=== PATIENT | female | born 2000 | race Caucasian/White ===

== ENCOUNTER 2020-10-01 13:57 | Outpatient (REF) | payer OTHER, SELFPAY | END 2020-10-01 13:58 | disposition home or self-care (01) | LOC: HO.LAB 13:57 | PROVIDERS: PCP Internal Medicine; Visit Provider Internal Medicine | DX: Z20.828 Contact with and (suspected) exposure to other viral communicable diseases (principal) | CPT/HCPCS: C9803; U0003 ==

== ENCOUNTER 2021-02-09 07:48 | Outpatient (REF) | payer OTHER, SELFPAY ==
[2021-02-09 10:28] LABS: SARS COV2 PCR INHOUSE NEGATIVE (Negative)
== END 2021-02-09 07:49 | disposition home or self-care (01) ==
LOC: HO.LAB 07:48
PROVIDERS: Visit Provider Internal Medicine
DX: Z20.822 Contact with and (suspected) exposure to COVID-19 (principal)
CPT/HCPCS: C9803; U0003

== ENCOUNTER 2021-11-09 09:21 | Outpatient (REF) | payer MEDICAID, SELFPAY ==
[2021-11-09 10:19] LABS: COVID-19 Test Negative (Negative); IDNOW Serial# 55D5AD1C
== END 2021-11-09 09:22 | disposition home or self-care (01) ==
LOC: HO.LAB 09:21
PROVIDERS: Visit Provider Internal Medicine
DX: Z20.822 Contact with and (suspected) exposure to COVID-19 (principal)
CPT/HCPCS: 36415; 87635; C9803

== ENCOUNTER 2021-11-09 12:53 | Emergency (ER) | payer MEDICAID, SELFPAY ==
--- NOTE | ~2021-11-09 | XR_ITS ---
EXAMINATION: XR ABDOMEN KUB CLINICAL INDICATION: Abdominal pain and constipation. COMPARISON: None TECHNIQUE: AP view of the abdomen. FINDINGS: There is scattered stool and gas seen throughout the colon without distention. The small bowel loops are normal. No radiopaque calculi or organomegaly. No gross bony abnormality. XR/XR KUB IMPRESSION: Mild constipation.
[2021-11-09 14:10] VITALS: BP 151/92; PULSE 120; RESP 18; TEMP 36.4; O2SAT 96; BMI 44.6
--- NOTE | 2021-11-09 15:05 | ED.GENADULT ---
HPI - General Adult General Chief complaint: General Medical Stated complaint: anal pain Time Seen by Provider: 11/09/21 14:05 Source: patient Mode of arrival: ambulatory Limitations: no limitations History of Present Illness HPI narrative: This is a 21-year-old female no known medical history presenting to the emergency department with complaints of diffuse abdominal pain, rectal pain, constipation alternating with diarrhea x1 week. Patient tells me her last bowel movement was 2 days ago, she tells me that this is not normal for her. She tells me she has been passing hard stool, and she reports rectal pain. She reports the rectal pain as a stinging/burning sensation worse with defecation. She tells me she cannot pinpoint exactly where on her abdomen it hurts she tells me it is diffuse and she describes as a discomfort. Patient has been able to eat and drink. She denies chest pain, shortness of breath, fevers, chills, nausea, vomiting, weakness. She denies blood in stool. Onset (ago): week(s) (1) Location: buttocks (rectal pain ) Radiation: non-radiation Severity: severe Quality: constant and other (stinging ) Pain Consistency: constant Relieving factors: none Exacerbating factors: none Associated symptoms: denies other symptoms Treatments prior to arrival: none Related Data Previous Rx's Medication Instructions Recorded docusate sodium 100 mg capsule 100 mg PO BID #20 cap 11/09/21 (Colace) polyethylene glycol 3350 17 17 g PO BID PRN #238 g 11/09/21 gram/dose oral powder (Miralax) pramoxine 1 % topical foam 1 appl ID BID #15 g 11/09/21 (Proctofoam) sennosides 8.6 mg tablet (senna) 8.6 mg PO BEDTIME #14 tab 11/09/21 Allergies Allergy/AdvReac Type Severity Reaction Status Date / Time bee pollen [BEE STINGS] Allergy Unknown LEGS SWELL Unverified 07/24/20 16:40 UP poppyseed oil [POPPYSEED OIL] Allergy Unknown ITCHY Unverified 07/24/20 16:40 THROAT Review of Systems Review of Systems: Constitutional : No Weight loss, No Fever, No Chills ENT/Mouth :? No sore throat, No Rhinorrhea Eyes: No Swelling, No Redness Cardiovascular : No Chest Pain, No SOB, NoEdema Respiratory : No Cough, No Sputum, No Wheezing Gastrointestinal : No Nausea, No Vomiting, positive Diarrhea, positive abdominal Pain, No Hematochezia, No Melena, positive constipation Genitourinary : No Dysuria, No Urinary Frequency, No Hematuria, No Urgency Musculoskeletal : No joint pain, No Myalgias, No Joint Swelling Skin : No Skin Lesions, No rash Neuro : No Weakness, No Numbness, No Dizziness, No Headache Psych : No Anxiety/Panic, No Depression Heme/Lymph: No Bruising, No Lymphadenopathy Endocrine : No Polyuria, No Polydipsia All other systems reviewed and are negative. Yes all other systems are reviewed and are negative [facility] Past Medical History Attestation statement: The following information was validated with the patient. Source: old records reviewed and nursing notes reviewed Medical History PCOS (polycystic ovarian syndrome) Social History Social History Advance Directives: No Advance Directives Information Provided: No Patient : No Physical Exam Vital Signs: Vital Signs: Last Vital Signs Temp 97.5 F 11/09/21 14:10 Pulse 104 H 11/09/21 16:22 Resp 18 11/09/21 16:22 BP 124/79 11/09/21 16:22 Pulse Ox 96 11/09/21 16:22 BMI result Body Mass Index 44.6 Vital signs stable. Patient noted to be slightly tachycardic however, likely secondary to anxiety. Appearance: Alert.? Oriented X3.? No acute distress.? Head: Normocephalic, atraumatic, no step-offs or deformities Eyes: Pupils equal, round and reactive to light.? ENT: Pharynx normal.? Neck: Normal inspection.? Neck supple.? CVS: Normal heart rate and rhythm.? Pulses normal.? Respiratory: No respiratory distress.? Breath sounds normal.? Rectal exam: +pain with external palpation, small linear skin tear noted. No hemorrhoid lumps or masses upon palpation. Abdomen: Soft and nontender.? Skin: Skin warm and dry.? Normal skin color.? Normal skin turgor.? Extremities: No lower extremity edema.? No calf ttp. 5/5 strength to bilateral upper and lower extremities Back: No midline tenderness, no C-spine tenderness, full range of motion, no CVA tenderness bilaterally Neuro: Oriented X 3.? No motor deficit.? No sensory deficit. Course Reevaluation(s) Reevaluation #1: KUB shows mild constipation. UA no acute infection. Patient still anxious. Patient will be given Colace and senna. She will be discharged home on Colace, senna and MiraLax. I have also given patient a Fleet enema. I have advised her to return to the emergency department with new or worsening symptoms. Feel comfortable with discharge home. Time: 16:19 Medical Decision Making [facility] Narrative Medical decision making narrative: [age] yo f pmhx PCOS presents with diarrhea alternating with constipation, diffuse abdominal discomfort and rectal pain x1 week. Upon physical examination there is pain with external palpation of rectum and there is a small linear skin tear noted. No hemorrhoid lumps or masses upon palpation. Rest of the physical examination is benign. Vital signs stable, slightly likely secondary to anxiety. Plan at this time is to obtain a KUB. I will give her senna and Colace. I will also give her Fleet enema for home. Medical Records Medical records reviewed: Yes I reviewed the patient's medical records. Lab Data Lab results reviewed: Yes I reviewed the patient's lab results. Imaging Data KUB: Attestation: I personally reviewed and interpreted this imaging study as follows: Radiologist's impression: FINDINGS: There is scattered stool and gas seen throughout the colon without distention. The small bowel loops are normal. No radiopaque calculi or organomegaly. No gross bony abnormality. XR/XR KUB IMPRESSION: Mild constipation. ? Critical Care Time Critical Care Time Critical Care Time: No Discharge Plan Discharge Clinical Impression: Rectal tear, Constipation, Irritable bowel syndrome Patient Disposition: Home, Self-Care Instructions: Constipation (ED), Laceration (ED), Fleet Enema (ED) Additional Instructions: Take your medications as prescribed. If you were prescribed antibiotics today, it is important that you take your medication to their entirety, do not skip any doses, do not finish them early. Follow-up with your primary care provider this week. Return to the emergency department with new or worsening symptoms. In case of emergency call 911 Prescriptions: New sennosides [senna] 8.6 mg tablet 8.6 mg PO BEDTIME Qty: 14 RF: 0 docusate sodium [Colace] 100 mg capsule 100 mg PO BID Qty: 20 RF: 0 polyethylene glycol 3350 [Miralax] 17 gram/dose powder 17 g PO BID PRN (Reason: constipation) Qty: 238 RF: 0 pramoxine [Proctofoam] 1 % foam 1 appl ID BID Qty: 15 RF: 0 Referrals: Mary Lim NP [Primary Care Provider] - 2 days Stand Alone Forms: Work/School Release
[2021-11-09] MEDS: Docusate Sodium 100 MG CAPSULE PO (15:37)
[2021-11-09] MEDS: Sodium Phosphate,Mono-Dibasic 133 ML ENEMA PR (15:37)
[2021-11-09 16:22] VITALS: BP 124/79; PULSE 104; RESP 18; O2SAT 96
== END 2021-11-09 16:29 | disposition home or self-care (01) ==
PROVIDERS: Emergency Provider Emergency Medicine; PCP Registered Nurse
DX: K62.81 Anal sphincter tear (healed) (nontraumatic) (old) (principal); K58.0 Irritable bowel syndrome with diarrhea; R00.0 Tachycardia, unspecified; F41.9 Anxiety disorder, unspecified
CPT/HCPCS: 74018; 99283

== ENCOUNTER 2021-12-17 13:54 | Emergency (ER) | payer MEDICAID, SELFPAY ==
[2021-12-17 14:02] VITALS: BP 138/84; PULSE 98; RESP 18; TEMP 36.4; O2SAT 100; BMI 40.3
--- NOTE | 2021-12-17 14:19 | ED.BACK ---
HPI - Back Pain/Injury General Chief Complaint: Back Pain/Injury Stated Complaint: back pain fall Time Seen by Provider: 12/17/21 14:18 Source: patient Mode of arrival: ambulatory Limitations: no limitations History of Present Illness HPI Narrative: 21 y/o female presents to the ER with left upper back pain after she slipped and fell into amount of ice yesterday morning. She states she slipped and fell back onto her left hip and in her left back. She reports soreness and tightness in the left back below her left shoulder blade. She has been taking Motrin and using Lidoderm patches with some minimal improvement. She also been using a heating pad some improvement. She went to work today where she has to do a lot of lifting and using of her arms and reports she was unable to perform her duties so she came to the ER for evaluation. She denies any chest pain or shortness of breath. She denies any shoulder pain. No current hip pain. She is ambulatory. MD elicited complaint: back injury and fall Onset (ago): day(s) (1) Timing: intermittent Severity: moderate Similar Symptoms Previously: No Quality: aching and spasming Location: left upper back Radiation: none Exacerbating factors: movement and lifting Relieving factors: medication and supine Context: fall Associated symptoms: denies other symptoms Treatments prior to arrival: NSAIDS Work related injury: No Related Data Previous Rx's Medication Instructions Recorded docusate sodium 100 mg capsule 100 mg PO BID #20 cap 11/09/21 (Colace) polyethylene glycol 3350 17 17 g PO BID PRN #238 g 11/09/21 gram/dose oral powder (Miralax) pramoxine 1 % topical foam 1 appl MS BID #15 g 11/09/21 (Proctofoam) sennosides 8.6 mg tablet (senna) 8.6 mg PO BEDTIME #14 tab 11/09/21 cyclobenzaprine 10 mg tablet 10 mg PO TID PRN #10 tab 12/17/21 ibuprofen 600 mg tablet 600 mg PO Q8H PRN #20 tab 12/17/21 Allergies Allergy/AdvReac Type Severity Reaction Status Date / Time bee pollen [BEE STINGS] Allergy Unknown LEGS SWELL Unverified 07/24/20 16:40 UP poppyseed oil [POPPYSEED OIL] Allergy Unknown ITCHY Unverified 07/24/20 16:40 THROAT Review of Systems Review of Systems: Constitutional: No Fever, No Chills Cardiovascular: No Chest Pain, No SOB Gastrointestinal: No Nausea, No Vomiting,No abdominal Pain Musculoskeletal: No joint pain,+ Myalgias Skin: No Skin Lesions, No rash Neuro: No Weakness, No Numbness, No Dizziness, No Headache Heme/Lymph: No Bruising PMFSH Past Medical History Medical History PCOS (polycystic ovarian syndrome) Social History Social History Advance Directives: No Advance Directives Information Provided: Yes Physical Exam Vital Signs: Vital Signs: Last Vital Signs Temp 97.5 F 12/17/21 14:02 Pulse 98 12/17/21 14:02 Resp 18 12/17/21 14:02 BP 138/84 12/17/21 14:02 Pulse Ox 100 12/17/21 14:02 BMI result Body Mass Index 40.3 Appearance: Alert. Oriented X3. No acute distress. HEENT: normal inspection CVS: Normal heart rate and rhythm. Pulses normal. Respiratory: No respiratory distress. Lungs CTAB Skin: Skin warm and dry. Normal skin color. Normal skin turgor. No rashes. Back: normal inspection, no abrasions or ecchymosis. Inferior to left scapula there is soft tissue tenderness and palpable muscle spasm. nontender scapula Extremities: normal inspection, normal ROM x4. nontender throughout Neuro: Oriented X 3. No motor deficit. No sensory deficit. Course Course Course Narrative: 21-year-old female presents with upper back pain after she slipped and fell into ice and snow yesterday. On examination she has muscle tenderness and spasm inferiorly to her left scapula with a palpable band of muscle knot. Normal ROM of the shoulder. her pain is most likely due to muscle strain and spasm. doubt acute scapular fracture given force required to break that bone. She has no SOB or chest pain. Will plan to continue NSAID and lidoderm and add muscle relaxer. Patient agrees with plan. Stable for d/c. Critical Care Time Critical Care Time Critical Care Time: No Discharge Plan Discharge Clinical Impression: Acute upper back pain Patient Disposition: Home, Self-Care Instructions: Muscle Spasm (ED) Additional Instructions: Your pain is most likely due to muscle strain and spasm. No bending, lifting or twisting. Use ice several times per day for 20 minutes at a time for the next 48 hours and then change to heat. Take medications as prescribed to help with pain and discomfort. Follow up with your Primary Care Doctor this week. If your pain worsens, if you develop new numbness, tingling, weakness, loss of function or incontinence call 911 or come back to the ER right away for evaluation. Prescriptions: New cyclobenzaprine 10 mg tablet 10 mg PO TID PRN (Reason: muscle spasm) Qty: 10 0RF ibuprofen 600 mg tablet 600 mg PO Q8H PRN (Reason: fever or pain) Qty: 20 0RF No Action sennosides [senna] 8.6 mg tablet 8.6 mg PO BEDTIME Qty: 14 0RF docusate sodium [Colace] 100 mg capsule 100 mg PO BID Qty: 20 0RF polyethylene glycol 3350 [Miralax] 17 gram/dose powder 17 g PO BID PRN (Reason: constipation) Qty: 238 0RF pramoxine [Proctofoam] 1 % foam 1 appl MS BID Qty: 15 0RF Stand Alone Forms: Work/School Release
== END 2021-12-17 14:54 | disposition home or self-care (01) ==
PROVIDERS: Emergency Provider Emergency Medicine Emergency Medical Services
DX: S29.9XXA Unspecified injury of thorax, initial encounter (principal); S40.212A Abrasion of left shoulder, initial encounter; M25.552 Pain in left hip; M25.512 Pain in left shoulder; W00.0XXA Fall on same level due to ice and snow, initial encounter; Y93.9 Activity, unspecified; Y92.9 Unspecified place or not applicable; Y99.9 Unspecified external cause status; Z79.899 Other long term (current) drug therapy
CPT/HCPCS: 99283

== ENCOUNTER 2023-03-02 14:00 | Emergency (ER) | payer OTHER, SELFPAY ==
--- NOTE | ~2023-03-02 | CT_ITS ---
EXAMINATION: CT ABDOMEN AND PELVIS WITH CONTRAST CLINICAL INFORMATION: Left flank pain, UTI symptoms COMPARISON: CT abdomen pelvis 04/12/2020 TECHNIQUE: Multidetector volumetric images were obtained from the superior aspect of the liver through the pubic symphysis following administration 85 mL of Omnipaque 350 intravenous contrast. Sagittal and coronal reformatted images were obtained on the technologist's workstation. Oral contrast: No This CT examination was performed using dose optimization techniques as appropriate, variously including the following: *Automated exposure control *Adjustment of mA and/or kV according to patient size (this includes techniques or standardized protocols for targeted exams where dose is matched to indication/reason for exam; i.e. extremities or head) *Use of iterative reconstruction technique DLP: 799 mGy-cm FINDINGS: LUNG BASES: Unremarkable. ABDOMINAL AND PELVIC WALL: Unremarkable. LIVER AND BILIARY TREE: Hypoattenuating hepatic parenchyma compatible with hepatic steatosis. GALLBLADDER: Unremarkable. PANCREAS: Unremarkable. SPLEEN: Unremarkable. ADRENAL GLANDS: Unremarkable. KIDNEYS AND URETERS: Subcentimeter left renal hypodensity too small to characterize. GASTROINTESTINAL TRACT: Large and small bowel are nondilated without evidence of bowel obstruction. Normal appendix. VASCULAR: Unremarkable. LYMPH NODES/PERITONEUM: No lymphadenopathy. FREE FLUID: None. BLADDER: Unremarkable. PELVIC VISCERA: Unremarkable. OSSEOUS STRUCTURES: Unremarkable. CT/CT abdomen pelvis w IV con IMPRESSION: No acute findings to explain symptoms of abdominal pain. Hepatic steatosis.
[2023-03-02 14:33] VITALS: BP 132/94; PULSE 98; RESP 18; TEMP 36.6; O2SAT 99; BMI 39.4
--- NOTE | 2023-03-02 14:33 | ED.GENADULT ---
HPI - General Adult General Chief complaint: Abdominal Pain <KAYLEE Marie - Last Filed: 03/02/23 14:36> Stated complaint: Low back pain <KAYLEE Marie - Last Filed: 03/02/23 14:36> Time Seen by Provider: 03/02/23 16:06 <KAYLEE Marie - Last Filed: 03/02/23 14:36> Source: patient, family and RN notes reviewed <Zenon Posada - Last Filed: 03/02/23 19:43> Mode of arrival: ambulatory <Zenon Posada - Last Filed: 03/02/23 19:43> Limitations: no limitations <Zenon Posada - Last Filed: 03/02/23 19:43> History of Present Illness HPI narrative: 22-year-old female past medical history significant for obesity, diabetes presents for evaluation of left flank pain. She reports her symptoms started 2 or 3 days ago. She reports occasional dysuria Her pain radiates around to her lower abdomen. Reports some general malaise denies any fevers or chills Reports some nausea without vomiting. No diarrhea Patient denies any history of abdominal surgeries Denies sick contacts No abnormal vaginal bleeding or discharge <Zenon Posada - Last Filed: 03/02/23 19:43> Related Data Home medications: Previous Rx's Medication Instructions Recorded docusate sodium 100 mg capsule 100 mg PO BID #20 caps 11/09/21 (Colace) polyethylene glycol 3350 17 17 g PO BID PRN constipation #238 11/09/21 gram/dose oral powder (Miralax) grams pramoxine 1 % topical foam 1 appl [place] BID #15 grams 11/09/21 (Proctofoam) sennosides 8.6 mg tablet (senna) 8.6 mg PO BEDTIME #14 tabs 11/09/21 cyclobenzaprine 10 mg tablet 10 mg PO TID PRN muscle spasm #10 12/17/21 tabs ibuprofen 600 mg tablet 600 mg PO Q8H PRN fever or pain 12/17/21 #20 tabs nitrofurantoin 100 mg PO Q12H 7 days #14 caps 03/02/23 monohydrate/macrocrystals 100 mg capsule (Macrobid) <KAYLEE Marie - Last Filed: 03/02/23 14:36> Allergies/adverse reactions: Allergies Allergy/AdvReac Type Severity Reaction Status Date / Time bee pollen [BEE STINGS] Allergy Unknown LEGS SWELL Verified 03/02/23 14:35 UP poppyseed oil [POPPYSEED OIL] Allergy Unknown ITCHY Verified 03/02/23 14:35 THROAT <KAYLEE Marie - Last Filed: 03/02/23 14:36> Review of Systems Constitutional: Constitutional: Reports as per HPI, Denies chills, Denies fever(s), Denies headache(s) and Reports malaise <Zenon Posada - Last Filed: 03/02/23 19:43> ENT: Denies headache(s) <Zenon Posada - Last Filed: 03/02/23 19:43> Cardiovascular: Cardiovascular: Denies chest pain and Denies dyspnea <Zenon Posada - Last Filed: 03/02/23 19:43> Respiratory: Respiratory: Denies cough and Denies dyspnea <Zenon Posada - Last Filed: 03/02/23 19:43> Gastrointestinal: Gastrointestinal: Reports abdominal pain, Denies constipation, Reports nausea and Denies vomiting <Zenon Posada - Last Filed: 03/02/23 19:43> Genitourinary: Genitourinary: Reports dysuria <Zenon Posada - Last Filed: 03/02/23 19:43> Musculoskeletal: Musculoskeletal: Reports back pain and Reports myalgias <Zenon Posada - Last Filed: 03/02/23 19:43> Neurologic: Denies headache(s) and Denies focal weakness <Zenon Posada - Last Filed: 03/02/23 19:43> PMFSH Past Medical History Medical History: Medical History PCOS (polycystic ovarian syndrome) <KAYLEE Marie - Last Filed: 03/02/23 14:36> Social History Social History: Social History Smoked in Last 30 Days: No Use of substances other than those prescribed or required for medical reasons: Yes Substance Use Type: Marijuana Substance Use Frequency: Occasionally Advance Directives: No Advance Directives Information Provided: No <KAYLEE Marie - Last Filed: 03/02/23 14:36> Physical Exam ED Vital Signs: Vital Signs - 24 hr 03/02/23 14:33 03/02/23 17:20 Temperature 97.8 F Pulse Rate 98 69 Respiratory Rate 18 14 Blood Pressure 132/94 H 125/76 Pulse Oximetry 99 98 Oxygen Delivery Method Room Air Room Air BMI result Body Mass Index 39.4 <KAYLEE Marie - Last Filed: 03/02/23 14:36> Vital Signs - 24 hr 03/02/23 14:33 03/02/23 17:20 Temperature 97.8 F Pulse Rate 98 69 Respiratory Rate 18 14 Blood Pressure 132/94 H 125/76 Pulse Oximetry 99 98 Oxygen Delivery Method Room Air Room Air BMI result Body Mass Index 39.4 <Zenon Posada - Last Filed: 03/02/23 19:43> Const General: healthy appearing, comfortable, no acute distress, alert and awake <Zenon Posada - Last Filed: 03/02/23 19:43> Nutritional Appearance: well nourished <Zenon Posada - Last Filed: 03/02/23 19:43> Orientation/consciousness: patient oriented x3 <Zenon Posada - Last Filed: 03/02/23 19:43> HENMT Head: Yes normocephalic and Yes atraumatic <Zenon Posada - Last Filed: 03/02/23 19:43> Throat: Yes posterior oropharynx normal <Zenon Posada - Last Filed: 03/02/23 19:43> Eyes Eyelids: Yes eyelids normal <Zenon Posada - Last Filed: 03/02/23 19:43> Conjunctivae: conjunctivae normal <Zenon Whitty - Last Filed: 03/02/23 19:43> Sclerae: sclerae normal <Zenon Whitty - Last Filed: 03/02/23 19:43> Corneas: corneas normal <Zenon Whitty - Last Filed: 03/02/23 19:43> Pupils: Equal, round and reactive pupils present < Last Filed: 03/02/23 19:43> EOM: EOMs intact bilaterally < Last Filed: 03/02/23 19:43> Neck Neck: Yes full ROM < Last Filed: 03/02/23 19:43> Resp Effort & Inspection: normal respiratory effort, able to speak in complete sentences, no audible wheezes and not labored < Last Filed: 03/02/23 19:43> Auscultation: clear to auscultation bilaterally < Last Filed: 03/02/23 19:43> Cardio Rate: regular rate < Last Filed: 03/02/23 19:43> Rhythm: regular rhythm < Last Filed: 03/02/23 19:43> GI Inspection: No distended and Yes obesity < Last Filed: 03/02/23 19:43> Palpation (GI): Soft to palpation, not firm, nontender, no guarding and not rigid < Last Filed: 03/02/23 19:43> Auscultation: normoactive bowel sounds < Last Filed: 03/02/23 19:43> Skin General skin exam: no rashes or lesions noted and elasticity normal < Last Filed: 03/02/23 19:43> Neuro General: patient oriented x3 < Last Filed: 03/02/23 19:43> Cranial nerves: Yes Equal, round and reactive pupils present and Yes Bilaterally intact EOM present < Last Filed: 03/02/23 19:43> Cognition (Neuro): normal cognition < Last Filed: 03/02/23 19:43> Extrem Other: Moving all extremities well without any obvious deformities < Last Filed: 03/02/23 19:43> Course Course Course Narrative: This is an RME: Additional HPI, ROS, PE not included below will be deferred to primary provider. 22 year old female with PMH of pyelonephritis presents to the ED with a few days of left flank pain and urinary symptoms. Patient reports her urine and slightly cloudy and foul smelling. UTI-like symptoms. PE: L sided CVA tenderness Plan: Labs, urine, imaging <KAYLEE Marie - Last Filed: 03/02/23 14:36> Reevaluation(s) Reevaluation #1: Patient's workup significant for hyperglycemia, no evidence of DKA. She does have a mild UTI. CT without acute findings. This was all discussed with the patient and her mother who is bedside. <Zenon Posada - Last Filed: 03/02/23 19:43> Time: 19:41 <Zenon Posada - Last Filed: 03/02/23 19:43> Medications Administered Discontinued Medications Generic Name Dose Route Start Last Admin Trade Name Freq PRN Reason Stop Dose Admin Sodium Chloride 1,000 mls @ 999 mls/hr 03/02/23 14:45 03/02/23 18:45 Ns IV 03/02/23 15:45 Infused .Q1H1M EDWARD Infusion Iohexol 100 ml 03/02/23 17:33 03/02/23 17:34 Iohexol 350 Mg/Ml 100 Ml Infus..Btl IV 03/02/23 17:34 85 ml ONCE ONE Administration Ketorolac Tromethamine 30 mg 03/02/23 17:31 03/02/23 17:36 Ketorolac Tromethamine 30 Mg/Ml Vial IVPUSH 03/02/23 17:32 30 mg ONCE ONE Administration <KAYLEE Marie - Last Filed: 03/02/23 14:36> Medications Administered Discontinued Medications Generic Name Dose Route Start Last Admin Trade Name Freq PRN Reason Stop Dose Admin Sodium Chloride 1,000 mls @ 999 mls/hr 03/02/23 14:45 03/02/23 18:45 Ns IV 03/02/23 15:45 Infused .Q1H1M EDWARD Infusion Iohexol 100 ml 03/02/23 17:33 03/02/23 17:34 Iohexol 350 Mg/Ml 100 Ml Infus..Btl IV 03/02/23 17:34 85 ml ONCE ONE Administration Ketorolac Tromethamine 30 mg 03/02/23 17:31 03/02/23 17:36 Ketorolac Tromethamine 30 Mg/Ml Vial IVPUSH 03/02/23 17:32 30 mg ONCE ONE Administration <Zenon Posada - Last Filed: 03/02/23 19:43> Medical Decision Making Medical Decision Making MDM Narrative: This is a healthy 22-year-old female presents for evaluation of left flank pain. She reports some urinary complaints. Denies any blood in the urine. Most likely UTI/pyelonephritis. Will check labs, CT scan the abdomen pelvis. UA pending. Patient medicated with Toradol IM <Zenon Posada - Last Filed: 03/02/23 19:43> Differential Diagnosis UTI Pyelonephritis Obstructive uropathy Flank pain Gastroenteritis <Zenon Posada - Last Filed: 03/02/23 19:43> Lab Data Result Diagrams: 03/02/23 15:37 03/02/23 15:37 <KAYLEE Marie - Last Filed: 03/02/23 14:36> Labs: Lab Results 03/02/23 03/02/23 03/02/23 Range/Units 15:37 15:37 15:37 WBC 8.1 (4.8-10.8) X10*3/uL RBC 5.39 (4.20-5.50) X10*6/uL Hgb 15.9 (12.0-16.0) g/dl Hct 46.0 (37.0-47.0) % MCV 85.3 (80.0-98.0) fL MCH 29.5 (27.0-33.0) pg MCHC 34.6 (31.0-35.0) g/dl RDW 12.3 (11.0-16.0) % Plt Count 173 (160-400) X10*3/uL MPV 10.4 (9.4-12.3) fL Immature Gran % (Auto) 0.4 (0.0-0.4) % Neut % (Auto) 53.6 (45-73) % Lymph % (Auto) 34.6 (20-40) % [place] % (Auto) 7.5 (2-11) % Eos % (Auto) 3.3 (0-4) % Baso % (Auto) 0.6 (0-2) % Lymph # (Auto) 2.8 (1.2-4.9) X10*3/uL [place] # (Auto) 0.6 (0.1-1.2) X10*3/uL Eos # (Auto) 0.3 (0.0-0.4) X10*3/uL Baso # (Auto) 0.1 (0.0-0.2) X10*3/uL Abs Immat Gran (auto) 0.03 (0.00-0.03) X10*3/uL Absolute Neuts (auto) 4.4 (2.0-8.3) x10*3/uL Absolute Nucleated RBC 0.000 (0.0-0.012) X10*3/uL Nucleated RBC % (auto) 0.0 (0.0-0.2) /100WBC Smear Tech's Comments VERIFIED Sodium 137 (135-145) mmol/L Potassium 4.4 (3.3-5.1) mmol/L Chloride 109 H (96-108) mmol/L Carbon Dioxide 20 L (22-29) mmol/L Anion Gap 12 (12-20) BUN 11 (9-16) mg/dL Creatinine 0.82 (0.5-1.4) mg/dL Estim Creat Clear Calc 124.4 Estimated GFR > 60 Random Glucose 323 H (60-115) mg/dL Calcium 8.7 (8.4-10.2) mg/dL Magnesium 1.9 (1.6-2.6) mg/dL Total Bilirubin 0.5 (0.0-1.0) mg/dL AST 59 H (5-31) U/L ALT 125 H (0-31) U/L Alkaline Phosphatase 56 (39-117) U/L Total Protein 6.5 (6.5-8.0) g/dL Albumin 3.9 (3.5-5.0) g/dL Beta HCG, Quant < 2 mIU/mL Urine Color Urine Appearance Urine pH (5.0-9.0) Ur Specific [place] (1.005-1.025) Urine Protein (Neg-Trace) mg/dL Urine Glucose (UA) (Negative) mg/dL Urine Ketones (Negative) mg/dL Urine Blood (Negative) Urine Nitrite (Negative) Ur Leukocyte Esterase (Negative) Urine RBC (0-2) /HPF Urine WBC (0-5) /HPF Ur Squamous Epith Cells (0-2) /HPF Urine Bacteria (None Seen) Hyaline Casts (0-2) /LPF Urine Yeast 03/02/23 Range/Units 17:01 WBC (4.8-10.8) X10*3/uL RBC (4.20-5.50) X10*6/uL Hgb (12.0-16.0) g/dl Hct (37.0-47.0) % MCV (80.0-98.0) fL MCH (27.0-33.0) pg MCHC (31.0-35.0) g/dl RDW (11.0-16.0) % Plt Count (160-400) X10*3/uL MPV (9.4-12.3) fL Immature Gran % (Auto) (0.0-0.4) % Neut % (Auto) (45-73) % Lymph % (Auto) (20-40) % [place] % (Auto) (2-11) % Eos % (Auto) (0-4) % Baso % (Auto) (0-2) % Lymph # (Auto) (1.2-4.9) X10*3/uL [place] # (Auto) (0.1-1.2) X10*3/uL Eos # (Auto) (0.0-0.4) X10*3/uL Baso # (Auto) (0.0-0.2) X10*3/uL Abs Immat Gran (auto) (0.00-0.03) X10*3/uL Absolute Neuts (auto) (2.0-8.3) x10*3/uL Absolute Nucleated RBC (0.0-0.012) X10*3/uL Nucleated RBC % (auto) (0.0-0.2) /100WBC Smear Tech's Comments Sodium (135-145) mmol/L Potassium (3.3-5.1) mmol/L Chloride (96-108) mmol/L Carbon Dioxide (22-29) mmol/L Anion Gap (12-20) BUN (9-16) mg/dL Creatinine (0.5-1.4) mg/dL Estim Creat Clear Calc Estimated GFR Random Glucose (60-115) mg/dL Calcium (8.4-10.2) mg/dL Magnesium (1.6-2.6) mg/dL Total Bilirubin (0.0-1.0) mg/dL AST (5-31) U/L ALT (0-31) U/L Alkaline Phosphatase (39-117) U/L Total Protein (6.5-8.0) g/dL Albumin (3.5-5.0) g/dL Beta HCG, Quant mIU/mL Urine Color Yellow Urine Appearance Clear Urine pH 5.5 (5.0-9.0) Ur Specific [place] >= 1.030 H (1.005-1.025) Urine Protein Negative (Neg-Trace) mg/dL Urine Glucose (UA) >=1000 H (Negative) mg/dL Urine Ketones Trace (Negative) mg/dL Urine Blood Negative (Negative) Urine Nitrite Negative (Negative) Ur Leukocyte Esterase Trace H (Negative) Urine RBC 3-5 H (0-2) /HPF Urine WBC 11-20 (0-5) /HPF Ur Squamous Epith Cells 11-20 (0-2) /HPF Urine Bacteria 1+ (None Seen) Hyaline Casts 0-2 (0-2) /LPF Urine Yeast Present <KAYLEE Marie - Last Filed: 03/02/23 14:36> Lab Results 03/02/23 03/02/23 03/02/23 Range/Units 15:37 15:37 15:37 WBC 8.1 (4.8-10.8) X10*3/uL RBC 5.39 (4.20-5.50) X10*6/uL Hgb 15.9 (12.0-16.0) g/dl Hct 46.0 (37.0-47.0) % MCV 85.3 (80.0-98.0) fL MCH 29.5 (27.0-33.0) pg MCHC 34.6 (31.0-35.0) g/dl RDW 12.3 (11.0-16.0) % Plt Count 173 (160-400) X10*3/uL MPV 10.4 (9.4-12.3) fL Immature Gran % (Auto) 0.4 (0.0-0.4) % Neut % (Auto) 53.6 (45-73) % Lymph % (Auto) 34.6 (20-40) % [place] % (Auto) 7.5 (2-11) % Eos % (Auto) 3.3 (0-4) % Baso % (Auto) 0.6 (0-2) % Lymph # (Auto) 2.8 (1.2-4.9) X10*3/uL [place] # (Auto) 0.6 (0.1-1.2) X10*3/uL Eos # (Auto) 0.3 (0.0-0.4) X10*3/uL Baso # (Auto) 0.1 (0.0-0.2) X10*3/uL Abs Immat Gran (auto) 0.03 (0.00-0.03) X10*3/uL Absolute Neuts (auto) 4.4 (2.0-8.3) x10*3/uL Absolute Nucleated RBC 0.000 (0.0-0.012) X10*3/uL Nucleated RBC % (auto) 0.0 (0.0-0.2) /100WBC Smear Tech's Comments VERIFIED Sodium 137 (135-145) mmol/L Potassium 4.4 (3.3-5.1) mmol/L Chloride 109 H (96-108) mmol/L Carbon Dioxide 20 L (22-29) mmol/L Anion Gap 12 (12-20) BUN 11 (9-16) mg/dL Creatinine 0.82 (0.5-1.4) mg/dL Estim Creat Clear Calc 124.4 Estimated GFR > 60 Random Glucose 323 H (60-115) mg/dL Calcium 8.7 (8.4-10.2) mg/dL Magnesium 1.9 (1.6-2.6) mg/dL Total Bilirubin 0.5 (0.0-1.0) mg/dL AST 59 H (5-31) U/L ALT 125 H (0-31) U/L Alkaline Phosphatase 56 (39-117) U/L Total Protein 6.5 (6.5-8.0) g/dL Albumin 3.9 (3.5-5.0) g/dL Beta HCG, Quant < 2 mIU/mL Urine Color Urine Appearance Urine pH (5.0-9.0) Ur Specific [place] (1.005-1.025) Urine Protein (Neg-Trace) mg/dL Urine Glucose (UA) (Negative) mg/dL Urine Ketones (Negative) mg/dL Urine Blood (Negative) Urine Nitrite (Negative) Ur Leukocyte Esterase (Negative) Urine RBC (0-2) /HPF Urine WBC (0-5) /HPF Ur Squamous Epith Cells (0-2) /HPF Urine Bacteria (None Seen) Hyaline Casts (0-2) /LPF Urine Yeast 03/02/23 Range/Units 17:01 WBC (4.8-10.8) X10*3/uL RBC (4.20-5.50) X10*6/uL Hgb (12.0-16.0) g/dl Hct (37.0-47.0) % MCV (80.0-98.0) fL MCH (27.0-33.0) pg MCHC (31.0-35.0) g/dl RDW (11.0-16.0) % Plt Count (160-400) X10*3/uL MPV (9.4-12.3) fL Immature Gran % (Auto) (0.0-0.4) % Neut % (Auto) (45-73) % Lymph % (Auto) (20-40) % [place] % (Auto) (2-11) % Eos % (Auto) (0-4) % Baso % (Auto) (0-2) % Lymph # (Auto) (1.2-4.9) X10*3/uL [place] # (Auto) (0.1-1.2) X10*3/uL Eos # (Auto) (0.0-0.4) X10*3/uL Baso # (Auto) (0.0-0.2) X10*3/uL Abs Immat Gran (auto) (0.00-0.03) X10*3/uL Absolute Neuts (auto) (2.0-8.3) x10*3/uL Absolute Nucleated RBC (0.0-0.012) X10*3/uL Nucleated RBC % (auto) (0.0-0.2) /100WBC Smear Tech's Comments Sodium (135-145) mmol/L Potassium (3.3-5.1) mmol/L Chloride (96-108) mmol/L Carbon Dioxide (22-29) mmol/L Anion Gap (12-20) BUN (9-16) mg/dL Creatinine (0.5-1.4) mg/dL Estim Creat Clear Calc Estimated GFR Random Glucose (60-115) mg/dL Calcium (8.4-10.2) mg/dL Magnesium (1.6-2.6) mg/dL Total Bilirubin (0.0-1.0) mg/dL AST (5-31) U/L ALT (0-31) U/L Alkaline Phosphatase (39-117) U/L Total Protein (6.5-8.0) g/dL Albumin (3.5-5.0) g/dL Beta HCG, Quant mIU/mL Urine Color Yellow Urine Appearance Clear Urine pH 5.5 (5.0-9.0) Ur Specific [place] >= 1.030 H (1.005-1.025) Urine Protein Negative (Neg-Trace) mg/dL Urine Glucose (UA) >=1000 H (Negative) mg/dL Urine Ketones Trace (Negative) mg/dL Urine Blood Negative (Negative) Urine Nitrite Negative (Negative) Ur Leukocyte Esterase Trace H (Negative) Urine RBC 3-5 H (0-2) /HPF Urine WBC 11-20 (0-5) /HPF Ur Squamous Epith Cells 11-20 (0-2) /HPF Urine Bacteria 1+ (None Seen) Hyaline Casts 0-2 (0-2) /LPF Urine Yeast Present <Zenon Posada - Last Filed: 03/02/23 19:43> Discharge Plan Discharge Clinical Impression: Urinary tract infection <KAYLEE Marie - Last Filed: 03/02/23 14:36> Patient Disposition: Home, Self-Care <KAYLEE Marie - Last Filed: 03/02/23 14:36> Instructions: Urinary Tract Infection in Women (ED) <KAYLEE Marie - Last Filed: 03/02/23 14:36> Additional Instructions: Your CT scan did not show any abnormal findings. Your blood work was only significant for high blood sugar which was treated with IV fluids. Follow-up with your primary doctor regarding this Your urine sample did show a UTI Take Macrobid twice daily for the next 7 days <KAYLEE Marie - Last Filed: 03/02/23 14:36> Prescriptions: New nitrofurantoin monohyd/m-cryst [Macrobid] 100 mg capsule 100 mg PO Q12H 7 Days Qty: 14 0RF Rx Instructions: must administer with a meal/food No Action sennosides [senna] 8.6 mg tablet 8.6 mg PO BEDTIME Qty: 14 0RF docusate sodium [Colace] 100 mg capsule 100 mg PO BID Qty: 20 0RF polyethylene glycol 3350 [Miralax] 17 gram/dose powder 17 g PO BID PRN (Reason: constipation) Qty: 238 0RF pramoxine [Proctofoam] 1 % foam 1 appl [place] BID Qty: 15 0RF cyclobenzaprine 10 mg tablet 10 mg PO TID PRN (Reason: muscle spasm) Qty: 10 0RF ibuprofen 600 mg tablet 600 mg PO Q8H PRN (Reason: fever or pain) Qty: 20 0RF <KAYLEE Marie - Last Filed: 03/02/23 14:36>
[2023-03-02 15:55] LABS: Eosinophils Absolute Auto 0.3 X10*3/uL (0.0-0.4); PLT CLUMP 1; SCAN SMEAR FLAG 1
[2023-03-02 15:57] LABS: Basophils Absolute Auto 0.1 X10*3/uL (0.0-0.2); Basophils Percent Auto 0.6 % (0-2); Eosinophils Percent Auto 3.3 % (0-4); Hemoglobin 15.9 g/dl (12.0-16.0); Imm Gran Abs Auto 0.03 X10*3/uL (0.00-0.03); Imm Gran Pct Auto 0.4 % (0.0-0.4); Lymphocytes Absolute Auto 2.8 X10*3/uL (1.2-4.9); Lymphocytes Percent Auto 34.6 % (20-40); MANUAL DIFF FLAG SCAN; Mean Corpuscular HGB Conc 34.6 g/dl (31.0-35.0); Mean Corpuscular Hemoglobin 29.5 pg (27.0-33.0); Mean Corpuscular Volume 85.3 fL (80.0-98.0); Mean Platelet Volume 10.4 fL (9.4-12.3); Monocytes Absolute Auto 0.6 X10*3/uL (0.1-1.2); Monocytes Percent Auto 7.5 % (2-11); Neutrophils Absolute Auto 4.4 x10*3/uL (2.0-8.3); Neutrophils Percent Auto 53.6 % (45-73); Red Blood Count 5.39 X10*6/uL (4.20-5.50); Red Cell Distribution Width 12.3 % (11.0-16.0)
[2023-03-02 16:15] LABS: White Blood Count 8.1 X10*3/uL (4.8-10.8)
[2023-03-02 16:18] LABS: Platelet Count 173 X10*3/uL (160-400); SLIDE REVIEW VERIFIED
[2023-03-02 16:32] LABS: Alanine Aminotransferase 125 U/L (0-31); Albumin Level 3.9 g/dL (3.5-5.0); Alkaline Phosphatase 56 U/L (39-117); Anion Gap 12 (12-20); Aspartate Amino Transferase 59 U/L (5-31); Bilirubin Total 0.5 mg/dL (0.0-1.0); Blood Urea Nitrogen 11 mg/dL (9-16); Calcium 8.7 mg/dL (8.4-10.2); Carbon Dioxide 20 mmol/L (22-29); Chloride 109 mmol/L (96-108); Creatinine Clr Calc Pharmacy 124.4; Estimated Glomerular Filt Rate > 60; Glucose Random 323 mg/dL (60-115); Magnesium 1.9 mg/dL (1.6-2.6); Potassium 4.4 mmol/L (3.3-5.1); Sodium 137 mmol/L (135-145); Total Protein 6.5 g/dL (6.5-8.0)
[2023-03-02 17:00] LABS: HCG Quantitative < 2 mIU/mL
[2023-03-02 17:11] LABS: Appearance Urine Clear; Color Urine Yellow; Glucose Urine UA >=1000 mg/dL (Negative); Leukocyte Esterase Urine Trace (Negative); Nitrite Urine Negative (Negative); PH 5.5 (5.0-9.0); Specific Gravity - Urine >= 1.030 (1.005-1.025); UMIC TRIGGER UACC YES; Urine Blood Negative (Negative); Urine Ketones Trace mg/dL (Negative); Urine Protein Negative (Neg-Trace)
[2023-03-02] MEDS: 0.9 % Sodium Chloride 1,000 ML 999 ML IV (17:14)
[2023-03-02 17:20] VITALS: BP 125/76; PULSE 69; RESP 14; O2SAT 98
[2023-03-02] MEDS: iohexoL 350 MG/ML 100 ML INFUS..BTL IV (17:34)
[2023-03-02] MEDS: Ketorolac Tromethamine 30 MG/ML VIAL IVPUSH (17:36)
[2023-03-02 17:57] LABS: Bacteria Urine 1+ (None Seen); Hyaline Casts Urine 0-2 /LPF (0-2); UACC Culture Trigger YES
[2023-03-02 19:51] VITALS: BP 121/82; PULSE 84; RESP 16; TEMP 37.5; O2SAT 98
== END 2023-03-02 20:11 | disposition home or self-care (01) ==
PROVIDERS: Physician Assistant; Emergency Provider Emergency Medicine; PCP Family Medicine
DX: N39.0 Urinary tract infection, site not specified (principal); M54.50 Low back pain, unspecified; Z79.899 Other long term (current) drug therapy
CPT/HCPCS: 36415; 74177; 80053; 81001; 83735; 84702; 85025; 87086; 87147; 96361; 96374; 99284; J1885; Q9967

== ENCOUNTER 2024-01-13 15:00 | Emergency (ER) | payer OTHER, SELFPAY ==
[2024-01-13 15:05] VITALS: BP 127/84; PULSE 97; RESP 18; TEMP 36.8; O2SAT 95; BMI 40.0
--- NOTE | 2024-01-13 15:05 | ED_ITS ---
HPI - General Adult General Chief complaint: Abdominal Pain Stated complaint: kidney infection? Time Seen by Provider: 01/13/24 16:29 Source: patient and RN notes reviewed Mode of arrival: ambulatory Limitations: no limitations History of Present Illness HPI narrative: This is a 23-year-old female, with a history of asthma, type 2 diabetes, who presents emergency department with complaints of ongoing dysuria, foul-smelling urine, and bilateral flank pain. She states that 1 week ago she developed dysuria and foul smelling urine 1 wek ago. Patient states that 2 days ago she went to her primary care physician was diagnosed with a urinary tract infection. She states that initially the urine dipstick was negative however urine cultures were sent and she was told that she had a urinary tract infection. She was prescribed Bactrim DS, which she took 2 doses of. Upon looking at the pill bottle, this was was to be taken twice a day for the next 14 days. She was only taking this once a day. She endorses subjective fevers and chills. Also endorsing some nausea and suprapubic pain. Denies any vaginal discharge or bleeding. Her last menstrual cycle was 1 month ago. She is not sexually active, no concerns for any sexually transmitted infections. Denies any other complaints or concerns at this time. MD complaint: UTI Onset (ago): day(s) Radiation: back Relieving factors: none Exacerbating factors: none Associated symptoms: denies other symptoms Treatments prior to arrival: none Related Data Previous Rx's Medication Instructions Recorded docusate sodium 100 mg capsule 100 mg PO BID #20 caps 11/09/21 (Colace) polyethylene glycol 3350 17 17 g PO BID PRN constipation #238 11/09/21 gram/dose oral powder (Miralax) grams pramoxine 1 % topical foam 1 appl DC BID #15 grams 11/09/21 (Proctofoam) sennosides 8.6 mg tablet (senna) 8.6 mg PO BEDTIME #14 tabs 11/09/21 cyclobenzaprine 10 mg tablet 10 mg PO TID PRN muscle spasm #10 12/17/21 tabs ibuprofen 600 mg tablet 600 mg PO Q8H PRN fever or pain 12/17/21 #20 tabs nitrofurantoin 100 mg PO Q12H 7 days #14 caps 03/02/23 monohydrate/macrocrystals 100 mg capsule (Macrobid) doxycycline hyclate 100 mg capsule 100 mg PO BID 14 days #28 caps 01/13/24 metronidazole 500 mg tablet 500 mg PO BID 14 days #28 tabs 01/13/24 Allergies Allergy/AdvReac Type Severity Reaction Status Date / Time bee pollen [BEE STINGS] Allergy Unknown LEGS SWELL Verified 03/02/23 14:35 UP poppyseed oil [POPPYSEED OIL] Allergy Unknown ITCHY Verified 03/02/23 14:35 THROAT Review of Systems 2 Review of Systems: Yes all other systems are reviewed and are negative Constitutional: Constitutional: Reports as per [facility] Past Medical History Attestation statement: The following information was validated with the patient. Medical History PCOS (polycystic ovarian syndrome) Social History Social History Alcohol intake: current Alcohol intake frequency: holidays/special occasions only Smoked in Last 30 Days: No Use of substances other than those prescribed or required for medical reasons: No Substance Use Type: Marijuana Advance Directives: No Advance Directives Information Provided: No Physical Exam ED Vital Signs: Vital Signs - 24 hr 01/13/24 15:05 01/13/24 19:28 Temperature 98.2 F 97.6 F Pulse Rate 97 90 Respiratory Rate 18 18 Blood Pressure 127/84 117/80 Pulse Oximetry 95 98 Oxygen Delivery Method Room Air Room Air BMI result Body Mass Index 40.0 Const General: cooperative, comfortable and no acute distress Orientation/consciousness: patient oriented x3 Limitations: no limitations [facility] Head: Yes normal to inspection, Yes normocephalic and Yes atraumatic Ears: hearing grossly normal bilaterally General nose exam: Normal external nose present Face and sinus: Yes normal facial exam Mouth: Normal oral and palatal mucosa present, oropharynx normal and moist mucous membranes Throat: Yes posterior oropharynx normal Eyes General: appearance normal, both eyes and all related structures Eyelids: Yes eyelids normal Conjunctivae: conjunctivae normal Sclerae: sclerae normal Pupils: Equal, round and reactive pupils present EOM: EOMs intact bilaterally Neck Neck: Yes normal visual inspection, Yes full ROM and Yes no lymphadenopathy Lymphatic: no lymphadenopathy noted Chest Chest palpation & inspection: normal inspection of the chest Resp Effort & Inspection: normal respiratory effort and able to speak in complete sentences Auscultation: clear to auscultation bilaterally, no crackles, no rales, no rhonchi and no wheezes Cardio Rate: regular rate Rhythm: regular rhythm Heart sounds: S1 normal heart sound present and S2 normal heart sound present GI Other: suprapubic tenderness. No rebound or guarding. Normal active bowel sounds present. Inspection: Yes normal to inspection Other: Pelvic examination performed with solid waste landfill technician present. Normal external genitalia noted, no erythema or edema noted. Cervical OS closed with yellow/green discharge noted in the vaginal vault. Bimanual examination revealing cervical motion tenderness. Speculum Exam - Vagina: normal appearance of the vagina Speculum Exam - Cervix: normal appearance of the cervix Bimanual exam- vagina & uterus: uterine size normal Bimanual Exam- Adnexa, other: normal adnexae Skin General skin exam: no rashes or lesions noted Trauma: no lacerations or abrasions Wounds: no wounds Neuro General: patient oriented x3 and moves all extremities Cranial nerves: Yes Equal, round and reactive pupils present Extrem General: Yes normal to inspection Right upper extremity: normal to inspection Left upper extremity: normal to inspection Right lower extremity: normal to inspection Left lower extremity: normal to inspection Course Course Course Narrative: RME performed by Lula Penaloza PA-C. Patient is a 23 year old assigned female at presenting to the emergency department with abdominal pain after finishing antibiotics for a UTI. Detailed physical exam and review of systems are deferred to the investigative shopper. Labs ordered. Patient placed back in the waiting room pending room availability and results. Medications Administered Discontinued Medications Generic Name Dose Route Start Last Admin Trade Name Kristopherq PRN Reason Stop Dose Admin Ceftriaxone Sodium 500 mg/ 0 mg 01/13/24 19:28 01/13/24 19:56 Lidocaine HCl 1 ml IM 01/13/24 19:29 500 kit ONCE ONE Administration Doxycycline Monohydrate 100 mg 01/13/24 19:28 01/13/24 19:55 Doxycycline Monohydrate 100 Mg Capsule PO 01/13/24 19:29 100 mg ONCE ONE Administration Metronidazole 500 mg 01/13/24 19:28 01/13/24 19:55 Metronidazole 500 Mg Tablet PO 01/13/24 19:29 500 mg ONCE ONE Administration Medical Decision Making Medical Decision Making [facility] Narrative: This is a 23-year-old female presenting to the emergency department for evaluation of suprapubic pain, bilateral flank pain, dysuria, urinary frequency and urgency x 1 week. Patient was seen by her primary care physician 2 days ago and was told that she had a urinary tract infection. On arrival, patient nontoxic appearing, vital signs within normal limits. Patient has positive CVA tenderness bilaterally. She also has suprapubic tenderness. Patient was discharged on Bactrim DS 2 days ago which he has not been compliant with as she misread the instructions and has only been taking it once a day. She states that she has had 2 doses so far. She reports that her symptoms are not improving. Discussed case with my attending physician, Dr. Milner. Given suprapubic tenderness on examination with urine revealing no profound UTI, despite two doses of ABX, concern for PID. Pelvic examination revealing +cervical motion tenderness, findings consistent with PID. Pt treated with ceftriaxone and d/c with doxycycline and flagyl. She will f/u with OBGYN and PCP. Given return precautions. She is stable for d/c. Differential Diagnosis Differential Diagnoses: The differential diagnosis associated with the presentation includes Urinary tract infection, pyelonephritis, acute cystitis, nephrolithiasis Admission/Observation Consideration of admission/observation: Escalation of care including admission/observation considered Lab Data MDM Lab Attestation statement: I reviewed the patient's lab results. Patient has no leukocytosis, H&H within normal limits, no evidence of anemia. Hyperglycemic at 223. Slight elevation liver transaminases ALT, which she has a history of, improved since baseline, she is not . UA with >1000 glucose, 1+ bacteria, with many squamous cells. Does not appear to be infected, rather contaminated. 01/13/24 15:20 01/13/24 15:20 Labs: Lab Results 01/13/24 01/13/24 Range/Units 15:20 17:26 WBC 8.8 (4.8-10.8) X10*3/uL RBC 5.20 (4.20-5.50) X10*6/uL Hgb 15.6 (12.0-16.0) g/dl Hct 44.1 (37.0-47.0) % MCV 84.8 (80.0-98.0) fL MCH 30.0 (27.0-33.0) pg MCHC 35.4 H (31.0-35.0) g/dl RDW 12.4 (11.0-16.0) % Plt Count 196 (160-400) X10*3/uL MPV 9.6 (9.4-12.3) fL Immature Gran % (Auto) 0.3 (0.0-0.4) % Neut % (Auto) 53.2 (45-73) % Lymph % (Auto) 34.7 (20-40) % [place] % (Auto) 7.9 (2-11) % Eos % (Auto) 3.3 (0-4) % Baso % (Auto) 0.6 (0-2) % Lymph # (Auto) 3.1 (1.2-4.9) X10*3/uL [place] # (Auto) 0.7 (0.1-1.2) X10*3/uL Eos # (Auto) 0.3 (0.0-0.4) X10*3/uL Baso # (Auto) 0.1 (0.0-0.2) X10*3/uL Abs Immat Gran (auto) 0.03 (0.00-0.03) X10*3/uL Absolute Neuts (auto) 4.7 (2.0-8.3) x10*3/uL Absolute Nucleated RBC 0.000 (0.0-0.012) X10*3/uL Nucleated RBC % (auto) 0.0 (0.0-0.2) /100WBC Sodium 137 (135-145) mmol/L Potassium 3.9 (3.3-5.1) mmol/L Chloride 107 (96-108) mmol/L Carbon Dioxide 25 (22-29) mmol/L Anion Gap 9 L (12-20) BUN 9 (9-16) mg/dL Creatinine 0.80 (0.5-1.4) mg/dL Estim Creat Clear Calc 127.4 Estimated GFR > 60 Random Glucose 223 H (60-115) mg/dL Calcium 9.3 D (8.4-10.2) mg/dL Magnesium 1.8 (1.6-2.6) mg/dL Total Bilirubin 0.5 (0.0-1.0) mg/dL AST 29 (5-31) U/L ALT 79 H (0-31) U/L Alkaline Phosphatase 62 (39-117) U/L Total Protein 7.2 (6.5-8.0) g/dL Albumin 4.1 (3.5-5.0) g/dL Beta HCG, Quant < 2 mIU/mL Urine Color Yellow Urine Appearance Clear Urine pH 5.5 (5.0-9.0) Ur Specific [place] >= 1.030 H (1.005-1.025) Urine Protein Negative (Neg-Trace) mg/dL Urine Glucose (UA) >=1000 H (Negative) mg/dL Urine Ketones Negative (Negative) mg/dL Urine Blood Negative (Negative) Urine Nitrite Negative (Negative) Ur Leukocyte Esterase Negative (Negative) Urine RBC 0-2 (0-2) /HPF Urine WBC 0-5 (0-5) /HPF Ur Squamous Epith Cells 6-10 (0-2) /HPF Urine Bacteria 1+ (None Seen) Hyaline Casts 0-2 (0-2) /LPF Chronic Conditions Patient?s care impacted by: Diabetes Discharge Plan Discharge Clinical Impression: Acute pelvic inflammatory disease (PID) Patient Disposition: Home, Self-Care Instructions: Pelvic Inflammatory Disease (ED) Additional Instructions: Your seen in the emergency department due to ongoing abdominal pain. Your exam is consistent with something called pelvic inflammatory disease. You received a dose of ceftriaxone, which is a type of antibiotic. I am also prescribing you doxycycline, this is an antibiotic. Please take this twice a day for the next 14 days. I am also prescribing metronidazole, which is to be taken twice a day for the next 14 days as well. You received your 1st dose in the emergency department of these medications. Please follow-up with your OBGYN, call on Tuesday to make an appointment. Please also follow-up with your primary care physician regarding this visit. Your urine does not appear to be infected today, we will call you with any abnormal results. If any new or worsening symptoms occur including but not limited to worsening pain fevers, chills, please return for re-evaluation. Prescriptions: New doxycycline hyclate 100 mg capsule 100 mg PO BID 14 Days Qty: 28 0RF metronidazole 500 mg tablet 500 mg PO BID 14 Days Qty: 28 0RF No Action sennosides [senna] 8.6 mg tablet 8.6 mg PO BEDTIME Qty: 14 0RF docusate sodium [Colace] 100 mg capsule 100 mg PO BID Qty: 20 0RF polyethylene glycol 3350 [Miralax] 17 gram/dose powder 17 g PO BID PRN (Reason: constipation) Qty: 238 0RF pramoxine [Proctofoam] 1 % foam 1 appl DC BID Qty: 15 0RF cyclobenzaprine 10 mg tablet 10 mg PO TID PRN (Reason: muscle spasm) Qty: 10 0RF ibuprofen 600 mg tablet 600 mg PO Q8H PRN (Reason: fever or pain) Qty: 20 0RF nitrofurantoin monohyd/m-cryst [Macrobid] 100 mg capsule 100 mg PO Q12H 7 Days Qty: 14 0RF Rx Instructions: must administer with a meal/food Interventions: ED Discharge Assessment Last Done: 01/13/24 20:05 Discharge Date/Time: 01/13/24 19:55
[2024-01-13 15:24] LABS: MANUAL DIFF FLAG NO
[2024-01-13 15:26] LABS: Basophils Absolute Auto 0.1 X10*3/uL (0.0-0.2); Basophils Percent Auto 0.6 % (0-2); Eosinophils Absolute Auto 0.3 X10*3/uL (0.0-0.4); Eosinophils Percent Auto 3.3 % (0-4); Hematocrit 44.1 % (37.0-47.0); Hemoglobin 15.6 g/dl (12.0-16.0); Imm Gran Abs Auto 0.03 X10*3/uL (0.00-0.03); Imm Gran Pct Auto 0.3 % (0.0-0.4); Lymphocytes Absolute Auto 3.1 X10*3/uL (1.2-4.9); Lymphocytes Percent Auto 34.7 % (20-40); Mean Corpuscular HGB Conc 35.4 g/dl (31.0-35.0); Mean Corpuscular Volume 84.8 fL (80.0-98.0); Mean Platelet Volume 9.6 fL (9.4-12.3); Monocytes Absolute Auto 0.7 X10*3/uL (0.1-1.2); Monocytes Percent Auto 7.9 % (2-11); Neutrophils Absolute Auto 4.7 x10*3/uL (2.0-8.3); Neutrophils Percent Auto 53.2 % (45-73); Platelet Count 196 X10*3/uL (160-400); Red Cell Distribution Width 12.4 % (11.0-16.0); White Blood Count 8.8 X10*3/uL (4.8-10.8)
[2024-01-13 15:39] LABS: Alanine Aminotransferase 79 U/L (0-31); Albumin Level 4.1 g/dL (3.5-5.0); Alkaline Phosphatase 62 U/L (39-117); Anion Gap 9 (12-20); Aspartate Amino Transferase 29 U/L (5-31); Bilirubin Total 0.5 mg/dL (0.0-1.0); Blood Urea Nitrogen 9 mg/dL (9-16); Calcium 9.3 mg/dL (8.4-10.2); Carbon Dioxide 25 mmol/L (22-29); Chloride 107 mmol/L (96-108); Creatinine Clr Calc Pharmacy 127.4; Estimated Glomerular Filt Rate > 60; Glucose Random 223 mg/dL (60-115); Magnesium 1.8 mg/dL (1.6-2.6); Potassium 3.9 mmol/L (3.3-5.1); Sodium 137 mmol/L (135-145); Total Protein 7.2 g/dL (6.5-8.0)
[2024-01-13 15:50] LABS: HCG Quantitative < 2 mIU/mL
[2024-01-13 17:46] LABS: Appearance Urine Clear; Color Urine Yellow; Glucose Urine UA >=1000 mg/dL (Negative); Leukocyte Esterase Urine Negative (Negative); Nitrite Urine Negative (Negative); PH 5.5 (5.0-9.0); Specific Gravity - Urine >= 1.030 (1.005-1.025); UMIC TRIGGER UACC YES; Urine Blood Negative (Negative); Urine Protein Negative (Neg-Trace)
[2024-01-13 18:00] LABS: Bacteria Urine 1+ (None Seen); Hyaline Casts Urine 0-2 /LPF (0-2); RBC Urine 0-2 /HPF (0-2); Urine Ketones Negative (Negative); WBC Urine 0-5 /HPF (0-5)
[2024-01-13 19:28] VITALS: BP 117/80; PULSE 90; RESP 18; TEMP 36.4; O2SAT 98
[2024-01-13] MEDS: Doxycycline Monohydrate 100 MG CAPSULE PO (19:55)
[2024-01-13] MEDS: metroNIDAZOLE 500 MG TABLET PO (19:55)
[2024-01-13] MEDS: cefTRIAXone sodium 500 MG, Lidocaine HCl 1 % MPF 1 ML IM (19:56)
[2024-01-14 09:45] LABS: CT PCR NOT DETECTED (Not Detect.); NG PCR NOT DETECTED (Not Detect.)
[2024-01-14 12:06] LABS: BV Int Neg Control Negative (Negative); BV Int Pos Control Positive (Positive)
== END 2024-01-13 19:55 | disposition home or self-care (01) ==
PROVIDERS: Physician Assistant Medical; Emergency Provider Emergency Medicine Emergency Medical Services; PCP Family Medicine
DX: N73.9 Female pelvic inflammatory disease, unspecified (principal); E11.9 Type 2 diabetes mellitus without complications
CPT/HCPCS: 0353U; 36415; 80053; 81001; 83735; 84702; 85025; 87480; 87510; 87660; 96372; 99284; J0696

== ENCOUNTER 2024-09-02 23:24 | Emergency (ER) | payer MEDICAID, SELFPAY ==
[2024-09-02 23:29] VITALS: BP 133/85; PULSE 117; RESP 20; TEMP 37.4; O2SAT 96
[2024-09-02 23:32] VITALS: BMI 45.0
[2024-09-02 23:56] LABS: MANUAL DIFF FLAG NO
--- NOTE | 2024-09-02 23:56 | ED_ITS ---
HPI - Nausea/Vomiting/Diarrhea General Chief complaint: Nausea/Vomiting/Diarrhea Stated complaint: Vomiting Time Seen by Provider: 09/02/24 23:37 Source: patient Mode of arrival: ambulatory Limitations: no limitations History of Present Illness ED Provider: RASHEEDA SETH Narrative: 24 yo female with PMH of DM on trulicity and metformin here with c/o eating ham that was undercooked at restaurant a very short time later patient developed abdominal cramps, diarrhea, nausea and vomiting. She vomited so much at one point she noted dark blood in it - she is not on thinners. She denies travel or antibiotic use. She notes she has had low grade subjective fevers as well. No sick contacts. MD elicited complaint: nausea, vomiting, diarrhea and abdominal pain Onset (ago): day(s) (last night) Description of vomiting: watery, bilious and coffee grounds Description of diarrhea: watery Associated nausea: Yes Associated abdominal pain: Yes Location of pain: diffuse Radiation: diffuse Pain consistency: intermittent Severity: moderate Quality: cramping Exacerbating factors: eating Context: possible food poisoning Associated symptoms: fever/chills, loss of appetite, malaise, nausea/vomiting and weakness Related Data Previous Rx's ?Medication ?Instructions ?Recorded docusate sodium 100 mg capsule 100 mg PO BID #20 caps 11/09/21 (Colace) polyethylene glycol 3350 17 17 g PO BID PRN constipation #238 11/09/21 gram/dose oral powder (Miralax) grams pramoxine 1 % topical foam 1 appl ND BID #15 grams 11/09/21 (Proctofoam) sennosides 8.6 mg tablet (senna) 8.6 mg PO BEDTIME #14 tabs 11/09/21 cyclobenzaprine 10 mg tablet 10 mg PO TID PRN muscle spasm #10 12/17/21 tabs ibuprofen 600 mg tablet 600 mg PO Q8H PRN fever or pain 12/17/21 #20 tabs nitrofurantoin 100 mg PO Q12H 7 days #14 caps 03/02/23 monohydrate/macrocrystals 100 mg capsule (Macrobid) doxycycline hyclate 100 mg capsule 100 mg PO BID 14 days #28 caps 01/13/24 metronidazole 500 mg tablet 500 mg PO BID 14 days #28 tabs 01/13/24 nitrofurantoin 100 mg PO BID 5 days #10 caps 09/03/24 monohydrate/macrocrystals 100 mg capsule (Macrobid) ondansetron 4 mg disintegrating 4 mg PO Q8H PRN nausea and 09/03/24 tablet vomiting #20 tabs Allergies Allergy/AdvReac Type Severity Reaction Status Date / Time bee pollen [BEE STINGS] Allergy Unknown LEGS SWELL Verified 09/02/24 23:36 UP poppyseed oil [POPPYSEED OIL] Allergy Unknown ITCHY Verified 09/02/24 23:36 THROAT Review of Systems 2 Review of Systems: Constitutional : pos Fever, pos Chills ENT/Mouth : No sore throat, No Rhinorrhea Eyes: No Swelling, No Redness Cardiovascular : No Chest Pain, No SOB, NoEdema Respiratory : No Cough, No Sputum, No Wheezing Gastrointestinal : Positive Nausea, Positive Vomiting, positive Diarrhea, positive abdominal Pain, No Hematochezia, No Melena Genitourinary : No Dysuria, No Urinary Frequency, No Hematuria, No Urgency Musculoskeletal : No joint pain, No Myalgias, No Joint Swelling Skin : No Skin Lesions, No rash Neuro : No Weakness, No Numbness, No Dizziness, No Headache Psych : No Anxiety/Panic, No Depression All other systems reviewed and are negative. Gastrointestinal: Gastrointestinal: Reports nausea PMFSH Past Medical History Attestation statement: The following information was validated with the patient. Source: old records reviewed Medical History Diabetes PCOS (polycystic ovarian syndrome) Social History Social History Alcohol intake: current Alcohol intake frequency: holidays/special occasions only Smoked in Last 30 Days: No Use of substances other than those prescribed or required for medical reasons: Yes Substance Use Type: Marijuana Substance Use Frequency: Occasionally Last Used Substance: Weeks (ago) Advance Directives: No Advance Directives Information Provided: Yes Patient : No Physical Exam 2 Vital Signs: Vital Signs: Last Vital Signs Temp 98.8 F 09/03/24 01:44 Pulse 96 09/03/24 01:44 Resp 16 09/03/24 01:44 BP 105/66 09/03/24 01:44 Pulse Ox 95 09/03/24 01:44 O2 Del Method Room Air 09/03/24 01:44 BMI result Body Mass Index 45.0 Appearance: Alert. Oriented X3. No acute distress. Eyes: Pupils equal, round and reactive to light. ENT: Pharynx mildly dry MM Neck: Normal inspection. Neck supple. CVS: tachycardic heart rate and rhythm. Pulses normal. Respiratory: No respiratory distress. Breath sounds normal. Abdomen: Soft and very minimal mild lower abdominal ttp no rebound or guarding Skin: Skin warm and dry. Normal skin color. Extremities: No lower extremity edema. Neuro: Oriented X 3. No motor deficit. No sensory deficit. Course Course Course Narrative: improved stable for DC Reevaluation(s) Reevaluation #1: given trace bacteria / WBC will start on macrobid Medications Administered Discontinued Medications Generic Name Dose Route Start Last Admin Trade Name Freq PRN Reason Stop Dose Admin Famotidine 20 mg 09/02/24 23:37 09/03/24 00:19 Famotidine/Pf 20 Mg/2 Ml Vial IVPUSH 09/02/24 23:38 20 mg ONCE ONE Administration Acetaminophen 1,000 mg in 100 mls @ 400 mls/hr 09/02/24 23:46 09/03/24 00:20 Ofirmev IV 09/03/24 00:00 Infused ONCE ONE Infusion Lactated Ringer's 1,000 mls @ 999 mls/hr 09/02/24 23:47 09/03/24 01:50 Lr IV 09/03/24 00:47 Infused .Q1H1M ONE Infusion Ondansetron HCl 4 mg 09/02/24 23:37 09/02/24 23:58 Ondansetron Hcl 4 Mg/2 Ml Vial IVPUSH 09/02/24 23:38 4 mg ONCE ONE Administration Medical Decision Making Medical Decision Making [facility] Narrative: 24 yo female with PMH of DM on trulicity and metformin here with c/o n/v/d and abdominal cramps did have episode of blood in emesis suspect yoni alonzo tear - she is not toxic, has no localized ttp suspect food toxicity no lower GIB symptoms - at this time will obtain basic labs, hydrate, IV tylenol and zofran/pepcid for pain. Differential Diagnosis Differential Diagnoses: The differential diagnosis associated with the presentation includes dehydration, food toxicity, colitis Admission/Observation Consideration of admission/observation: Escalation of care including admission/observation considered feeling much better tolerating PO stable for DC Lab Data MDM Lab Attestation statement: I reviewed the patient's lab results. 09/02/24 23:52 09/02/24 23:52 Labs: Lab Results 09/02/24 09/03/24 Range/Units 23:52 01:44 WBC 10.2 (4.8-10.8) X10*3/uL RBC 5.14 (4.20-5.50) X10*6/uL Hgb 15.4 (12.0-16.0) g/dl Hct 43.4 (37.0-47.0) % MCV 84.4 (80.0-98.0) fL MCH 30.0 (27.0-33.0) pg MCHC 35.5 H (31.0-35.0) g/dl RDW 12.1 (11.0-16.0) % Plt Count 239 (160-400) X10*3/uL MPV 9.3 L (9.4-12.3) fL Immature Gran % (Auto) 0.2 (0.0-0.4) % Neut % (Auto) 63.6 (45-73) % Lymph % (Auto) 27.1 (20-40) % [place] % (Auto) 6.3 (2-11) % Eos % (Auto) 2.3 (0-4) % Baso % (Auto) 0.5 (0-2) % Lymph # (Auto) 2.8 (1.2-4.9) X10*3/uL [place] # (Auto) 0.6 (0.1-1.2) X10*3/uL Eos # (Auto) 0.2 (0.0-0.4) X10*3/uL Baso # (Auto) 0.1 (0.0-0.2) X10*3/uL Abs Immat Gran (auto) 0.02 (0.00-0.03) X10*3/uL Absolute Neuts (auto) 6.5 (2.0-8.3) x10*3/uL Absolute Nucleated RBC 0.000 (0.0-0.012) X10*3/uL Nucleated RBC % (auto) 0.0 (0.0-0.2) /100WBC Sodium 137 (135-145) mmol/L Potassium 3.5 (3.3-5.1) mmol/L Chloride 107 (96-108) mmol/L Carbon Dioxide 21 L (22-29) mmol/L Anion Gap 13 (12-20) BUN 8 L (9-16) mg/dL Creatinine 0.74 (0.5-1.4) mg/dL Estim Creat Clear Calc 146.2 Estimated GFR > 60 Random Glucose 198 H (60-115) mg/dL Calcium 8.7 D (8.4-10.2) mg/dL Magnesium 1.8 (1.6-2.6) mg/dL Total Bilirubin 0.6 (0.0-1.0) mg/dL Direct Bilirubin 0.2 (0.0-0.5) mg/dL AST 21 (5-31) U/L ALT 46 H (0-31) U/L Alkaline Phosphatase 51 (39-117) U/L Total Protein 7.0 (6.5-8.0) g/dL Albumin 4.1 (3.5-5.0) g/dL Lipase 22 (8-78) U/L Beta HCG, Quant < 2 mIU/mL Urine Color Yellow Urine Appearance Clear Urine pH 6.0 (5.0-9.0) Ur Specific [place] 1.010 (1.005-1.025) Urine Protein Negative (Neg-Trace) mg/dL Urine Glucose (UA) 500 H (Negative) mg/dL Urine Ketones Trace (Negative) mg/dL Urine Blood Small (1+) H (Negative) Urine Nitrite Negative (Negative) Ur Leukocyte Esterase Trace H (Negative) Urine RBC 3-5 H (0-2) /HPF Urine WBC 6-10 H (0-5) /HPF Ur Squamous Epith Cells 6-10 (0-2) /HPF Urine Bacteria Trace (None Seen) Hyaline Casts 0-2 (0-2) /LPF Independent Historian Clinical information obtained from an independent historian. History obtained from or confirmed by: Parent External Record Review External record reviewed: Outpatient record Prescription Management I considered prescription management with: Other Discharge Plan Discharge Clinical Impression: Food poisoning Patient Disposition: Home, Self-Care Instructions: Acute Diarrhea (ED), Food Poisoning (ED) Additional Instructions: bland diet for 48 hours then advance slowly add dairy on later. return for any worsening symptoms or concerns such as fevers, severe pain, bloody stools or any other concerns stay hydrated given your diabetes history - you have trace bacteria and some white blood cells a urine culture was sent off will start on macrobid for possible infection Prescriptions: New ondansetron 4 mg tablet,disintegrating 4 mg PO Q8H PRN (Reason: nausea and vomiting) Qty: 20 0RF nitrofurantoin monohyd/m-cryst [Macrobid] 100 mg capsule 100 mg PO BID 5 Days Qty: 10 0RF Rx Instructions: must administer with a meal/food No Action sennosides [senna] 8.6 mg tablet 8.6 mg PO BEDTIME Qty: 14 0RF docusate sodium [Colace] 100 mg capsule 100 mg PO BID Qty: 20 0RF polyethylene glycol 3350 [Miralax] 17 gram/dose powder 17 g PO BID PRN (Reason: constipation) Qty: 238 0RF pramoxine [Proctofoam] 1 % foam 1 appl ND BID Qty: 15 0RF cyclobenzaprine 10 mg tablet 10 mg PO TID PRN (Reason: muscle spasm) Qty: 10 0RF ibuprofen 600 mg tablet 600 mg PO Q8H PRN (Reason: fever or pain) Qty: 20 0RF nitrofurantoin monohyd/m-cryst [Macrobid] 100 mg capsule 100 mg PO Q12H 7 Days Qty: 14 0RF Rx Instructions: must administer with a meal/food doxycycline hyclate 100 mg capsule 100 mg PO BID 14 Days Qty: 28 0RF metronidazole 500 mg tablet 500 mg PO BID 14 Days Qty: 28 0RF Stand Alone Forms: Work/School Release Print Language: Georgian
[2024-09-02] MEDS: Lactated Ringers 1,000 ML 999 ML IV (23:57)
[2024-09-02 23:58] LABS: Basophils Absolute Auto 0.1 X10*3/uL (0.0-0.2); Basophils Percent Auto 0.5 % (0-2); Eosinophils Absolute Auto 0.2 X10*3/uL (0.0-0.4); Eosinophils Percent Auto 2.3 % (0-4); Hematocrit 43.4 % (37.0-47.0); Hemoglobin 15.4 g/dl (12.0-16.0); Imm Gran Abs Auto 0.02 X10*3/uL (0.00-0.03); Imm Gran Pct Auto 0.2 % (0.0-0.4); Lymphocytes Absolute Auto 2.8 X10*3/uL (1.2-4.9); Lymphocytes Percent Auto 27.1 % (20-40); Mean Corpuscular HGB Conc 35.5 g/dl (31.0-35.0); Mean Corpuscular Volume 84.4 fL (80.0-98.0); Mean Platelet Volume 9.3 fL (9.4-12.3); Monocytes Absolute Auto 0.6 X10*3/uL (0.1-1.2); Monocytes Percent Auto 6.3 % (2-11); Neutrophils Absolute Auto 6.5 x10*3/uL (2.0-8.3); Neutrophils Percent Auto 63.6 % (45-73); Platelet Count 239 X10*3/uL (160-400); Red Blood Count 5.14 X10*6/uL (4.20-5.50); Red Cell Distribution Width 12.1 % (11.0-16.0); White Blood Count 10.2 X10*3/uL (4.8-10.8)
[2024-09-02] MEDS: ondansetron HCL 4 MG/2 ML VIAL IVPUSH (23:58)
[2024-09-02] MEDS: Acetaminophen 1,000 MG/100 ML PIGGYBACK 400 MG IV (23:58)
[2024-09-03] MEDS: Famotidine/PF 20 MG/2 ML VIAL IVPUSH (00:19)
[2024-09-03 00:21] LABS: HCG Quantitative < 2 mIU/mL
[2024-09-03 00:24] LABS: Alanine Aminotransferase 46 U/L (0-31); Albumin Level 4.1 g/dL (3.5-5.0); Alkaline Phosphatase 51 U/L (39-117); Anion Gap 13 (12-20); Aspartate Amino Transferase 21 U/L (5-31); Bilirubin Direct 0.2 mg/dL (0.0-0.5); Bilirubin Total 0.6 mg/dL (0.0-1.0); Blood Urea Nitrogen 8 mg/dL (9-16); Calcium 8.7 mg/dL (8.4-10.2); Carbon Dioxide 21 mmol/L (22-29); Chloride 107 mmol/L (96-108); Creatinine Clr Calc Pharmacy 146.2; Estimated Glomerular Filt Rate > 60; Glucose Random 198 mg/dL (60-115); Lipase 22 U/L (8-78); Magnesium 1.8 mg/dL (1.6-2.6); Potassium 3.5 mmol/L (3.3-5.1); Sodium 137 mmol/L (135-145)
[2024-09-03 01:44] VITALS: BP 105/66; PULSE 96; RESP 16; TEMP 37.1; O2SAT 95
[2024-09-03 01:53] LABS: Appearance Urine Clear; Color Urine Yellow; Glucose Urine UA 500 mg/dL (Negative); Leukocyte Esterase Urine Trace (Negative); Nitrite Urine Negative (Negative); UMIC TRIGGER UACC YES; Urine Blood Small (1+) (Negative); Urine Ketones Trace mg/dL (Negative); Urine Protein Negative (Neg-Trace)
[2024-09-03 02:02] LABS: Bacteria Urine Trace (None Seen); Hyaline Casts Urine 0-2 /LPF (0-2); UACC Culture Trigger YES
[2024-09-03 02:26] VITALS: BP 105/66; PULSE 96; RESP 16; TEMP 37.1; O2SAT 95
== END 2024-09-03 02:27 | disposition home or self-care (01) ==
PROVIDERS: Emergency Provider Emergency Medicine; PCP Family Medicine
DX: R11.2 Nausea with vomiting, unspecified (principal); A05.9 Bacterial foodborne intoxication, unspecified; R50.9 Fever, unspecified; R25.2 Cramp and spasm; R53.81 Other malaise; R10.2 Pelvic and perineal pain; Z79.899 Other long term (current) drug therapy
CPT/HCPCS: 36415; 80048; 80076; 81001; 83690; 83735; 84702; 85025; 87086; 96365; 96366; 96375; 99284; J0131; J2405; J7120

== ENCOUNTER 2025-04-10 12:16 | Outpatient (AMB) | payer OTHER, SELFPAY ==
--- NOTE | 2025-04-10 12:19 | MHC.PC.OV ---
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 Note: New patient to establish care Multi Line Claims Adjuster Required: No Allergies bee pollen [BEE STINGS] Allergy (Unknown, Verified 04/10/25 13:01) LEGS SWELL UP poppyseed oil [POPPYSEED OIL] Allergy (Unknown, Verified 04/10/25 13:01) ITCHY THROAT Medication List - Last Reconciled 04/10/25 by Suyapa Rene, [employer]STRUCTION [employer] MANAGER- albuterol sulfate 90 mcg/actuation 2 puffs inhalation Q6H PRN dulaglutide (Trulicity) 4.5 mg subcut QWEEK epinephrine (EpiPen 2-Nhan) 0.3 mg (0.3 mL) IM Q10M PRN famotidine 40 mg PO BID lisdexamfetamine (Vyvanse) 10 mg PO DAILY polyethylene glycol 3350 (Miralax) 17 grams PO BID PRN sertraline 100 mg PO DAILY Tobacco use date assessed: 04/10/25 Dental Screening Dental Screen Date: 04/10/25 Did you have a dental visit in the last 12 months?: Yes Did you have a dental problem in the last 6 months where you did not have access to dental care?: No Was dental information given to patient?: Patient has dentist HPI HPI Comments History of Present Illness Details 25-year-old female with PCOS, diabetes 2, obesity, elevated LFTs, Asthma , chronic GERD, Mixed IBS,Bee sting allergy Health Maintenance: PAP reports normal in the past, would like [facility] PROVIDER RELATIONS SPECIALIST referral Tdap 2018 Diabetic Eye Exam:[facility], 2023, needs new referral Specialists: Counselor, Prescriber WHIT [place] PROVIDER RELATIONS SPECIALIST at [facility] - The patient is a 25-year-old female presenting to [facility] care for a CPE - Type 2 Diabetes Mellitus: A1c 9.3%. on Trulicity only. Was on metformin before but stopped as had GI upset wihth 2000mg dose - Obesity: BMI 39.7. Interseted in bariatrics referral - Chronic GERD: On famotidine 40 mg twice daily. ACtive w/ GI at [place]; has Mixed IBS and fatty liver - PCOS not on meds or treatment, saw endo in the past; would like to see endo again for this and DM - Asthma exercise and illness induced, needs refill on albuterol ADHD/JOEY/MDD on meds, active w/ outside prescriber; has a counselor. Denies si.hi Is a kraft, has laryngitis often, voice changes, hx of recurrent strep, wants to see ENT Physical Exam General: Well developed, well nourished, in no acute distress. Appears stated age. Head: Normocephalic, atraumatic. Eyes: Pupils are equal, round and reactive to light and accommodation. Conjunctivae are clear. Vision grossly normal. Ears: TMs clear AU, EACS WNL Nose: Patent, without discharge. Neck: Supple, no adenopathy or thyromegaly. Breast: Edu on SBE Lungs: Clear to auscultation bilaterally. No rales, rhonchi or wheeze noted. Good air flow in all jones. Heart: Regular rate and rhythm. No murmurs, click, rubs or gallops are noted. Abdomen: Bowel sounds present in all quadrants. The abdomen is soft, nontender, with no masses or organomegaly noted. No hernias are noted. : Deferred. Reviewed MACKENZIE & recommendations for routine PROVIDER RELATIONS SPECIALIST Pulses: Peripheral pulses are equal and palpable bilaterally. Extremities: No clubbing, cyanosis nor edema is noted. Neurologic: Gait and station normal. Cranial Nerves 2-12 intact. Motor strength grossly symmetrical and intact. No sensory loss. Balance normal. Skin: No rashes, ulcers, or lesions noted. Turgor is good. Skin color is good. Hair and nails are without abnormalities. Psych: Normal eye contact, affect and mood appropriate, and normal interactions. Patient is alert and appropriate to context. Results - Labs: A1c 9.3%. Discussion Notes During the visit, we discussed the management of the patient's Type 2 Diabetes Mellitus, taking into account her current A1c level of 9.3%, which indicates suboptimal glycemic control. Options for optimizing diabetes management were explored, with emphasis on lifestyle modifications and potential medication adjustments if needed. The importance of achieving a healthier BMI was highlighted, with recommendations to integrate dietary modifications and increased physical activity as part of the management strategy for obesity. We talked about the ongoing management of GERD, with continued use of famotidine and consideration of dietary factors that may exacerbate symptoms. Follow-up care strategies were discussed, with patients encouraged to adhere to lifestyle changes and to revisit for re-evaluation in the subsequent weeks. Assessment and Plan 1. Type 2 Diabetes Mellitus - A1c elevated at 9.3%. Reinforce diet and activity adjustments. - Endo referral, cont trulicity, start metformin 750mg Qd Dm eye referral to [facility] start lachydrin to [facility] L foot 2. Obesity - BMI 39.7. Advise weight reduction strategies including diet and exercise. Trulicity, [place] [facility] 3. Chronic GERD - Continue famotidine. Dietary modifications recommended. cont care w/ GI Asthma prn barbara cont Adhd - cont meds and care w/ prescriber and counselor Laryngitis refer to ENT Refer to [facility] Screening labs RTO 1 year CPE sooner PRN Consent Patient was informed and verbally consented to the use of an ambient scribe for clinic note documentation during this visit. An additional 30 minutes was spent addressing the problem(s) noted at todays visit. This includes time spent before the visit reviewing the chart, time spent during the visit, and time spent after the visit on documentation reviewing laboratory results, diagnostic imaging, medications, performing a medically necessary evaluation, counseling on diagnoses, care coordination, ordering appropriate tests, ordering appropriate medications, review of tests performed by other providers, reporting test results with the patient, communication with other healthcare providers. [facility] Medical History (Updated 04/10/25 @ 17:44 by Suyapa Rene, [facility]) Anxiety and depression Asthma Diabetes Fatty liver PCOS (polycystic ovarian syndrome) Surgical History (Updated 04/10/25 @ 12:50 by Denis Roche MA) H/O endoscopy (~01/2025) Hx of colonoscopy (~01/2025) Family History (Updated 04/10/25 @ 12:48 by Denis Roche MA) Father Substance abuse Mother Asthma Diabetes Maternal Grandmother Asthma Breast cancer Social History (Updated 04/10/25 @ 12:47 by Denis Roche MA) Household Members: Family Both parents involved: No Caregiver staying overnight: No Housing: House Are you a primary personal care aid to a significant other at home: No Do you presently have visiting nurse or other home services: No 75 years or older and lives alone: No Alcohol intake: current Alcohol intake frequency: holidays/special occasions only Patient Tobacco Use Status: Never used Tobacco e-Cigarette/Vaping Use: Never Used Second Hand Smoke Exposure: No Substance Use Type: Marijuana Current occupational status: employed 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 1. Little interest or pleasure in doing things: several days 2. Feeling down, depressed, or hopeless: several days 3. Trouble falling or staying asleep, or sleeping too much: more than half the days 4. Feeling tired or having little energy: more than half the days 5. Poor appetite or overeating: nearly every day 6. Feeling bad about yourself - or that you are a failure or have let yourself or your family down: several days 7. Trouble concentrating on things, such as reading the newspaper or watching television: several days 8. Moving or speaking so slowly that other people could have noticed. Or the opposite - being so fidgety or restless that you have been moving around a lot more than usual: not at all 9. Thoughts that you would be better off or of hurting yourself in some way: not at all Total score: 11 Depression Screening Interpretation: Positive Depression Screening Follow-up: Existing condition and In treatment Depression Screening Done: Yes 35604 - PHQ-9 Billing: Yes Source: Developed by Drs. Venancio Galan, Sharona Mack, Franklyn Beauchamp and colleagues, with an educational tom from [employer]. Thrive Questionnaire Date Thrive assessed: 04/10/25 I am a: Patient What is your living situation today?: I have a steady place to live Within the past 12 months, did the food you bought not last and you didn't have the money to get more?: Never true Within the past 12 months, did you worry whether your food would run out before you got money to buy more?: Never true Do you have trouble paying for medicines?: I choose not to answer this question Do you have trouble getting transportation to medical appointments?: No Do you have trouble paying your heating and electricity bill?: No Do you have trouble taking care of your child, family member or friend?: No Do you have trouble with day-to-day activities such as bathing, preparing meals, shopping, managing finances, etc.?: No Are you currently unemployed and looking for a job?: No Are you interested in more education?: No Please select the resources that you would like help with: None Currently or been in a relationship where the following occur: No concerns reported THRIVE Score: 0 AUDIT C Alcohol Use Questionnaire (AUDIT-C) 1. How often do you have a drink containing alcohol?: Monthly or less 2. How many drinks containing alcohol do you have on a typical day when you are drinking?: 3 or 4 3. How often do you have six or more drinks on one occasion?: Never Total Score: 2 Score Reviewed/Action Taken: Yes JOEY-7 AMB Questionnaire JOEY-7 Date JOEY - 7 assessed: 04/10/25 Feeling nervous, anxious, or on edge: 1 = Several days Not being able to stop or control worryin = More than half the days Worrying too much about different things: 2 = More than half the days Trouble relaxin = More than half the days Being so restless that it is hard to sit still: 1 = Several days Becoming easily annoyed or irritable: 2 = More than half the days Feeling afraid as if something awful might happen: 0 = Not at all Total JOEY-7 score (0-4 normal; 5-9 mild; 10-14 moderate; 15-21 severe): 10 Source: Developed by Drs. Venancio Galan, Sharona Mack, Franklyn Beauchamp and colleagues, with an educational tom from [employer]. JOEY-7 Assessment Billing JOEY-7 Assessment Tool: JOEY-7 Assessment 68646 ACT Questionnaire In the past 4 weeks, how much of the time did your asthma keep you from getting as much done at work, school or at home?: None of the time During the past 4 weeks, how often have you had shortness of breath?: Not at all During the past 4 weeks, how often did your asthma symptoms wake you up at night or earlier than usual in the morning?: Not at all During the past 4 weeks, how often have you had to use your rescue inhaler or nebulizer medication?: Not at all ACT Interpretation: Negative Score: 20 Physical exam (Primary Care) Vital Signs: Last Vital Signs Temp 97.6 F 04/10/25 12:27 Pulse 74 04/10/25 12:27 Resp 13 04/10/25 12:27 BP 132/74 04/10/25 12:27 Pulse Ox 97 04/10/25 12:27 Oxygen Delivery Method Room Air 04/10/25 12:27 BMI result Body Mass Index 39.6 BMI Assessment/Plan discussion: High BMI High, discussed plan: lifestyle Tobacco/Smoking Status: Tobacco use Status Tobacco use date assessed 04/10/25 04/10/25 12:22 Patient Tobacco Use Status Never used Tobacco 04/10/25 12:47 e-Cigarette/Vaping Use Never Used 04/10/25 12:47 PHQ-9: PHQ-9 Score PHQ-9: Total score 11 04/10/25 13:01 Depression Screening Interpretation: Positive Depression Screening Follow-up: Existing condition and In treatment Thrive Assessment: Date of Thrive Assessment Date Thrive assessed 04/10/25 04/10/25 12:22 Currently or been in a relationship where the following occur: No concerns reported Office Procedures Diabetic Foot Exam Details: NORMAL MONOFILAMENT AND VIBRATORY SENSATION BILAT G9226 - Diabetic Foot Exam Results AMB Hemoglobin A1c AMB Hemoglobin A1c 9.3 % Last Edit by Denis Roche MA on 04/10/25 12:38 Results Reviewed Results Reviewed: Laboratory Last Values Hgb A1c (Clinic) 9.3 % (4.0-6.0) H 04/10/25 12:32 Coding Level of Care Code New Pt Level 3 (79704) New Pt Prev Care 18-39yr(50340 Diagnoses Encounter to establish care Z76.89 DM type 2 causing complication E11.8 Chronic GERD K21.9 Attention deficit hyperactivity disorder (ADHD), predominantly inattentive type F90.0 Attention deficit-hyperactivity disorder type: predominantly inattentive JOEY (generalized anxiety disorder) F41.1 Mild episode of recurrent major depressive disorder F33.0 Major depression episode severity: mild Mild intermittent asthma without complication J45.20 Asthma complication type: uncomplicated Mixed irritable bowel syndrome K58.2 PCOS (polycystic ovarian syndrome) E28.2 Hirsutism L68.0 Bee sting allergy Z91.030 Laryngitis J04.0 Obesity (BMI 30-39.9) E66.9 Fatty liver K76.0 Encounter for general adult medical examination with abnormal findings Z00.01 CPT Codes Diabetic Foot Exam - CPT: G9226 - Diabetic Foot Exam ([id number]) Additional Codes Asthma Control Questionnaire - ACT Interpretation: Negative ([id number]) JOEY-7 Assessment Billing - JOEY-7 Assessment Tool: JOEY-7 Assessment 21315 ([id number]) PHQ-9 - 86549 - PHQ-9 Billing: Yes ([id number]) Assessment & Plan Assessment & Plan (1) Encounter to establish care: Code(s): Z76.89 - Persons encountering health services in other specified circumstances (2) DM type 2 causing complication: Comment: HYPERGLYCEMIA Code(s): E11.8 - Type 2 diabetes mellitus with unspecified complications Category: Medical (3) Chronic GERD: Code(s): K21.9 - Gastro-esophageal reflux disease without esophagitis Category: Medical (4) ADHD: Code(s): F90.9 - Attention-deficit hyperactivity disorder, unspecified type Category: Medical Qualifiers: Attention deficit-hyperactivity disorder type: predominantly inattentive Qualified Code(s): F90.0 - Attention-deficit hyperactivity disorder, predominantly inattentive type (5) JOEY (generalized anxiety disorder): Code(s): F41.1 - Generalized anxiety disorder Category: Medical (6) MDD (major depressive disorder), recurrent episode: Code(s): F33.9 - Major depressive disorder, recurrent, unspecified Category: Medical Qualifiers: Major depression episode severity: mild Qualified Code(s): F33.0 - Major depressive disorder, recurrent, mild (7) Mild intermittent asthma: Code(s): J45.20 - Mild intermittent asthma, uncomplicated Category: Medical Qualifiers: Asthma complication type: uncomplicated Qualified Code(s): J45.20 - Mild intermittent asthma, uncomplicated (8) Mixed irritable bowel syndrome: Code(s): K58.2 - Mixed irritable bowel syndrome Category: Medical (9) PCOS (polycystic ovarian syndrome): Code(s): E28.2 - Polycystic ovarian syndrome Category: Medical (10) Hirsutism: Code(s): L68.0 - Hirsutism Category: Medical (11) Bee sting allergy: Code(s): Z91.030 - Bee allergy status Category: Medical (12) Laryngitis: Code(s): J04.0 - Acute laryngitis Category: Medical (13) Obesity (BMI 30-39.9): Code(s): E66.9 - Obesity, unspecified Category: Medical (14) Fatty liver: Code(s): K76.0 - Fatty (change of) liver, not elsewhere classified Category: Medical (15) Encounter for general adult medical examination with abnormal findings: Onset Date: ~04/10/25 Code(s): Z00.01 - Encounter for general adult medical examination with abnormal findings Category: Medical Plan . Orders: Orders Complete Blood Count no Diff Today E11.8 - Type 2 diabetes mellitus with unspecified complications Ferritin Today E11.8 - Type 2 diabetes mellitus with unspecified complications IRON PROFILE Today E11.8 - Type 2 diabetes mellitus with unspecified complications Microalbumin, Random (w Creat) Today E11.8 - Type 2 diabetes mellitus with unspecified complications TSH reflex Free T4 Today E11.8 - Type 2 diabetes mellitus with unspecified complications Vitamin B12 and Folate Today E11.8 - Type 2 diabetes mellitus with unspecified complications Vitamin D 25-OH Total Today E11.8 - Type 2 diabetes mellitus with unspecified complications AMB Hemoglobin A1c Today Z13.9 - Encounter for screening, unspecified Comprehensive Met. Panel Today E11.8 - Type 2 diabetes mellitus with unspecified complications Lipid Panel Today E11.8 - Type 2 diabetes mellitus with unspecified complications Referrals Medical Weight Management Referral E66.9 - Obesity, unspecified Endocrinology Referral E11.8 - Type 2 diabetes mellitus with unspecified complications, E28.2 - Polycystic ovarian syndrome, L68.0 - Hirsutism Ophthalmology Referral E11.8 - Type 2 diabetes mellitus with unspecified complications GARMENT SORTER Referral Z12.4 - Encounter for screening for malignant neoplasm of cervix Ear/Nose/Throat Referral J04.0 - Acute laryngitis Medications: New epinephrine (EpiPen 2-Nhan) for 2 doses 0.3 mg (0.3 mL) IM Q10M PRN 2 ea 2RF anaphylaxis dulaglutide (Trulicity) 4.5 mg subcut QWEEK metformin ER 750 mg PO DAILY 90 tabs 1RF albuterol sulfate 90 mcg/actuation 2 inhalations inhalation Q6H PRN 1 ea 0RF shortness of breath or wheezing ammonium lactate 12% 1 appl topical DAILY 385 grams 11RF Patient Instructions: Walk-In Care (Urgent Care): We Make it Easy Walk-in for urgent medical issues such as: ? Seasonal Allergies ? Insect Bites ? Cough ? Diarrhea ? Acute Asthma Attacks ? Back, Knee or Joint Pain ? Ear Infection ? Fever without a Rash ? Headaches ? Nausea ? [place] [facility], Rash or Skin Irritation ? Sore Throat ? Sports Physicals ? Vomiting Most insurances are accepted. Patients do not need to be part of the [facility] to seek care at the walk-in clinic. Locations [address] [facility] , [place] [address] ? [phone] [facility] Walk-In Care in [place] provides services to ages 18 and over. Open Tuesday-Tuesday: 8 a.m. to 5 p.m. and Tuesday: 9 a.m. to 3 p.m.* *Hours may vary due to staffing availability. To confirm Walk-In Care hours in [place], please call [phone]. [address] [place] [address] ? [phone] [facility] Walk-In Care in [place] provides services to ages 12 and over. Open Tuesday-Tuesday: 8 a.m. to 5 p.m. Hours may vary due to staffing availability. To confirm Walk-In Care hours in [place], please call [phone]. LABORATORY SERVICES: [facility] ? Primary Location [address] [place] [address] Tuesday through Tuesday 6:00 AM ? 5:00 PM Tuesday 7:00 AM ? 11:00 AM* [phone] The [facility] is centrally located near the front entrance of the [facility] for easy outpatient access. Convenient parking is provided for outpatients. *Hours may vary due to staffing availability. To confirm Laboratory hours for any location, please call [phone]. Offsite Location For your convenience, we offer offsite laboratory draw stations at the following locations: [address] [place] [address] ? [facility] [address], [address] Tuesday through Tuesday 7:30 AM ? 1:00 PM* [phone] *Hours may vary due to staffing availability. To confirm Laboratory hours for any location, please call [phone]. [place] ? [address], [place] Tuesday through Tuesday 6:00 AM ? 3:30 PM* Tuesday 6:30 AM ? 3 PM* [phone] *Hours may vary due to staffing availability. To confirm Laboratory hours for any location, please call [phone]. [address] [facility] Tuesday through Tuesday 7:30 AM ? 4:00 PM* [phone] *Hours may vary due to staffing availability. To confirm Laboratory hours for any location, please call [phone]. [address] [facility] Tuesday through 9:00 AM ? 4:00 PM* *Hours may vary due to staffing availability. To confirm Laboratory hours for any location, please call [phone]. Appointments are not necessary. Walk-ins are welcome. Like all the departments throughout the [facility], our Lab undergoes frequent reviews to ensure the quality and accuracy of test results, and our staff takes special pride in its status as a nationally accredited facility. Patient Portal: ONE PATIENT. ONE RECORD. BETTER CARE. [facility] has a fully integrated, cutting-edge mobile electronic health information system that has revolutionized the way we care for our patients and manage our organization. This system improves communication and coordination enabling us to provide safe, higher-quality care, and an overall positive experience for staff and patients. Our first priority, as always, is to deliver the highest quality care possible. The system is running in the background supporting that priority. This portal is for all [facility] services and practices. If you are experiencing any technical difficulties with enrolling or logging into the Patient Portal please complete the [facility] Patient Portal Technical Support Form. [facility] now offers a new secure on-line interactive tool for patients to review their health information ? ?Patient Portal. This interactive web portal will enable patients and their families to take an active role in their care by providing easy, secure access to their health information via the internet. The Patient Portal provides patients with instant access to their health information, including laboratory results, medications, allergies, demographic information, visit history, and more. In addition to managing their own care, parents and health care proxies with authorized consent will appreciate the ability to access the records of those individuals for whom they provide care. Please note: if you wish to gain access (Proxy) to another patient?s portal, you will be required to come to the Medical Records Department in person at [facility]. Both the patient giving proxy access and the proxy will need to provide photo identification and complete the appropriate authorization. The Patient Portal also allows track their appointments online. The [facility] Patient Portal also saves patients time by allowing them to submit updates to their demographic and contact information prior to their visits. Portal email notifications will also alert patients to any new activity on their portal, such as test results and new appointments. In order to initially enroll in the [facility] Patient Portal, you will need to enter some required information including the following: your [facility] Medical Record number your personal home email address name date of Please note: In order to enroll in the [facility] Patient Portal, we need to have your email address on file in your electronic medical record. ?The email address needs to be specific for one person (yourself) in order for your Portal enrollment to be successful. ?You can update your email address in person with our Registration staff when you are registering for a hospital visit. ?Otherwise, you will need to come to the Health Information Management (Medical Records) Department at [facility]. ?We are open from Tuesday ? Tuesday from 7:30 a.m. ? 4:30 p.m. ?You will be required to present a photo id. Once you have successfully enrolled in the Patient Portal, you will receive a one-time user id and password for the Portal, sent to your email address. ?This will allow you to log into the Patient Portal within 99 hrs and reset your own logon id and password, and define personal security questions. ?Once your permanent login and password have been set, you can log into the [facility] Patient Portal at any time via the blue button above or from the Portal Logon button on any page of the [facility] website. [facility] and [facility] encourage all of our patients to enroll in Patient Portal as it presents a valuable opportunity for patients and their families to actively participate in their care and stay healthy Welcome to [facility]. ?We look forward to working with you. Health screenings for women You should visit your health care provider from time to time, even if you are healthy. The purpose of these visits is to: Screen for medical issues Assess your risk for future medical problems Encourage a healthy lifestyle Update vaccinations and other preventive care services Help you get to know your provider in case of an illness Information Even if you feel fine, you should still see your provider for regular checkups. These visits can help you avoid problems in the future. For example, the only way to find out if you have high blood pressure is to have it checked regularly. High blood sugar and high cholesterol levels also may not have any symptoms in the early stages. A simple blood test can check for these conditions. There are specific times when you should see your provider or receive specific health screenings. The [place] Preventive Services Task Force publishes a list of recommended screenings. Below are screening guidelines for women ages 18 to 39. BLOOD PRESSURE SCREENING Your blood pressure should be checked at least once every 3 to 5 years if: Your blood pressure is in the normal range (top number less than 120 mm Hg and bottom number less than 80 mm Hg) You don't have risk factors for high blood pressure Ask your provider if you need your blood pressure checked more often if: The top number is 120 to 129 mm Hg or the bottom number is 70 to 79 mm Hg You have diabetes, heart disease, kidney problems, are overweight, or have certain other health conditions You have a first-degree relative with high blood pressure You are Black You had high blood pressure during a If the top number is 130 mm Hg or greater or the bottom number is 80 mm Hg or greater, this is considered stage 1 hypertension. Schedule an appointment with your provider to learn how you can reduce your blood pressure. Watch for blood pressure screenings in your area. Ask your provider if you can stop in to have your blood pressure checked. BREAST CANCER SCREENING Experts do not agree about the benefits of breast self-exams in finding breast cancer or saving lives. Talk to your provider about what is best for you. A screening mammogram is not recommended for most women under age 40. Your provider may discuss and recommend mammograms, MRI scans, or ultrasounds if you have an increased risk for breast cancer, such as: A mother or sister who had breast cancer at a young age (most often starting screening earlier than the age the close relative was diagnosed) You carry a high-risk genetic marker CERVICAL CANCER SCREENING Cervical cancer screening should start at age 21 years unless your provider advises otherwise. After the first test: Women ages 21 through 29 should have a Pap test every 3 years. Exoprts do not agree on whether HPV testing is recommended for this age group. Women ages 30 through 65 should be screened with either a Pap test every 3 years or the HPV test every 5 years or both tests every 5 years (called cotesting ). Women who have been treated for precancer (cervical dysplasia) should continue to have Pap tests for 20 years after treatment or until age 65, whichever is longer. If you have had your uterus and cervix removed (total hysterectomy), and you have not been diagnosed with cervical cancer or precancer (high grade cervical neoplasia), you do not need cervical cancer screening. CHOLESTEROL SCREENING Cholesterol screening should begin at: Age 45 for women with no known risk factors for coronary heart disease Age 20 for women with known risk factors for coronary heart disease Repeat cholesterol screening should take place: Every 5 years for women with normal cholesterol levels More often if changes occur in lifestyle (including weight gain and diet) More often if you have diabetes, heart disease, kidney problems, or certain other conditions DIABETES SCREENING You should be screened for diabetes starting at age 35 and then repeated every 3 years if you have no risk factors for diabetes. Screening may need to start earlier and be repeated more often if you have other risk factors for diabetes, such as: You have a first degree relative with diabetes. You are overweight or have obesity. You have high blood pressure, prediabetes, or a history of heart disease. Screening for diabetes should be done if you are planning to become and you are overweight and have other risk factors such as high blood pressure. DENTAL EXAM Go to the dentist once or twice every year for an exam and cleaning. Your dentist will evaluate if you need more frequent visits. EYE EXAM Have an eye exam every 5 to 10 years before age 40. If you have vision problems, have an eye exam every 2 years or more often if recommended by your provider. You should have an eye exam that includes an examination of your retina (back of your eye) at least every year if you have diabetes. IMMUNIZATIONS Commonly needed vaccines include: Flu shot: get one every year. COVID-19 vaccine: ask your provider what is best for you. Tetanus-diphtheria and acellular pertussis (Tdap) vaccine: have one at or after age 19 as one of your tetanus-diphtheria vaccines if you did not receive it as an adolescent. Tetanus-diphtheria: have a booster (or Tdap) every 10 years. Varicella vaccine: receive 2 doses if you never had chickenpox or the varicella vaccine. Hepatitis B vaccine: receive 2, 3, or 4 doses, depending on your exact circumstances. Measles, mumps, and rubella (MMR) vaccine: receive 1 to 2 doses if you are not already immune to MMR. Your provider can tell you if you are immune. Ask your provider about the human papillomavirus (HPV) vaccine if: You have not received the HPV vaccine in the past You have not completed the full vaccine series (you should catch up on this shot) Ask your provider if you should receive other immunizations if you have certain health problems that increase your risk for some diseases such as pneumonia. INFECTIOUS DISEASE SCREENING Women who are sexually active should be screened for chlamydia and gonorrhea up until age 25. Women 25 years and older should be screened for chlamydia and gonorrhea if at high risk. Screening for hepatitis C: All adults ages 18 to 79 should get a one-time test for hepatitis C. people should be screened at every . Screening for human immunodeficiency virus (HIV): All people ages 15 to 65 should get a one-time test for HIV. Depending on your lifestyle and medical history, you may also need to be screened for infections such as syphilis and HIV, as well as other infections. PHYSICAL EXAM All adults should visit their provider from time to time, even if they are healthy. The purpose of these visits is to: Screen for disease Assess your risk of future medical problems Encourage a healthy lifestyle Update your vaccinations and other preventive care services Maintain a relationship with a provider in case of an illness Your height, weight, and BMI should be checked at every exam. During your exam, your provider may ask you about: Depression and anxiety Diet and exercise Alcohol and tobacco use Safety issues, such as using seat belts, smoke detectors, and intimate partner violence Your medicines and risk for interactions SKIN SELF-EXAM Your provider may check your skin for signs of skin cancer, especially if you're at high risk, such as if you: Have had skin cancer before Have close relatives with skin cancer Have a weakened immune system OTHER SCREENING Talk with your provider about colon cancer screening if you have a strong family history of colon cancer or polyps, or if you have had inflammatory bowel disease or polyps yourself. Routine bone density screening of women under 40 is not recommended.
[2025-04-10 12:27] VITALS: BP 132/74; PULSE 74; RESP 13; TEMP 36.4; O2SAT 97; BMI 39.6
--- OUTSIDE RECORDS SUMMARY | 2025-04-10 12:54 | XMS_ITS | Encounter Summary ---
Author Organization [facility] Address [address] [place] [address] Phone Care Team Providers Care Bartender Helper Name Role Phone Unavailable Primary Care Provider Unavailabl e Encounter Details Date Type Department Care Team (Late st Contact Info) Description 09/07/2013 Documentation [facility] Family Medicine [address] [place] [address] Family Medicine, Physician [address] [place] [address] Social History Tobacco Use Types Packs/Day Years Used Date Smoking Tobacco: Never Assessed Comments Unknown Sex and Gender Information Value Date Recorded Sex Assigned at Not on file Legal Sex Female 5:06 PM EDT Gender Identity Not on file Sexual Orientation Not on file documented as of this encounter Plan of Treatment Not on file documented as of this encounter Visit Diagnoses Not on filedocumented in this encounter
== END 2025-04-10 13:29 | disposition home or self-care (01) ==
LOC: HO.HMCFM 12:17
PROVIDERS: PCP Nurse Practitioner Family; Visit Provider Nurse Practitioner Family
DX: Z00.01 Encounter for general adult medical examination with abnormal findings (principal); E11.8 Type 2 diabetes mellitus with unspecified complications; Z76.89 Persons encountering health services in other specified circumstances; K21.9 Gastro-esophageal reflux disease without esophagitis; F90.0 Attention-deficit hyperactivity disorder, predominantly inattentive type; F41.1 Generalized anxiety disorder; F33.0 Major depressive disorder, recurrent, mild; J45.20 Mild intermittent asthma, uncomplicated; K58.2 Mixed irritable bowel syndrome; E28.2 Polycystic ovarian syndrome; L68.0 Hirsutism; Z91.030 Bee allergy status

== ENCOUNTER → 2025-04-10 12:16 | Outpatient (BNVA) | payer OTHER, SELFPAY | PROVIDERS: PCP Nurse Practitioner Family; Visit Provider Nurse Practitioner Family | DX: Z00.01 Encounter for general adult medical examination with abnormal findings (principal); E78.00 Pure hypercholesterolemia, unspecified; E28.2 Polycystic ovarian syndrome; E11.9 Type 2 diabetes mellitus without complications; E66.9 Obesity, unspecified; R79.89 Other specified abnormal findings of blood chemistry; J45.909 Unspecified asthma, uncomplicated; K21.9 Gastro-esophageal reflux disease without esophagitis; K58.2 Mixed irritable bowel syndrome; E11.8 Type 2 diabetes mellitus with unspecified complications; F90.0 Attention-deficit hyperactivity disorder, predominantly inattentive type; F41.1 Generalized anxiety disorder; F33.0 Major depressive disorder, recurrent, mild; J45.20 Mild intermittent asthma, uncomplicated; L68.0 Hirsutism; J04.0 Acute laryngitis; K76.0 Fatty (change of) liver, not elsewhere classified; Z91.030 Bee allergy status; Z68.39 Body mass index [BMI] 39.0-39.9, adult | CPT/HCPCS: 36415; 80053; 80061; 82043; 82306; 82570; 82607; 82728; 82746; 83036; 83540; 84443; 85027; 96127; 96160; 99202; 99385 ==

== ENCOUNTER 2025-04-10 13:41 | Outpatient (REF) | payer OTHER, SELFPAY ==
[2025-04-10 18:11] LABS: Hematocrit 45.3 % (37.0-47.0); Hemoglobin 15.7 g/dl (12.0-16.0); Mean Corpuscular HGB Conc 34.7 g/dl (31.0-35.0); Mean Corpuscular Hemoglobin 29.2 pg (27.0-33.0); Mean Corpuscular Volume 84.4 fL (80.0-98.0); Mean Platelet Volume 9.9 fL (9.4-12.3); Platelet Count 223 X10*3/uL (160-400); Red Blood Count 5.37 X10*6/uL (4.20-5.50); Red Cell Distribution Width 12.5 % (11.0-16.0); White Blood Count 7.1 X10*3/uL (4.8-10.8)
[2025-04-10 18:39] LABS: Microalbum/Creatinine Ratio Ur 12.2 ug/mg cr (<30)
[2025-04-10 18:39] LABS: Alanine Aminotransferase 70 U/L (0-31); Alkaline Phosphatase 65 U/L (39-117); Anion Gap 10 (12-20); Aspartate Amino Transferase 35 U/L (5-31); Bilirubin Total 0.7 mg/dL (0.0-1.0); Blood Urea Nitrogen 9 mg/dL (9-16); Calcium 8.8 mg/dL (8.4-10.2); Carbon Dioxide 26 mmol/L (22-29); Chloride 109 mmol/L (96-108); Cholesterol 218 mg/dL (<200); Estimated Glomerular Filt Rate > 60; Glucose Random 129 mg/dL (60-115); HDL Cholesterol 41 mg/dL (>40); Iron 118 mcg/dL (30-160); LDL Cholesterol Calculated 147 mg/dL (<100); Percent Iron Saturation 47 % (15-50); Potassium 3.8 mmol/L (3.3-5.1); Sodium 141 mmol/L (135-145); Total Iron Binding Capacity 253 mcg/dL (228-428); Total Protein 6.7 g/dL (6.5-8.0); Triglycerides 151 mg/dL (<150); Unsaturated Iron Binding 135 ug/dL
[2025-04-10 18:56] LABS: Ferritin 290 ng/mL (10-122); TSH reflex Free T4 0.49 uIU/mL (0.32-4.0); Vitamin D 25-OH Total 50.1 ng/mL (>30)
[2025-04-10 18:57] LABS: Vitamin B12 517 pg/mL (200-900)
== END 2025-04-10 13:42 | disposition home or self-care (01) ==
LOC: HO.WFDLDS 13:41
PROVIDERS: Visit Provider Nurse Practitioner Family
DX: Z13.89 Encounter for screening for other disorder (principal)
CPT/HCPCS: 36415; 80053; 80061; 82043; 82306; 82570; 82607; 82728; 82746; 83540; 84443; 85027

== ENCOUNTER 2025-04-23 20:28 | Emergency (ER) | payer OTHER, SELFPAY ==
[2025-04-23 21:11] VITALS: BP 117/78; PULSE 103; RESP 17; TEMP 37.2; O2SAT 98; BMI 40.0
[2025-04-23 22:46] LABS: MANUAL DIFF FLAG NO
[2025-04-23 22:53] LABS: Basophils Absolute Auto 0.1 X10*3/uL (0.0-0.2); Basophils Percent Auto 0.5 % (0-2); Eosinophils Absolute Auto 0.3 X10*3/uL (0.0-0.4); Eosinophils Percent Auto 3.7 % (0-4); Hematocrit 42.4 % (37.0-47.0); Hemoglobin 15.3 g/dl (12.0-16.0); Imm Gran Abs Auto 0.03 X10*3/uL (0.00-0.03); Imm Gran Pct Auto 0.3 % (0.0-0.4); Lymphocytes Absolute Auto 3.9 X10*3/uL (1.2-4.9); Lymphocytes Percent Auto 41.8 % (20-40); Mean Corpuscular HGB Conc 36.1 g/dl (31.0-35.0); Mean Corpuscular Hemoglobin 29.9 pg (27.0-33.0); Mean Platelet Volume 9.8 fL (9.4-12.3); Monocytes Absolute Auto 0.7 X10*3/uL (0.1-1.2); Monocytes Percent Auto 7.8 % (2-11); Neutrophils Absolute Auto 4.2 x10*3/uL (2.0-8.3); Neutrophils Percent Auto 45.9 % (45-73); Platelet Count 218 X10*3/uL (160-400); Red Blood Count 5.11 X10*6/uL (4.20-5.50); Red Cell Distribution Width 12.4 % (11.0-16.0); White Blood Count 9.2 X10*3/uL (4.8-10.8)
[2025-04-23 23:06] LABS: Alanine Aminotransferase 77 U/L (0-31); Alkaline Phosphatase 67 U/L (39-117); Anion Gap 10 (12-20); Aspartate Amino Transferase 32 U/L (5-31); Bilirubin Direct 0.2 mg/dL (0.0-0.5); Bilirubin Total 0.5 mg/dL (0.0-1.0); Blood Urea Nitrogen 11 mg/dL (9-16); Carbon Dioxide 25 mmol/L (22-29); Chloride 107 mmol/L (96-108); Creatinine Clr Calc Pharmacy 145.3; Estimated Glomerular Filt Rate > 60; Glucose Random 256 mg/dL (60-115); Lipase 32 U/L (8-78); Magnesium 1.9 mg/dL (1.6-2.6); Potassium 3.9 mmol/L (3.3-5.1); Sodium 138 mmol/L (135-145); Total Protein 6.7 g/dL (6.5-8.0)
[2025-04-23 23:07] LABS: HCG Quantitative < 2 mIU/mL
[2025-04-24 01:47] VITALS: BP 112/69; PULSE 88; RESP 16; TEMP 36.6; O2SAT 97
--- NOTE | 2025-04-24 01:53 | PC.NURSE ---
Assumed care of pt. Pt states pain in upper abdomen on R side now going down to the lower area x2 days. Pt reports pain at a 9/10, took Advil at noon and it seemed to help a little. Pt unable to eat lunch but was bale to tolerate dinner. No vomit or diarrhea associated. Mild nausea. Respirations even and unlabored.
[2025-04-24 02:29] LABS: Appearance Urine Cloudy; Color Urine Yellow; Glucose Urine UA >=1000 mg/dL (Negative); Leukocyte Esterase Urine Small (1+) (Negative); Nitrite Urine Negative (Negative); PH 5.5 (5.0-9.0); Specific Gravity - Urine >= 1.030 (1.005-1.025); UMIC TRIGGER UACC YES; Urine Blood Negative (Negative); Urine Ketones Negative (Negative); Urine Protein Negative (Neg-Trace)
[2025-04-24 02:47] LABS: Bacteria Urine 4+ (None Seen); Hyaline Casts Urine 0-2 /LPF (0-2); UACC Culture Trigger YES; WBC Urine >50 /HPF (0-5)
--- NOTE | 2025-04-24 06:07 | ED.ABDPAIN ---
HPI - Abdominal Pain General Chief Complaint: Abdominal Pain Stated Complaint: Sharp R upper abdominal pain Time Seen by Provider: 04/24/25 02:57 History of Present Illness ED Provider: Dr. Grace Ballard HPI narrative: Please see paper chart for down time Patient came in complaining of right-sided flank pain. Related Data Home Medications ?Medication ?Instructions ?Recorded ?Confirmed dulaglutide 4.5 mg/0.5 mL 4.5 mg subcut QWEEK 04/10/25 04/10/25 subcutaneous pen injector (Trulicity) famotidine 40 mg tablet 40 mg PO BID 04/10/25 04/10/25 lisdexamfetamine 10 mg capsule 10 mg PO DAILY 04/10/25 04/10/25 (Vyvanse) sertraline 100 mg tablet 100 mg PO DAILY 04/10/25 04/10/25 Previous Rx's ?Medication ?Instructions ?Recorded polyethylene glycol 3350 17 17 g PO BID PRN constipation #238 11/09/21 gram/dose oral powder (Miralax) grams albuterol sulfate 90 mcg/actuation 2 inh inhalation Q6H PRN shortness 04/10/25 breath activated powder inhaler of breath or wheezing #1 ea ammonium lactate 12 % topical cream 1 appl topical DAILY #385 grams 04/10/25 epinephrine 0.3 mg/0.3 mL 0.3 mg (0.3 mL) IM Q10M PRN 04/10/25 injection, auto-injector (EpiPen anaphylaxis #2 ea 2-Nhan) metformin 500 mg tablet,extended 1,000 mg (2 x 500 mg) PO DAILY 04/12/25 release 24 hr #180 tabs Allergies Allergy/AdvReac Type Severity Reaction Status Date / Time bee pollen (BEE STINGS) Allergy Unknown LEGS SWELL Verified 04/23/25 21:17 UP poppyseed oil (POPPYSEED OIL) Allergy Unknown ITCHY Verified 04/23/25 21:17 THROAT PMFSH Past Medical History Medical History (Updated 04/24/25 @ 06:08 by Grace Ballard MD) Anxiety and depression Fatty liver Asthma Diabetes PCOS (polycystic ovarian syndrome) Surgical History (Updated 04/10/25 @ 12:50 by Denis Roche MA) Hx of colonoscopy (~01/2025) H/O endoscopy (~01/2025) Family History Family History (Updated 04/10/25 @ 12:48 by Denis Roche MA) Father Substance abuse Mother Asthma Diabetes Maternal Grandmother Asthma Breast cancer Social History Social History (Updated 04/10/25 @ 12:47 by Denis Roche MA) Household Members: Family Housing: House Are you a primary manager respiratory care to a significant other at home: No Do you presently have visiting nurse or other home services: No Alcohol intake: current Alcohol intake frequency: holidays/special occasions only Patient Tobacco Use Status: Never used Tobacco Smoked in Last 30 Days: No e-Cigarette/Vaping Use: Never Used Second Hand Smoke Exposure: No Use of substances other than those prescribed or required for medical reasons: No Substance Use Type: Marijuana Advance Directives: No Do you have a plan to hurt others: No Plan Current occupational status: employed 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0-98.0) fL MCH 29.9 (27.0-33.0) pg MCHC 36.1 H (31.0-35.0) g/dl RDW 12.4 (11.0-16.0) % Plt Count 218 (160-400) X10*3/uL MPV 9.8 (9.4-12.3) fL Immature Gran % (Auto) 0.3 (0.0-0.4) % Neut % (Auto) 45.9 (45-73) % Lymph % (Auto) 41.8 H (20-40) % [place] % (Auto) 7.8 (2-11) % Eos % (Auto) 3.7 (0-4) % Baso % (Auto) 0.5 (0-2) % Lymph # (Auto) 3.9 (1.2-4.9) X10*3/uL [place] # (Auto) 0.7 (0.1-1.2) X10*3/uL Eos # (Auto) 0.3 (0.0-0.4) X10*3/uL Baso # (Auto) 0.1 (0.0-0.2) X10*3/uL Abs Immat Gran (auto) 0.03 (0.00-0.03) X10*3/uL Absolute Neuts (auto) 4.2 (2.0-8.3) x10*3/uL Absolute Nucleated RBC 0.000 (0.0-0.012) X10*3/uL Nucleated RBC % (auto) 0.0 (0.0-0.2) /100WBC Sodium 138 (135-145) mmol/L Potassium 3.9 (3.3-5.1) mmol/L Chloride 107 (96-108) mmol/L Carbon Dioxide 25 (22-29) mmol/L Anion Gap 10 L (12-20) BUN 11 (9-16) mg/dL Creatinine 0.69 (0.5-1.4) mg/dL Estim Creat Clear Calc 145.3 Estimated GFR > 60 Random Glucose 256 H (60-115) mg/dL Calcium 9.0 (8.4-10.2) mg/dL Magnesium 1.9 (1.6-2.6) mg/dL Total Bilirubin 0.5 (0.0-1.0) mg/dL Direct Bilirubin 0.2 (0.0-0.5) mg/dL AST 32 H (5-31) U/L ALT 77 H (0-31) U/L Alkaline Phosphatase 67 (39-117) U/L Total Protein 6.7 (6.5-8.0) g/dL Albumin 4.0 (3.5-5.0) g/dL Lipase 32 (8-78) U/L Beta HCG, Quant < 2 mIU/mL Urine Color Yellow Urine Appearance Cloudy Urine pH 5.5 (5.0-9.0) Ur Specific [place] >= 1.030 H (1.005-1.025) Urine Protein Negative (Neg-Trace) mg/dL Urine Glucose (UA) >=1000 H (Negative) mg/dL Urine Ketones Negative (Negative) mg/dL Urine Blood Negative (Negative) Urine Nitrite Negative (Negative) Ur Leukocyte Esterase Small (1+) H (Negative) Urine RBC 6-10 H (0-2) /HPF Urine WBC >50 H (0-5) /HPF Ur Squamous Epith Cells 11-20 (0-2) /HPF Urine Bacteria 4+ (None Seen) Hyaline Casts 0-2 (0-2) /LPF Please see paper chart. Normal vitals Sepsis not suspected P.o. antibiotics given in the emergency room Paper script given to the patient Discharge Plan Discharge Clinical Impression: Pyelonephritis Patient Disposition: Home, Self-Care Prescriptions: No Action metformin 500 mg tablet extended release 24 hr 1,000 mg PO DAILY Qty: 180 0RF polyethylene glycol 3350 [Miralax] 17 gram/dose powder 17 g PO BID PRN (Reason: constipation) Qty: 238 0RF lisdexamfetamine [Vyvanse] 10 mg capsule 10 mg PO DAILY sertraline 100 mg tablet 100 mg PO DAILY famotidine 40 mg tablet 40 mg PO BID epinephrine [EpiPen 2-Nhan] 0.3 mg/0.3 mL auto-injector 0.3 mg IM Q10M PRN (Reason: anaphylaxis) Qty: 2 2RF Rx Instructions: for 2 doses Trulicity 4.5 mg/0.5 mL pen injector 4.5 mg subcut QWEEK albuterol sulfate 90 mcg/actuation aerosol powdr breath activated 2 inh inhalation Q6H PRN (Reason: shortness of breath or wheezing) Qty: 1 0RF ammonium lactate 12 % cream 1 appl topical DAILY Qty: 385 11RF Print Language: Hungarian
== END 2025-04-24 07:05 | disposition home or self-care (01) ==
PROVIDERS: Emergency Medicine; Emergency Provider Emergency Medicine; PCP Nurse Practitioner Family
DX: N12 Tubulo-interstitial nephritis, not specified as acute or chronic (principal); E11.8 Type 2 diabetes mellitus with unspecified complications; E78.5 Hyperlipidemia, unspecified; E28.2 Polycystic ovarian syndrome; J45.20 Mild intermittent asthma, uncomplicated
CPT/HCPCS: 36415; 80048; 80076; 81001; 83690; 83735; 84702; 85025; 87086; 99283; 99284

== ENCOUNTER 2025-04-26 10:41 | Outpatient (AMB) | payer OTHER, SELFPAY ==
--- NOTE | 2025-04-26 10:47 | MHC.PC.OV ---
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 Required: No Allergies bee pollen (BEE STINGS) Allergy (Unknown, Verified 04/26/25 11:02) LEGS SWELL UP poppyseed oil (POPPYSEED OIL) Allergy (Unknown, Verified 04/26/25 11:02) ITCHY THROAT Medication List - Last Reconciled 04/26/25 by Suyapa Rene, [facility] albuterol sulfate 90 mcg/actuation 2 inhalations inhalation Q6H PRN ammonium lactate 12% 1 appl topical DAILY dulaglutide (Trulicity) 4.5 mg subcut QWEEK epinephrine (EpiPen 2-Nhan) 0.3 mg (0.3 mL) IM Q10M PRN famotidine 40 mg PO BID lisdexamfetamine (Vyvanse) 10 mg PO DAILY metformin ER 1,000 mg (2 x 500 mg) PO DAILY polyethylene glycol 3350 (Miralax) 17 grams PO BID PRN sertraline 100 mg PO DAILY Tobacco use date assessed: 05/08/25 Dental Screening Dental Screen Date: 04/10/25 HPI HPI Comments History of Present Illness Details 25-year-old female with PCOS, diabetes 2, obesity, elevated LFTs, Asthma , chronic GERD, Mixed IBS,Bee sting allergy Health Maintenance: PAP reports normal in the past, would like [facility] [employer] referral Tdap 2018 Diabetic Eye Exam:[facility], 2023, needs new referral Specialists: Counselor, Prescriber [facility] [employer] at [facility] History of Present Illness - The patient is a 25-year-old female presenting with pyelonephritis and recurrent urinary tract infections. - Diagnosed with pyelonephritis on April 24. [facility] ED visit. Record reviewed. - Reports severe abdominal pain, sharp and radiating. - No back pain reported. - Fever noted at 99.5?F, fluctuating during hospital stay. - Nausea present, no vomiting. - Levofloxacin prescribed for 9 days, completion around May 03. - Previous imaging in [address] abd/pelv. - Recurrent urinary tract infections since childhood. - Cont to have low grade fevers 99 as of yesterday, 98 today. - Mild nausea, no vomiting, tolerating po intake Review of Systems - Constitutional: Reports fever, denies chills. - Gastrointestinal: Reports nausea, denies vomiting. - Genitourinary: Reports recurrent urinary tract infections. Results See below Assessment and Plan 1. Pyelonephritis - Continue Levofloxacin, complete by May 03. - Monitor symptoms. - Ultrasound bladder/renal ordered. - Follow-up UA CC post-antibiotic. 2. Recurrent urinary tract infections - Urology referral for further management. - Await imaging and appointment scheduling. Edu on reasons to seek additional care. Telehealth Attestation The patient has been explained that this is an interactive (audio/video) telehealth encounter and what that consists of. The patient understands and wishes to proceed. [employer] platform was used. Total time spent caring for the patient today was 21 minutes. This includes time spent before the visit reviewing the chart, time spent during the visit, and time spent after the visit on documentation, reviewing laboratory results, diagnostic imaging, medications, performing a medically necessary evaluation, counseling on diagnoses, care coordination, ordering appropriate tests, ordering appropriate medications, review of tests performed by other providers, reporting test results with the patient, communication with other healthcare providers. [facility] Medical History (Updated 04/26/25 @ 11:06 by Suyapa Rene [facility]) Anxiety and depression Fatty liver Asthma Diabetes PCOS (polycystic ovarian syndrome) Surgical History (Updated 04/10/25 @ 12:50 by Denis Roche MA) Hx of colonoscopy (~01/2025) H/O endoscopy (~01/2025) Family History (Updated 04/10/25 @ 12:48 by Denis Roche MA) Father Substance abuse Mother Asthma Diabetes Maternal Grandmother Asthma Breast cancer Social History (Updated 04/10/25 @ 12:47 by Denis Roche MA) Household Members: Family Both parents involved: No Caregiver staying overnight: No Housing: House Are you a primary primary care nurse practitioner to a significant other at home: No Do you presently have visiting nurse or other home services: No 75 years or older and lives alone: No Alcohol intake: current Alcohol intake frequency: holidays/special occasions only Patient Tobacco Use Status: Never used Tobacco e-Cigarette/Vaping Use: Never Used Second Hand Smoke Exposure: No Substance Use Type: Marijuana Current occupational status: employed 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 Venancio Galan, Sharona Mack, Franklyn Beauchamp and colleagues, with an educational tom from [employer]. Physical exam (Primary Care) Tobacco/Smoking Status: Tobacco use Status Tobacco use date assessed 05/08/25 04/26/25 10:49 Patient Tobacco Use Status Never used Tobacco 04/26/25 10:49 e-Cigarette/Vaping Use Never Used 04/26/25 10:49 Thrive Assessment: Date of Thrive Assessment Date Thrive assessed 04/10/25 04/26/25 10:49 Telehealth Telehealth Telehealth Platform: [employer] Location of provider rendering services: practice address Location of patient: address on file Patient Identification confirmed using: Name, : Yes Telehealth method: voice only Patient verbally consented to treatment: Yes Patient verbally consented to billing insurance company: Yes Patient informed of any privacy concerns related to visit: Yes Minutes spent on Phone/Video with Pt.: 9 Coding Level of Care Code Tele Est Pt Level 3 (71467) Complex EM visit Add On G2211 Diagnoses Hospital discharge follow-up Z09 Pyelonephritis N12 Recurrent UTI N39.0 Assessment & Plan Assessment & Plan (1) Hospital discharge follow-up: Code(s): Z09 - Encounter for follow-up examination after completed treatment for conditions other than malignant neoplasm (2) Pyelonephritis: Code(s): N12 - Tubulo-interstitial nephritis, not specified as acute or chronic Category: Medical (3) Recurrent UTI: Code(s): N39.0 - Urinary tract infection, site not specified Category: Medical Plan . Orders: Orders US bladder Today N12 - Tubulo-interstitial nephritis, not specified as acute or chronic, N39.0 - Urinary tract infection, site not specified, Z09 - Encounter for follow-up examination after completed treatment for conditions other than malignant neoplasm US renal BI Today N12 - Tubulo-interstitial nephritis, not specified as acute or chronic, N39.0 - Urinary tract infection, site not specified, Z09 - Encounter for follow-up examination after completed treatment for conditions other than malignant neoplasm UA CC w/rflx Micro + Cult Today N12 - Tubulo-interstitial nephritis, not specified as acute or chronic, Z09 - Encounter for follow-up examination after completed treatment for conditions other than malignant neoplasm Referrals Urology Referral N12 - Tubulo-interstitial nephritis, not specified as acute or chronic, N39.0 - Urinary tract infection, site not specified
--- OUTSIDE RECORDS SUMMARY | 2025-04-26 11:08 | XMS_ITS | Encounter Summary ---
Author Organization [facility] Address [address] [place] [address] Phone Care Team Providers Care Net Developer With Wcf Name Role Phone Unavailable Primary Care Provider Unavailabl e Encounter Details Date Type Department Care Team (Late st Contact Info) Description 09/07/2013 Documentation [facility] Family Medicine [address] [place] [address] Family Medicine, Physician [address] [place] [address] Social History Tobacco Use Types Packs/Day Years [...]
== END 2025-04-26 11:13 | disposition home or self-care (01) ==
LOC: HO.HMCFM 10:41
PROVIDERS: PCP Nurse Practitioner Family; Visit Provider Nurse Practitioner Family
DX: Z09 Encounter for follow-up examination after completed treatment for conditions other than malignant neoplasm (principal); N12 Tubulo-interstitial nephritis, not specified as acute or chronic; N39.0 Urinary tract infection, site not specified

== ENCOUNTER → 2025-04-26 10:41 | Outpatient (BNVA) | payer OTHER, SELFPAY | PROVIDERS: PCP Nurse Practitioner Family; Visit Provider Nurse Practitioner Family ==

== ENCOUNTER 2025-05-03 11:23 | Outpatient (REF) | payer OTHER, SELFPAY ==
[2025-05-03 11:48] LABS: Appearance Urine Clear; Color Urine Yellow; Glucose Urine UA 100 mg/dL (Negative); Leukocyte Esterase Urine Moderate (2+) (Negative); Nitrite Urine Negative (Negative); PH 5.5 (5.0-9.0); UMIC TRIGGER UACC YES; Urine Blood Negative (Negative); Urine Ketones Trace mg/dL (Negative); Urine Protein Negative (Neg-Trace)
[2025-05-03 11:57] LABS: Bacteria Urine Trace (None Seen); Hyaline Casts Urine 0-2 /LPF (0-2); RBC Urine 0-2 /HPF (0-2); UACC Culture Trigger YES
--- OUTSIDE RECORDS SUMMARY | 2025-05-03 12:38 | XMS_ITS | Encounter Summary ---
Author Organization [facility] Address [address] [place] [address] Phone Care Team Providers Care Furniture Fabricator Name Role Phone Unavailable Primary Care Provider Unavailabl e Encounter Details Date Type Department Care Team (Late st Contact Info) Description 09/07/2013 Documentation [facility] [place] Family Medicine [address] [place] [address] Family Medicine, Physician [address] [place] [address] Social History Tobacco Use Types Packs/Day Years [...]
== END 2025-05-03 11:24 | disposition home or self-care (01) ==
LOC: HO.LAB 11:23
PROVIDERS: PCP Nurse Practitioner Family; Visit Provider Nurse Practitioner Family
DX: N12 Tubulo-interstitial nephritis, not specified as acute or chronic (principal)
CPT/HCPCS: 81001; 87086

== ENCOUNTER 2025-06-13 12:04 | Outpatient (REF) | payer OTHER, SELFPAY ==
--- NOTE | ~2025-06-13 | US_ITS ---
EXAMINATION: US RETROPERITONEUM HISTORY: N12 - Tubulo-interstitial nephritis, not specified as acute or chronic TECHNIQUE: Real-time grayscale ultrasound imaging of the kidneys was performed and images were reviewed. COMPARISON: Correlation is made with a CT of the abdomen with contrast dated 03/02/2023. FINDINGS: Right kidney: The right kidney measures 11.6 x 5.7 x 6.4 cm. Renal parenchymal echotexture and thickness are normal. There are no masses. There is no hydronephrosis or renal calculi. Left Kidney: The left kidney measures 12.5 x 5.6 x 6.6 cm. Renal parenchymal echotexture and thickness are normal. There is a 10 mm cyst in the interpolar region. There is no hydronephrosis or renal calculi. The urinary bladder is unremarkable. Bilateral ureteral jets are identified. Before voiding, the urinary bladder measured 10.0 x 15.4 x 8.2 cm, for an estimated volume of 661 mL. After voiding, the urinary bladder measured 4.0 x 3.3 x 3.6 cm, for an estimated volume of 25 mL. US/US retroperitoneal comp IMPRESSION: 10 mm left renal cyst. Otherwise unremarkable retroperitoneal ultrasound. Post void bladder residual 25 mL. Electronically signed by: Venancio Terry MD 06/13/2025 01:30 PM EDT
--- OUTSIDE RECORDS SUMMARY | 2025-06-13 12:29 | XMS_ITS | Encounter Summary ---
Author Organization [facility] Address [address] [place] [address] Phone Care Team Providers Care Yeast Culture Developer Name Role Phone Unavailable Primary Care Provider Unavailabl e Encounter Details Date Type Department Care Team (Late st Contact Info) Description 02/13/2016 Documentation [facility] [place] [address] [place] [address] Family Medicine, Physician [address] [place] [address] Social History Tobacco Use Types Packs/Day Years [...]
--- OUTSIDE RECORDS SUMMARY | 2025-06-13 12:29 | XMS_ITS | Clinical Summary ---
Author Organization [facility] Address [address] [place] [id number] Phone Care Team Providers Care Spray Stainer Name Role Phone Michelle Castellanos MD Primary Care Provider + Sofy Rothman PA-C Unavailable [phone] Allergies Active Allergy Reactions Criticality Noted Date Comments Venom-Honey Bee 05/22/2019 Medications albuterol 90 mcg/actuation inhaler Inhale 2 puffs into the lungs daily. 020 Active lancets 28 gauge MiscIndications :Type 2 diabetes mellitus without complication, without long-term current use of insulin 1 each by Miscellaneous route as needed. 100 each 3 023 Active blood-glucose sensor (FREESTYLE WENDY 3 SENSOR) DeviIndications :Type 2 diabetes mellitus with hyperglycemia, without long-term current use of insulin 1 Device by Miscellaneous route every 14 (fourteen) days. 6 each 3 023 Active metFORMIN (GLUCOPHAGE-XR) 500 MG 24 hr tabletIndicatio ns:Type 2 diabetes mellitus without complication, without long-term current use of insulin Take 4 tablets (2,000 mg total) by mouth daily with breakfast. Start with 1 pill PO qbreakfast and after 2 weeks increase to 2 pills q breakfast 360 tablet 3 024 Active sertraline (ZOLOFT) 100 MG tabletIndicatio ns:Severe episode of recurrent major depressive disorder, without psychotic features Take 1 tablet (100 mg total) by mouth daily. 90 tablet 1 024 Active VYVANSE 10 mg capsule Active docusate sodium (COLACE) 100 MG capsule Take 1 capsule (100 mg total) by mouth 2 (two) times a day. 30 capsule 1 025 Active EPINEPHrine 0.3 mg/0.3 mL auto-injector Inject 0.3 mL (0.3 mg total) into the muscle as needed for anaphylaxis. 2 each 11 025 Active TRULICITY 4.5 mg/0.5 mL subcutaneous injectionIndica tions:Type 2 diabetes mellitus with hyperglycemia, without long-term current use of insulin INJECT 0.5 ML (4.5 MG TOTAL) UNDER THE SKIN EVERY 7 DAYS. 6 mL 025 Active dulaglutide (TRULICITY) 4.5 mg/0.5 mL subcutaneous injectionIndica tions:Type 2 diabetes mellitus with hyperglycemia, without long-term current use of insulin Inject 0.5 mL (4.5 mg total) under the skin every 7 days. 2 mL 3 025 2024 Discontinued Active Problems Problem Noted Date Diagnosed Date Obesity, morbid 12/23/2023 Type 2 diabetes mellitus with neurological manif estations 12/23/2023 PCOS (polycystic ovarian syndrome) 03/04/2022 Assessment & Plan (03/23/2024 6:28 PM EDT): Cycles are regular since stopping OCPs. We discussed the need for a physiologic period or a withdraw bleed at least q3 months for endometrial protection. In the setting of regular cycles and no need for prevention, reasonable to manage expectantly for now. Mary Ellen will continue to track cycles and f/u if bleeding is abnormal. Assessment & Plan (03/04/2022 12:13 AM EDT): Pleased w/ OCP menstrual regulation Resolved Problems Problem Noted Date Diagnosed Date Resolved Date Flank pain 01/13/2024 03/23/2024 Assessment & Plan (01/13/2024 1:54 PM EST): Exam concerning for pyelonephritis, UA negative again today. Her assessment is worse from previous documentation and per her report. We discussed labs and stat CT, unable to get an outpatient CT within the next few days. I have recommended she go to the ED for urgent imaging. She understands and agrees, will go to the ED today. History of bee sting allergy 01/14/2023 03/23/2024 Elevated ferritin 05/21/2022 06/27/2024 Transaminitis 03/04/2022 03/23/2024 Assessment & Plan (05/18/2022 2:30 PM EDT): Likely due to uncontrolled DM Check labs today Assessment & Plan (03/04/2022 12:18 AM EDT): Mild elevation, likely FLD Discussed eval. Labs drawn today Discussed US vs repeat with lifestyle changes. Will repeat LFT in 3-6 m US if not improved Type 2 diabetes mellitus wit h hyperglycemia, without long-term current use of insulin 03/04/2022 03/23/2024 Assessment & Plan (05/18/2022 2:30 PM EDT): Excellent improvement with lifestyle changes Congratulated patient on improvement Well controlled F/u 6 mos Assessment & Plan (03/04/2022 12:15 AM EDT): Discussed mgmt Strongly encouraged metformin in conjucntion with lifestyle changes. Pt declined despite reassureances re: safety and efficacy Repeat A1c in 2.5 mos to assess for reaching goal Continue carb-controlled diet and walking Encounters Date Type Department Care Team Description 05/13/2025 Refill [facility] Family Medicine [address] [place] [address] Michelle Castellanos MD Medication Refill 03/24/2025 Refill [facility] [address] [place] [address] Michelle Castellanos MD Medication Refill from Last 3 Months Immunizations Immunization Administration Dates Next Due DTaP 10/01/2002, 9,1998,09/25,1998 FCmS-Tkp-GWT 09/18/1999, 9,1998,06/17 HPV,quadrivalent 03/09/2011,09/25/2009, 9 Hepatitis A, ped/adol, 2 dose 07/07/2015, 015,03/09/2011 Hepatitis B 1998,1998,1998 Hepatitis B Adult 08/08/2019 Hib,PRP-T 09/18/1999, 9,1998,06/17 INFLUENZA, SPLIT VIRUS, TRIV ALENT W/ PRESERVATIVE IM 07/24/2009,08/10/1999 IPV 10/01/2002, 9,1998,06/17 Influenza Quadrivalent MDCK Preservative Free IM 09/13/2020 Influenza Quadrivalent Prese rvative Free IM 08/26/2016,07/07/2015 Influenza Split (Incl. Purif ied Surface Antigen) 10/08/2013 Influenza quadrivalent nasal 10/04/2012 MMR 10/01/2002,04/07/1999 Meningococcal MCV4P 07/07/2015,07/24/2009 Pneumococcal conjugate PCV20 05/18/2023 Tdap 06/13/2019,07/24/2009 Varicella 04/30/2020, 9,09/25/2009,08/10 Family History Medical History Relation Comments Arnold-Chiari malformation Mother Diabetes Mother Breast cancer Neg Hx Colon cancer Neg Hx Ovarian cancer Neg Hx Relation Status Comments Father Alive Mother Alive Social History Tobacco Use Types Packs/Day Years Used Date Smoking Tobacco: Never Smokeless Tobacco: Never Alcohol Use Standard Drinks/Week Comments Yes 0 (1 standard drink = 0.6 oz pur e alcohol) 2 drinks/month Child or Family Care Answer Date Record ed Do you have problems with on e of the following making it difficult for you to work, study, or receive health care? No 02/02/2022 Education Answer Date Recorded Are you interested in more education? Not on selina e 02/03/2024 Are you concerned about learning? Not on file 02/03/2024 No 02/03/2024 No 02/03/2024 Food Answer Date Recorded Within the past 6 months we worried whether our food would run out before we got money to buy more. Never True 02/02/2022 Within the past 6 months the food we bought just didn't last and we didn't have enough money to get more. Never True Residential Stability Answer Date Recor ded What is your housing situation today? I have nisa byrnes 02/02/2022 How many times have you move d in the past 12 months? Zero (I did not move) 02/02/2022 Paying for Meds Answer Date Recorded Do you have trouble paying for medicines? No 02/02/2022 Paying Utility Bills Answer Date Record ed Do you have trouble paying your heating or elect ricity bill? No 02/02/2022 Transportation Answer Date Recorded Has the lack of transportati on kept you from medical appointments or from getting medications? No 02/02/2022 Unemployment Answer Date Recorded Are you currently unemployed or working on a part-time or temporary basis, and looking for work? No 02/02/2022 Digital Access Answer Date Recorded No 04/02/2023 No 04/02/2023 Reliable internet access at home? Not on file 04/02/2023 Device with a working camera? Not on file Comments Unknown Sex and Gender Information Value Date Recorded Sex Assigned at Female 02/02/2022 3:11 PM EDT Legal Sex Female 3:04 PM EST Gender Identity Female 02/02/2022 3:11 PM EDT Sexual Orientation Bisexual 02/02/2022 3: 11 PM EDT Last Filed Vital Signs Vital Sign Reading Time Taken Comments Blood Pressure 134/98 01/14/2025 10:50 AM EDT Pulse 87 01/14/2025 10:50 AM EDT Temperature 36 C (96.8 F) 01/14/2025 10:31 AM EDT Respiratory Rate 21 01/14/2025 10:50 AM EDT Oxygen Saturation 100% 01/14/2025 10:50 AM EDT Inhaled Oxygen Concentration - - Weight 107.5 kg (237 lb) 11/21/2024 10:16 AM EST Height 162.6 cm (5' 4.02 ) 11/21/2024 10:[address] Body Mass Index 40.66 11/21/2024 10:16 AM EST Plan of Treatment Health Maintenance Due Date Last Done Comments HEMOGLOBIN A1C 03/29/2024 12/30/2023, 07/08, 07/19/2023, Additional history exists COVID-19 VACCINE ( season) 2024 05/07/2021, 04/09/2021 DEPRESSION SCREENING 11/11/2024 11/11/2023, 11/11/19 DIABETIC EYE EXAM 12/03/2024 12/03/2023, , 06/18/2022 LIPID PANEL 12/30/2024 12/30/2023, 01/05, 01/17/2023, Additional history exists URINE MICROALBUMIN/CREATININE RATIO 01/11/2025 01/12/2024, 03/02/2023, 01/19/2023, Additional history exists BLOOD PRESSURE 05/21/2025 11/21/2024 CREATININE LEVEL 01/10/2026 01/10/2025, , 01/17/2023, Additional history exists PAP SMEAR 06/27/2027 06/27/2024 Adult Td,Tdap Booster 06/13/2029 06/13/2019, 009 HIB VACCINES Completed 09/18/1999, 09/07, 1998, Additional history exists HEPATITIS A VACCINES Completed 07/07/2015, 04/17/2015, 03/09/2011 MENINGOCOCCAL VACCINES (ACWY) Completed 07/07/2015, 07/24/2009 HEPATITIS C SCREENING Completed 02/04/2022, 022 HIV ONE-TIME SCREENING (18-65 YEARS) Completed 02/04/2022 PNEUMOCOCCAL VACCINES (0-49 years) Completed 05/18/2023 SMOKING STATUS SCREENING (Once After 26 Yrs) Completed 01/14/2025 MENINGOCOCCAL VACCINES (B) Aged Out N o longer eligible based on patient's age to complete this topic Medical Devices Not on file Procedures Procedure Name Priority Date/Time Associated Diagnosis Comments COMPREHENSIVE METABOLIC PANEL Routine 01/10/2025 9:20 AM EST Gastroesophageal reflux disease without esophagitis Constipation, unspecified constipation type Bloating Diarrhea, unspecified type Nausea PAP TEST Routine 06/27/2024 12:00 AM EDT MICROALBUMIN/CREATINI NE RATIO, RANDOM URINE Routine 01/12/2024 8:05 AM EST Type 2 diabetes mellitus with hyperglycemia, without long-term current use of insulin HEMOGLOBIN A1C Routine 12/30/2023 8:24 AM EST Type 2 diabetes mellitus with hyperglycemia, without long-term current use of insulin LIPID PANEL Routine 12/30/2023 8:24 AM EST Type 2 diabetes mellitus with hyperglycemia, without long-term current use of insulin Class 3 severe obesity due to excess calories with serious comorbidity and body mass index (BMI) of 40.0 to 44.9 in adult DIABETES EYE EXAM FOR RESULT ENTRY ONLY Routine 12/03/2023 4:39 PM EST HEPATITIS C ANTIBODY, QUALITATIVE Routine 02/04/2022 11:06 AM EDT Need for hepatitis C screening test Annual physical exam from Last 3 Months or Most Recently Relevant to Health Maintenance Results * (ABNORMAL) Comprehensive metabolic panel (01/10/2025 9:20 AM EST) SODIUM 139 133 - 146 mmol/L [facility] POTASSIUM 4.2 3.3 - 5.1 mmol/L [facility] CHLORIDE 103 96 - 108 mmol/L [facility] CO2 26 21 - 35 mmol/L [facility] BUN 10 6 - 19 mg/dL [facility] CREATININE 0.60 0.5 - 1.5 mg/dL [facility] GLUCOSE 211(H) 70 - 99 mg/dL [facility] ALBUMIN 3.9 3.9 - 4.8 g/dL [facility] TOTAL PROTEIN 7.2 6.5 - 8.0 g/dL [facility] CALCIUM 8.9 8.4 - 10.3 mg/dL [facility] ALKALINE PHOSPHATASE 67 39 - 117 U/L [facility] TOTAL BILIRUBIN 0.5 0.0 - 1.2 mg/dL [facility] AST 28 0 - 37 U/L [facility] ALT 60(H) 0 - 40 U/L [facility] GLOBULIN 3.3 1 - 4.8 g/dL [facility] EGFR >120 >59 mL/min/1.7 3m2 [facility] Comment:Estimated glomerular filtration rate calculated using the CKD-EPI refit equation. ANION GAP 14 10 - 20 mmol/L [facility] Blood 01/10/2025 9:20 AM EST 01/10/2025 9:22 AM EST us Sharona Ramos NP LAB BLOOD ORDERABLES Anastasia l Result [address] [address] * Pap Test (06/27/2024 12:00 AM EDT) 06/27/2024 06/28/2024 10: 33 AM EDT Narrative SEE NARRATIVE - 07/02/2024 3:26 PM EDT [address] [address] Waitstaff: Margot Cason MD FLORAL MANAGER Cytology Report FINAL DIAGNOSIS A. PAP SMEAR (THIN PREP) CE: SPECIMEN ADEQUACY: Satisfactory for evaluation; transformation zone present. INTERPRETATION: NEGATIVE FOR INTRAEPITHELIAL LESION OR MALIGNANCY. Due to blood, the specimen was reprocessed with 10% Glacial Acetic Acid. This specimen was analyzed by the automated ThinPrep Imaging System (Hyper Wear Shu.) and manually rescreened by a plunket nurse and/or pathologist. Electronically Signed Out By: ANN MARIE Morales(ASCP) The Pap test is a screening test primarily for squamous cancers and precursors and has associated false-negative and false-positive results. New technologies such as liquid-based preparations may decrease but will not eliminate all false-negative results. Regular sampling and follow-up of unexplained clinical signs and symptoms are recommended to minimize false negative results. CLINICAL HISTORY Date of Last Menstrual Period: 06-25-2024 Other Clinical Conditions: Screening Pap SPECIMEN SOURCE A: PAP SMEAR (THIN PREP) CE Patient Name: MARY ELLEN ARZOLA : 2000 (Age: 24) Sex: F [facility] Date of Collection: 06/27/2024 Date of Reported: 07/02/2024 15:26 Results to: Edna Naidu MD us Edna Naidu MD CYTOLOGY ORDERABLES Final Res ult SEE NARRATIVE * Microalbumin/creatinine ratio, random urine (01/12/2024 8:05 AM EST) URINE MICROALBUMIN <1.2 0 - 2.3 mg/dL [facility] URINE CREATININE 175 mg/dL [facility] MICROALB/CRE RATIO NOT CALCULATED 0 - 20 mg/g Cre [facility] Comment:due to Microalbumin <1.2 Urine (Urine) 01/12/2024 8:0 5 AM EST 01/12/2024 8:09 AM EST us Michelle Castellanos MD URINE ORDERABLES Final R esult Performing Organization Address [facility]/ZIP Co de Phone Number [address] [address] * (ABNORMAL) Hemoglobin A1c (12/30/2023 8:24 AM EST) HEMOGLOBIN A1C 9.0(H) 4.3 - 5.8 % [facility] Blood 12/30/2023 8:24 AM EST 12/30/2023 8:26 AM EST us Michelle Castellanos MD LAB BLOOD ORDERABLES Fin al Result Performing Organization Address [facility] Co de Phone Number [address] [address] * (ABNORMAL) Lipid panel (12/30/2023 8:24 AM EST) HDL 49 mg/dL [facility] Comment: Interpretation <40 mg/dL: Low HDL cholesterol (major risk factor for CHD) Greater than or equal to 60 mg/dL: High HDL cholesterol ( negative risk factor for CHD) HDL - cholesterol is affected by a number of factors, e.g. smoking, excerise, hormones, sex and age. CHOLESTEROL 216 0 - 240 mg/dL [facility] TRIGLYCERIDES 118 30 - 160 mg/dL [facility] LDL 143(H) 50 - 129 mg/dL [facility] Comment: LDL levels in terms of risk for coronary heart disease: <100 mg/dL: Optimal 100-129 mg/dL: Near or above optimal 130-159 mg/dL: Borderline high 160-189 mg/dL: High >190 mg/dL: Very High CARDIAC RISK RATIO 4.4 3.3 - 4.4 C [facility] Blood 12/30/2023 8:24 AM EST 12/30/2023 8:26 AM EST us Michelle Castellanos MD LAB BLOOD ORDERABLES Fin al Result Performing Organization Address City/[facility]/ZIP Co de Phone Number [address] [address] * DIABETES EYE EXAM FOR RESULT ENTRY ONLY (12/03/2023 4:39 PM EST) Lisa Lawrence MD HEALTH MAINTENANCE Final Result * Hepatitis C antibody, qualitative (02/04/2022 11:06 AM EDT) HCV NON-REACTIV E NON-REACTI VE [facility] Blood 02/04/2022 11:0 6 AM EDT 02/04/2022 11:18 AM EDT us Michelle Castellanos MD LAB BLOOD ORDERABLES Fin al Result Performing Organization Address City/[facility]/ZIP Co de Phone Number [address] [address] from Last 3 Months or Most Recently Relevant to Health Maintenance Insurance [facility] [place] [address] [place] [id number] [facility] [facility] Care Teams Spray Stainer Relationship Specialty Start Date End Date Michelle Castellanos MD [email or web address] PCP - General Family Medicine 12/29/21 Sofy Rothman PA-C [address] [place] [id number] Physician Interviewing Clerk Hematology 07/05/22 Additional Source Comments The information contained in this document represents components of the legal health record. It is not the complete legal health record.[facility]
== END 2025-06-13 12:05 | disposition home or self-care (01) ==
LOC: HO.US 12:04
PROVIDERS: PCP Nurse Practitioner Family; Visit Provider Nurse Practitioner Family
DX: N12 Tubulo-interstitial nephritis, not specified as acute or chronic (principal); N39.0 Urinary tract infection, site not specified
CPT/HCPCS: 76770

== ENCOUNTER → 2025-06-13 12:07 | Outpatient (BNV) | payer OTHER, SELFPAY | PROVIDERS: PCP Nurse Practitioner Family; Visit Provider Radiology Diagnostic Radiology | DX: N28.1 Cyst of kidney, acquired (principal) | CPT/HCPCS: 76770 ==

== ENCOUNTER 2025-08-08 07:48 | Outpatient (AMB) | payer OTHER, SELFPAY ==
--- OUTSIDE RECORDS SUMMARY | 2025-08-08 07:51 | XMS_ITS | Clinical Summary ---
Author Organization [facility] Address [address] [place] [address] Phone Care Team Providers Care Drum Reel Cutter Name Role Phone Unavailable Primary Care Provider Unavailabl e Allergies No known active allergies Medications polyethylene glycol (MIRALAX) powder Take by mouth. 7 Active albuterol HFA (PROAIR HFA) 108 (90 BASE) MCG/ACT inhaler PROAIR HFA; inhale 2 puff by inhalation route every 4 - 6 hours as needed; 90 MCG; 12/06/2016; Active 7 Active norgestimate-ethi nyl estradiol (ORTHO-CYCLEN, 28,) 0.25-35 MG-MCG per tablet Take by mouth. 09/24/20 1 6 Active albuterol HFA 108 (90 BASE) MCG/ACT inhalerIndication s:Mild intermittent asthma in adult without complication Inhale 2 puffs every 4 (four) hours as needed for wheezing or shortness of breath. 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, hirsutism and abnormal insulin receptors 09/24/2016 Acne comedone 03/09/2011 Obesity 03/09/2011 Immunizations Immunization Administration Dates Next Due DTaP 5 10/01/2002, 9,1998,09/25,1998 HPV, Quadrivalent 03/09/2011,09/25/2009,07/24/20 09 Hep A, ped/adol 07/07/2015,04/17/2015,03/09/2011 Hep B, ped/adol 1998,1998,1998 Hib (PRP-T) 09/18/1999, 9,1998,06/17 IPV 10/01/2002 Influenza Split 10/08/2013,08/10/1999 Influenza, injectable, quadr ivalent, preservative free 08/26/2016,07/07/2015 Influenza, injectable, trivalent 07/24/2009,02/1999 Influenza, intranasal, trivalent 10/04/2012 MMR 10/01/2002,04/07/1999 Meningococcal Conj (Menactra) MCV4P 07/07/2015,0 07/24/2009 OPV 09/18/1999,1998,1998 Tdap 07/24/2009 Varicella 09/25/2009,08/10/1999 Family History Relation Name Status Comments Maternal Grandfather Materna l grandfather: Deafness, Diabetes mellitus Maternal Grandmother Materna l grandmother: Elevated cholesterol, Migraines Mother Mother: Migrain es, Obesity, Asthma Other Family history of Cancer, lung, Family history of Hypertension Social History Tobacco Use Types Packs/Day Years Used Date Smoking Tobacco: Never Smokeless Tobacco: Never Comments:Never smoker Comments Unknown Sex and Gender Information Value Date Recorded Sex Assigned at Not on file Legal Sex Female 5:06 PM EDT Gender Identity Not on file Sexual Orientation Not on file Last Filed Vital Signs Vital Sign Reading Time Taken Comments Blood Pressure 118/79 09/21/2017 5:51 PM EST Pulse 100 09/21/2017 5:51 PM EST Temperature 37.2 C (98.9 F) 09/21/2017 5:51 PM EST Respiratory Rate - - Oxygen Saturation - - Inhaled Oxygen Concentration - - Weight 116 kg (255 lb) 09/21/2017 5:51 PM EST Height 161.9 cm (5' 3.75 ) 09/24/2016 12:[address] Body Mass Index 44.11 09/24/2016 12:00 AM EST Plan of Treatment Health Maintenance Due Date Last Done Comments DTaP,Tdap,and Td Vaccines (7 - Td or Tdap) 07/24/2019 07/24/2009, 10/01/2002, 09/18/1999, Additional history exists Influenza Vaccines (#1) 2025 08/26/20 16, 07/07/2015, 10/08/2013, Additional history exists COVID-19 Vaccine ( season) 2025 Hepatitis B Vaccines Completed 1998, 1998, 1998 HIB Vaccines Completed 09/18/1999, 11/08, 1998, Additional history exists IPV Vaccines Completed 10/01/2002, 09/07, 1998, Additional history exists MMR Vaccines Completed 10/01/2002, 04/07/1999 Varicella Vaccines Completed 09/25/2009, 08/10/1999 HPV Vaccines Completed 03/09/2011, 09/07, 07/24/2009 Hepatitis A Vaccines Completed 07/07/2015, 04/17/2015, 03/09/2011 Meningococcal Vaccine Completed 07/07/2015, 009 Men B Vaccine Aged Out No longer elig ible based on patient's age to complete this topic Pneumococcal Vaccine Aged Out No long er eligible based on patient's age to complete this topic Procedures * Due to [place] H2HCare law, this organization might not be sharing sensitive test results. Procedure Name Priority Date/Time Associated Diagnosis Comments CHLAMYDIA AND GONORRHEA, AMPLIFIED Routine 05/16/2017 2:07 PM EDT from Last 3 Months or Most Recently Relevant to Health Maintenance Results * Due to [place] H2HCare law, this organization might not be sharing sensitive test results. * Chlamydia and Gonorrhoea, Amplified (05/16/2017 2:07 PM EDT) URINE CHLAMYDIA AMP PROBE NEGATIVE [facility] Comment: No Chlamydia Trachomatis RNA detected in this patient's sample (REFERENCE RANGE/NORMAL VALUE: NOT DETECTED) URINE GC AMP PROBE NEGATIVE [facility] Comment: No Neisseria Gonorrhoeae RNA detected in this patient's sample (REFERENCE RANGE/NORMAL VALUE: NOT DETECTED) NOTE: This test uses transcription manager-mediated amplification method to detect rRNA from C.Trachomatis and N.Gonorrhoeae. A negative result does not preclude infection. In the case of a negative urine result, testing of an endocervical(female) or urethral(male) specimen is recommended if there is high clinical suspicion of infection. Due to very high sensitivity of Nucleic Acid Amplification Test, false positive results may occur. Therefore, specimen handling is extremely important. In patients in whom the disease is unlikely, additional sample for testing should be considered after an initial positive result. The performance characteristics of this test have not been evaluated in children. The Aptima Combo2 assay is not intended for the evaluation of suspected sexual abuse or for other medico-legal indications. The ordering provider should assess if the patient had consensual sex without risk of sexual abuse. Consult the [facility] if needed. Contact phone number . Therapeutic failure or success cannot be determined with the Aptima Combo2 assay since nucleic acid may persist following appropriate antimicrobial therapy. The Centers for Disease Control and Prevention (CDC) recommends confirmatory retesting using culture or a different nucleic acid amplification test when positive results occur, if indicated. Testing performed or reported by [facility], a Service of , [address] [place] [address] [place] [id number] Lyle Mendoza MD, PhD, Paver Operator 05/16/2017 2:07 PM EDT Narrative [facility] - 05/16/2017 2:07 PM EDT URINE CHLAMYDIA GC AMP PROBE us Nicki Reed MD LAB MICROBIOLOGY - GENERAL O RDERABLES Final Result [facility] [address] [place] [address], from Last 3 Months or Most Recently Relevant to Health Maintenance Insurance [place]
--- OUTSIDE RECORDS SUMMARY | 2025-08-08 07:51 | XMS_ITS | Clinical Summary ---
Author Organization [facility] Address [address] [place] [address] Phone Care Team Providers Care Prepared Foods Production Team Member Name Role Phone Michelle Castellanos MD Primary Care Provider + Sofy Rothman PA-C Unavailable [phone] Allergies Active Allergy Reactions Criticality Noted Date Comments Venom-Honey Bee 05/22/2019 Medications albuterol 90 mcg/actuation inhaler Inhale 2 puffs into the lungs daily. 10/07/20 20 Active lancets 28 gauge MiscIndications: Type 2 diabetes mellitus without complication, without long-term current use of insulin 1 each by Miscellaneous route as needed. 100 each 3 12/29/19 23 Active blood-glucose sensor (FREESTYLE WENDY 3 SENSOR) DeviIndications: Type 2 diabetes mellitus with hyperglycemia, without long-term current use of insulin 1 Device by Miscellaneous route every 14 (fourteen) days. 6 each 3 07/19/20 23 Active metFORMIN (GLUCOPHAGE-XR) 500 MG 24 hr tabletIndication s:Type 2 diabetes mellitus without complication, without long-term current use of insulin Take 4 tablets (2,000 mg total) by mouth daily with breakfast. Start with 1 pill PO qbreakfast and after 2 weeks increase to 2 pills q breakfast 360 tablet 3 01/17/20 24 Active sertraline (ZOLOFT) 100 MG tabletIndication s:Severe episode of recurrent major depressive disorder, without psychotic features Take 1 tablet (100 mg total) by mouth daily. 90 tablet 1 05/09/20 24 Active VYVANSE 10 mg capsule 11/08/19 25 Active docusate sodium (COLACE) 100 MG capsule Take 1 capsule (100 mg total) by mouth 2 (two) times a day. 30 capsule 1 11/21/19 25 Active EPINEPHrine 0.3 mg/0.3 mL auto-injector Inject 0.3 mL (0.3 mg total) into the muscle as needed for anaphylaxis. 2 each 03/13/20 25 Active TRULICITY 4.5 mg/0.5 mL subcutaneous injectionIndicat ions:Type 2 diabetes mellitus with hyperglycemia, without long-term current use of insulin INJECT 0.5 ML (4.5 MG TOTAL) UNDER THE SKIN EVERY 7 DAYS. 6 mL 05/15/20 25 Active Active Problems Problem Noted Date Diagnosed [...] prevention, reasonable to manage expectantly for now. Amber will continue to track cycles and f/u [...] Type Department Care Team Description 05/13/2025 Refill [facility] [address] [place] [address] Michelle Castellanos MD Medication Refill from Last 3 Months Immunizations Immunization Administration Dates Next Due DTaP 10/01/2002, 9,1998,09/25,1998 [id number] 09/18/1999, 9,1998,06/17 HPV,quadrivalent 03/09/2011,09/25/2009, 9 Hepatitis A, [...] your housing situation today? I have nisa sing 02/02/2022 How many times have you move [...] 03/29/2024 12/30/2023, 07/08, 07/19/2023, Additional history exists DEPRESSION SCREENING 11/11/2024 11/11/2023, 11/11/19 DIABETIC EYE EXAM 12/03/2024 12/03/2023, , 06/18/2022 LIPID PANEL 12/30/2024 12/30/2023, 01/05, 01/17/2023, Additional history exists URINE MICROALBUMIN/CREATININE RATIO 01/11/2025 01/12/2024, 03/02/2023, 01/19/2023, Additional history exists BLOOD PRESSURE 05/21/2025 11/21/2024 INFLUENZA VACCINE (#1) 2025 , 08/26/2016, 07/07/2015, Additional history exists COVID-19 VACCINE ( season) 2025 05/07/2021, 04/09/2021 CREATININE LEVEL 01/10/2026 01/10/2025, , 01/17/2023, Additional [...] (BMI) of 40.0 to 44.9 in adult [facility] DIABETES EYE EXAM FOR RESULT ENTRY ONLY Routine 12/03/2023 4:39 PM EST HEPATITIS C ANTIBODY, QUALITATIVE Routine 02/04/2022 11:06 AM EDT Need for hepatitis C screening test Annual physical exam from Last 3 Months or Most Recently Relevant to Health Maintenance Results * (ABNORMAL) Comprehensive metabolic panel (01/10/2025 9:20 AM EST) SODIUM 139 133 - 146 mmol/L [facility] POTASSIUM 4.2 3.3 - 5.1 mmol/L [facility] CHLORIDE 103 96 - 108 mmol/L [facility] CO2 26 21 - 35 mmol/L [facility] BUN 10 6 - 19 mg/dL [facility] CREATININE 0.60 0.5 - 1.5 mg/dL [facility] GLUCOSE 211(H) 70 - 99 mg/dL [facility] ALBUMIN 3.9 3.9 - 4.8 g/dL [facility] TOTAL PROTEIN 7.2 6.5 - 8.0 g/dL [facility] CALCIUM 8.9 8.4 - 10.3 mg/dL [facility] ALKALINE PHOSPHATASE 67 39 - 117 U/L [facility] TOTAL BILIRUBIN 0.5 0.0 - 1.2 mg/dL [facility] AST 28 0 - 37 U/L [facility] ALT 60(H) 0 - 40 U/L [facility] GLOBULIN 3.3 1 - 4.8 g/dL [facility] EGFR >120 >59 mL/min/1.7 3m2 [facility] Comment:Estimated glomerular filtration rate calculated using the CKD-EPI refit equation. ANION GAP 14 10 - 20 mmol/L [facility] Blood 01/10/2025 9:20 AM EST 01/10/2025 9:22 AM EST us Sharona Ramos NP LAB BLOOD ORDERABLES Anastasia anthony Result Performing Organization Address [facility] Co de Phone Number [address] [address] * Pap Test (06/27/2024 12:00 AM EDT) 06/27/2024 06/28/2024 10: 33 AM EDT Narrative SEE NARRATIVE - 07/02/2024 3:26 PM EDT [address] [address] Asbestos Hazard Abatement Worker: Margot Cason MD TURBINE ATTENDANT Cytology Report FINAL DIAGNOSIS A. PAP SMEAR (THIN PREP) CE: SPECIMEN ADEQUACY: Satisfactory for evaluation; transformation zone present. INTERPRETATION: NEGATIVE FOR INTRAEPITHELIAL LESION OR MALIGNANCY. Due to blood, the specimen was reprocessed with 10% Glacial Acetic Acid. This specimen was analyzed by the automated ThinPrep Imaging System ([employer].) and manually rescreened by a manager stone and/or pathologist. Electronically Signed Out By: ANN [...] PAP SMEAR (THIN PREP) CE Patient Name: AMBER ARZOLA : 2000 (Age: 24) Sex: F Institution: [facility] Location: [facility] Date of Collection: 06/27/2024 Date of Reported: 07/02/2024 15:26 Results to: Edna Naidu MD us Edna Naidu MD CYTOLOGY ORDERABLES Final Res ult Performing Organization Address City/[facility]/ZIP Co de Phone Number SEE NARRATIVE * Microalbumin/creatinine ratio, random urine (01/12/2024 8:05 AM EST) URINE MICROALBUMIN <1.2 0 - 2.3 mg/dL [facility] URINE CREATININE 175 mg/dL [facility] MICROALB/CRE RATIO NOT CALCULATED 0 - 20 mg/g Cre [facility] Comment:due to Microalbumin <1.2 Urine (Urine) 01/12/2024 8:0 5 AM EST 01/12/2024 8:09 AM EST us Michelle Castellanos MD URINE ORDERABLES Final R esult Performing Organization Address City/[facility]/ZIP Co de Phone Number [address] [address] * (ABNORMAL) Hemoglobin A1c (12/30/2023 8:24 AM EST) HEMOGLOBIN A1C 9.0(H) 4.3 - 5.8 % [facility] Blood 12/30/2023 8:24 AM EST 12/30/2023 8:26 AM EST us Michelle Castellanos MD LAB BLOOD ORDERABLES Fin al Result Performing Organization Address [facility] Co de Phone Number [address] [address] * (ABNORMAL) Lipid panel (12/30/2023 8:24 AM EST) HDL 49 mg/dL [facility] Comment: Interpretation <40 mg/dL: Low HDL cholesterol (major risk factor for CHD) Greater than or equal to 60 mg/dL: High HDL cholesterol ( negative risk factor for CHD) HDL - cholesterol is affected by a number of factors, e.g. smoking, excerise, hormones, sex and age. CHOLESTEROL 216 0 - 240 mg/dL [facility] TRIGLYCERIDES 118 30 - 160 mg/dL [facility] LDL 143(H) 50 - 129 mg/dL [facility] Comment: LDL levels in terms of risk for coronary heart disease: <100 mg/dL: Optimal 100-129 mg/dL: Near or above optimal 130-159 mg/dL: Borderline high 160-189 mg/dL: High >190 mg/dL: Very High CARDIAC RISK RATIO 4.4 3.3 - 4.4 C [facility] Blood 12/30/2023 8:24 AM EST 12/30/2023 8:26 AM EST Michelle Castellanos MD LAB BLOOD ORDERABLES Fin al Result Performing Organization Address [facility] Co de Phone Number [address] [address] * DIABETES EYE EXAM FOR RESULT ENTRY ONLY (12/03/2023 4:39 PM EST) us Lisa Lawrenec MD HEALTH MAINTENANCE Final Result * Hepatitis C antibody, qualitative (02/04/2022 11:06 AM EDT) HCV NON-REACTIV E NON-REACTI VE [facility] Blood 02/04/2022 11:0 6 AM EDT 02/04/2022 11:18 AM EDT us Michelle Castellanos MD LAB BLOOD ORDERABLES Fin al Result Performing Organization Address [facility] de Phone Number [address] [address] from Last 3 Months or Most Recently Relevant to Health Maintenance Insurance [facility]CO [facility] [place] [address] [place] [address] [place] [address] [place] [address] ACO Care Teams Prepared Foods Production Team Member Relationship Specialty Start Date End Date Michelle Castellanos MD PCP - General Family Medicine 12/29/21 Sofy Rothman PA-C [address] [place] [id number] [email or web address] Physician Patient Services Technician Hematology 07/05/22 Additional Source Comments The information contained in this document represents components of the legal health record. It is not the complete legal health record.[facility]
--- OUTSIDE RECORDS SUMMARY | 2025-08-08 07:51 | XMS_ITS | Encounter Summary ---
Author Organization [facility] Address [address] [place] [address] Phone Care Team Providers Care Canvas Products Sales Representative Name Role Phone Unavailable Primary Care Provider Unavailabl e Encounter Details Date Type Department Care Team (Late st Contact Info) Description 02/13/2016 Documentation [facility] [place] [address] [place] [address] Family Medicine, Physician [address] [place] [address] Social History Tobacco Use Types Packs/Day Years [...]
--- OUTSIDE RECORDS SUMMARY | 2025-08-08 07:51 | XMS_ITS | Encounter Summary ---
Author Organization [facility] Address [address] [place] [address] Phone Care Team Providers Care International Nurse Name Role Phone Unavailable Primary Care Provider Unavailabl e Encounter Details Date Type Department Care Team (Late st Contact Info) Description 06/23/2017 Conversion Encounter [facility] - [address] [address] Social History Tobacco Use Types Packs/Day Years Used Date Smoking Tobacco: Never Comments:Never smoker Comments Unknown Sex [...]
--- OUTSIDE RECORDS SUMMARY | 2025-08-08 07:51 | XMS_ITS | Encounter Summary ---
Author Organization [facility] Address [address] [place] [address] Phone Care Team Providers Care Computer Numerical Control Machinist Name Role Phone Unavailable Primary Care Provider Unavailabl e Reason for Visit * Reason Comments Med Refill Encounter Details Date Type Department Care Team (Late st Contact Info) Description 06/10/2018 Refill [facility] [place] [address] [place] [address] Nicki Reed MD [address] [place] [address] Encounter for surveillance of contraceptive pills (Primary Dx) Social History Tobacco Use Types Packs/Day Years Used Date Smoking Tobacco: Never Smokeless Tobacco: Never Comments:Never smoker Comments Unknown Sex and Gender Information Value Date Recorded Sex Assigned at Not on file Legal Sex Female 5:06 PM EDT Gender Identity Not on file Sexual Orientation Not on file documented as of this encounter Miscellaneous Notes * Telephone Encounter - Vanessa Silva LPN - 06/12/2018 10:09 AM EDT Pharm fax refill request OCP. Last Rx was written 05/2107 1 with 6 refills. I called pharm for fill Hx. Pt had refills left from a 2016 Rx for 12 mos and did not start most current Rx until 11/24. Pt is overdue for PE, last PE 09/24/16. VM left asking pt to call. Could you send for a couple of monthsuntil pt seen for PE. EH documented in this encounter Plan of Treatment Not on file documented as of this encounter Visit Diagnoses Diagnosis Encounter for surveillance of contraceptive pills- Primary documented in this encounter
--- OUTSIDE RECORDS SUMMARY | 2025-08-08 07:52 | XMS_ITS | Encounter Summary ---
Author Organization [facility] Address [address] [place] [address] Phone Care Team Providers Care Hardwood Faller Name Role Phone Unavailable Primary Care Provider Unavailabl e Encounter Details Date Type Department Care Team (Late st Contact Info) Description 02/07/2015 [place] [facility] [place] [address] [place] [address] Family Medicine, Physician [address] [place] [address] Social History Tobacco Use Types Packs/Day Years [...]
--- OUTSIDE RECORDS SUMMARY | 2025-08-08 07:52 | XMS_ITS | Encounter Summary ---
Author Organization [facility] Address [address] [place] [address] Phone Care Team Providers Care Manager Quality Systems Name Role Phone Unavailable Primary Care Provider Unavailabl e Encounter Details Date Type Department Care Team (Late st Contact Info) Description 09/07/2013 Documentation [facility] [place] [address] [place] [address] Family Medicine, Physician [address] [place] [address] Social History Tobacco Use Types Packs/Day Years [...]
--- OUTSIDE RECORDS SUMMARY | 2025-08-08 07:52 | XMS_ITS | Encounter Summary ---
Author Organization [facility] Address [address] [place] [address] Phone Care Team Providers Care Restaurant Maintenance Technician Name Role Phone Michelle Castellanos MD Primary Care Provider + Sofy Rothman PA-C Unavailable [phone] Encounter Details Date Type Department Care Team (Late st Contact Info) Description 01/14/2025 Procedure Pass [facility] Admitting Dept Virtual Department [address] [place] [address] Social History Tobacco Use Types Packs/Day Years [...] Orientation Bisexual 02/02/2022 3: 11 PM EDT documented as of this encounter Plan of Treatment Not on file documented as of this encounter Visit Diagnoses Not on filedocumented in this encounter Additional Health Concerns Assessment Noted Time PHQ-9 Depression Total Score: 17 024 10:37 AM EST PHQ-2 Depression Total Score: 3 11/11/19 24 10:37 AM EST documented as of this encounter Care Teams Restaurant Maintenance Technician Relationship Specialty Start Date End Date Michelle Castellanos MD PCP - General Family Medicine 12/29/21 Sofy Rothman PA-C [address] [place] [address] Physician Second Rigger Hematology 07/05/22 documented as of this encounter Additional Source Comments The information contained in this document represents components of the legal health record. It is not the complete legal health record.[facility]
--- OUTSIDE RECORDS SUMMARY | 2025-08-08 07:52 | XMS_ITS | Encounter Summary ---
Author Organization [employer] [facility] Address [address] [place] [address] Phone Care Team Providers Care Auto Parts Counter Person Name Role Phone Michelle Castellanos MD Primary Care Provider + Sofy Rothman PA-C Unavailable [phone] Encounter Details Date Type Department Care Team (Late st Contact Info) Description 07/19/2023 Procedure Pass [facility] [address] [place] [address] Social History Tobacco Use Types Packs/Day Years [...] Answer Date Recorded Are you interested in help w ith more adult education (for example, completing high school, GED, job training, learning the [place] language, technical skills, or developing parenting skills)? No 02/02/2022 Food Answer Date Recorded Within the past [...] Assessment Noted Time PHQ-9 Depression Total Score: 14 023 8:06 AM EDT PHQ-2 Depression Total Score: 3 07/19/20 23 8:06 AM EDT documented as of this encounter Care Teams Auto Parts Counter Person Relationship Specialty Start Date End Date Michelle Castellanos MD PCP - General Family Medicine 12/29/21 Sofy Rothman PA-C [address] [place] [id number] Physician Director Channel Hematology 07/05/22 documented as of this encounter Additional Source Comments The information contained in this document represents components of the legal health record. It is not the complete legal health record.[facility]
--- OUTSIDE RECORDS SUMMARY | 2025-08-08 07:52 | XMS_ITS | Encounter Summary ---
Author Organization [facility] Address [address] [place] [address] Phone Care Team Providers Care Express Clerk Name Role Phone Unavailable Primary Care Provider Unavailabl e Encounter Details Date Type Department Care Team (Late st Contact Info) Description 02/07/2015 Documentation [facility] Family Medicine [address] [place] [address] Family Medicine, Physician [address] [place] [address] Social History Tobacco Use Types Packs/Day Years [...]
--- NOTE | 2025-08-08 07:57 | MHC.OFFVIS ---
Intake Visit Reasons: recurrent UTI/ renal cyst Intake Note: New Patient is present for renal cyst and Recurrent UTI Urology Rx:none PVR: Blood Thinners:none Imaging completed: renal ultrasound 06/13/25 today's PVR: 35mls Hydrographic Surveyor Required: No Accompanied by: Self / Same As Patient Allergies bee pollen (BEE STINGS) Allergy (Unknown, Verified 08/08/25 09:25) LEGS SWELL UP poppyseed oil (POPPYSEED OIL) Allergy (Unknown, Verified 08/08/25 09:25) ITCHY THROAT Medication List - Last Reconciled 08/08/25 by BETHANY Elam- albuterol sulfate 90 mcg/actuation 2 inhalations inhalation Q6H PRN ammonium lactate 12% 1 appl topical DAILY ascorbic acid (vitamin C) 1 g PO DAILY 90 days dulaglutide (Trulicity) 4.5 mg subcut QWEEK epinephrine (EpiPen 2-Nhan) 0.3 mg (0.3 mL) IM Q10M PRN famotidine 40 mg PO BID lisdexamfetamine (Vyvanse) 10 mg PO DAILY metformin ER 1,000 mg (2 x 500 mg) PO DAILY methenamine hippurate 1 g PO DAILY 90 days polyethylene glycol 3350 (Miralax) 17 grams PO BID PRN sertraline 100 mg PO DAILY HPI Comments Details: Mary Ellen is a pleasant 25 year old female patient of Dr. Rene who was accompanied by her mom at today's office visit. She has a past medical history of fatty liver, diabetes, PCOS, asthma, anxiety, and depression. She presents to the office today as a new patient for her longstanding history of recurrent urinary tract infections. In discussion with the patient and her mom today she reports since a very young age she has been having recurrent urinary tract infections. She describes having workup of VCUG when a child that was noted to be within normal limits. She denies ever having followed up with a urologist in the past. She reports having establish new PCP care at which time recommendations were made for urology referral for further assessment evaluation. Recent retroperitoneal ultrasound results were reviewed with the patient and her mom today. 07/01 bilateral kidneys with no hydronephrosis or renal calculi. 10 mm simple cyst in the interpolar region of the left kidney. The urinary bladder is unremarkable. Postvoid bladder volume 25 mL. In office urinalysis results reviewed with the patient today. PVR 35 mL. In review of chart it appears patient with previous urine cultures noting mixed bacteria. When asked she does report a longstanding history of bowel issues with constipation as well as diarrhea. She reports following up with a machine sweeper brush maker in his undergoing further management of IBS. We did discussed at length potential causes of renal cysts as well as recurrent urinary tract infections. We discussed further treatment options and risks and benefits of these treatment options. All questions were answered. She currently denies any UTI like symptoms. She denies incontinence, nocturia, hematuria, dysuria, foul smelling urine, changes to urinary stream, flank pain, fever, and or chills. She otherwise offers no other issues or concerns at this time. [facility] Medical History Anxiety and depression Fatty liver Asthma Diabetes PCOS (polycystic ovarian syndrome) Surgical History (Updated 05/14/25 @ 08:02 by Alison Carbajal [facility]) Hx of wisdom tooth extraction Hx of colonoscopy (~01/2025) H/O endoscopy (~01/2025) Family History (Updated 04/10/25 @ 12:48 by Denis Roche MA) Father Substance abuse Mother Asthma Diabetes Maternal Grandmother Asthma Breast cancer Social History (Updated 04/10/25 @ 12:47 by Denis Roche MA) Household Members: Family Both parents involved: No Caregiver staying overnight: No Housing: House Are you a primary wound care technician to a significant other at home: No Do you presently have visiting nurse or other home services: No 75 years or older and lives alone: No Alcohol intake: current Alcohol intake frequency: holidays/special occasions only Patient Tobacco Use Status: Never used Tobacco e-Cigarette/Vaping Use: Never Used Second Hand Smoke Exposure: No Substance Use Type: Marijuana Current occupational status: employed 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 Cognitive needs: No Hearing needs: Yes (right ear) Vision needs: Yes (wear glasses) Review of Systems Const All systems reviewed & are unremarkable except as noted in HPI and below Physical Exam Const General: cooperative, healthy appearing, comfortable, no acute distress, well developed, alert and awake Nutritional Appearance: overweight Orientation/consciousness: patient oriented x3 Limitations: no limitations HEENT Head: Yes normal to inspection, Yes normocephalic and Yes atraumatic Ears: hearing grossly normal bilaterally Eyes General: appearance normal, both eyes and all related structures Neck Neck: Yes normal visual inspection and Yes trachea midline Chest Chest palpation & inspection: normal inspection of the chest Resp Effort & Inspection: normal respiratory effort and able to speak in complete sentences Cardio Rate: regular rate GI Inspection: Yes normal to inspection General: Yes no CVA tenderness Back/Spine/Pelvis Back: no CVA tenderness Skin General skin exam: no rashes or lesions noted Neuro General: patient oriented x3 Extrem General: Yes normal to inspection Psych Appearance: grossly normal and well kempt Mental Status: mental status grossly normal Speech and movement: Normal speech and movement present and Clear speech present Affect: normal affect Attitude: cooperative Thought process: Normal thought process present Thought content: Normal thought content present Insight: Fair insight present (Psych) Judgement: Fair judgement present (Psych) Office Procedures Post Void Residual Post Residual Void Post Void Residual (PVR): 35 [id number] Void Residual by ultrasound Results AMB Urinalysis, Automated UA Leukoctes 0 Lilibeth/uL Last Edit by HARRIS Razo on 08/08/25 08:12 UA Nitrite Last Edit by HARRIS Razo on 08/08/25 08:12 UA Urobilinogen 0.2 mg/dL Last Edit by HARRIS Razo on 08/08/25 08:12 UA Protein 15 mg/dL Last Edit by HARRIS Razo on 08/08/25 08:12 UA pH 5.5 Last Edit by HARRIS Razo on 08/08/25 08:12 UA Blood 0 Juan/uL Last Edit by HARRIS Razo on 08/08/25 08:12 UA Specific [place]latch 1.020 Last Edit by HARRIS Razo on 08/08/25 08:12 UA Ketone Last Edit by HARRIS Razo on 08/08/25 08:12 UA Bilirubin 0 mg/dL Last Edit by HARRIS Razo on 08/08/25 08:12 UA Glucose 1000 mg/dL Last Edit by HARRIS Razo on 08/08/25 08:12 Results Reviewed Results Reviewed: Laboratory Last Values Urine pH (Auto) 5.5 08/08/25 08:11 Specific [place]latch (Auto) 1.020 08/08/25 08:11 Urine Protein (Auto) 15 mg/dL 08/08/25 08:11 Glucose (UA)(Auto) 1000 mg/dL 08/08/25 08:11 Urine Blood (Auto) 0 Juan/uL 08/08/25 08:11 Urine Bilirubin (Auto) 0 mg/dL 08/08/25 08:11 Urine Urobilinogen (Auto) 0.2 mg/dL 08/08/25 08:11 Leukocyte Esterase (Auto) 0 Lilibeth/uL 08/08/25 08:11 Date of Service: 06/13/25 Procedure(s): US retroperitoneal comp FINDINGS: Right kidney: The right kidney measures 11.6 x 5.7 x 6.4 cm. Renal parenchymal echotexture and thickness are normal. There are no masses. There is no hydronephrosis or renal calculi. Left Kidney: The left kidney measures 12.5 x 5.6 x 6.6 cm. Renal parenchymal echotexture and thickness are normal. There is a 10 mm cyst in the interpolar region. There is no hydronephrosis or renal calculi. The urinary bladder is unremarkable. Bilateral ureteral jets are identified. Before voiding, the urinary bladder measured 10.0 x 15.4 x 8.2 cm, for an estimated volume of 661 mL. After voiding, the urinary bladder measured 4.0 x 3.3 x 3.6 cm, for an estimated volume of 25 mL. IMPRESSION: 10 mm left renal cyst. Otherwise unremarkable retroperitoneal ultrasound. Post void bladder residual 25 mL. Assessment & Plan Assessment & Plan (1) Renal cyst, left: [place] Date: ~06/2025 Comment: 06/2025 10 mm left renal cyst. Otherwise unremarkable retroperitoneal ultrasound. Post void bladder residual 25 mL. Code(s): N28.1 - Cyst of kidney, acquired Category: Medical (2) Recurrent UTI: Code(s): N39.0 - Urinary tract infection, site not specified Category: Medical Plan In office urinalysis results with the patient today; as noted above. PVR 35 mL. Recent retroperitoneal ultrasound results reviewed with the patient today; as noted above. We discussed potential causes of renal cysts as well as recurrent urinary tract infections; we discussed further interventions and risks and benefits of these interventions. Discussed UTI prevention with D mannose supplement, vitamin-C, increasing fluid intake, behavioral therapy with timed voiding, perineal hygiene and postcoital voiding, and management of constipation with stool softeners and increased fiber intake. We discussed the importance of management in bowel issues in relation to recurrent urinary tract infections. Start methenamine and vitamin-C as discussed and prescribed. We did discussed potential near future in office cystoscopy for further assessment evaluation. All questions were answered. Follow-up in 3-6 months with PVR; or sooner with any issues, concerns Orders: Orders AMB Urinalysis Automated Today Z13.9 - Encounter for screening, unspecified AMB Post Void Residual by ultrasound Today N39.0 - Urinary tract infection, site not specified Medications: New methenamine hippurate 1 g PO DAILY 90 tabs 1RF 90 days N39.0 - Urinary tract infection, site not specified ascorbic acid (vitamin C) 1 g PO DAILY 90 tabs 1RF 90 days N39.0 - Urinary tract infection, site not specified Patient Instructions: The patient had an opportunity to ask questions regarding the treatment plan. All questions were answered. Physical exam, labs, and imaging were discussed and reviewed in detail. As well as risks, benefits, and discussion of treatment choices. No major barriers to understanding were identified. The patient expressed understanding and agreement with the above treatment plan. The patient was made aware they should contact our office by phone for worsening of their current condition, the appearance of new symptoms, or with any questions or concerns. Compliance is encouraged with any medications and follow up testing that is ordered. It is a privilege to be allowed the opportunity to participate in? your urological care.? Again, if you have any questions or concerns If you have any questions or concerns please do not hesitate to contact me. The office is [phone]. This note is constructed using voice recognition software. While every effort has been made to ensure accuracy rv technician errors may have been included. Yours sincerely, KHALIF Elam Coding Level of Care Code New Pt Level 4 (39325) Diagnoses Renal cyst, left N28.1 Recurrent UTI N39.0 CPT Codes Post Residual Void - PVR CPT Code: 78444-Pjzq Void Residual by ultrasound ([id number])
== END 2025-08-08 08:40 | disposition home or self-care (01) ==
LOC: HO.HUSH 07:49
PROVIDERS: PCP Nurse Practitioner Family; Visit Provider Nurse Practitioner Family
DX: N28.1 Cyst of kidney, acquired (principal); N39.0 Urinary tract infection, site not specified; Z13.9 Encounter for screening, unspecified
CPT/HCPCS: 99204

== ENCOUNTER → 2025-08-08 07:48 | Outpatient (BNVA) | payer OTHER, SELFPAY | PROVIDERS: PCP Nurse Practitioner Family; Visit Provider Nurse Practitioner Family | DX: N28.1 Cyst of kidney, acquired (principal); N39.0 Urinary tract infection, site not specified | CPT/HCPCS: 51798; 81003; 99202 ==

== ENCOUNTER 2025-10-14 07:40 | Outpatient (AMB) | payer OTHER, SELFPAY ==
--- OUTSIDE RECORDS SUMMARY | 2025-10-14 07:44 | XMS_ITS | Clinical Summary ---
Author Organization [facility] Address [address] [place] [phone] Phone Care Team Providers Care Latex Thread Machine Operator Name Role Phone Unavailable Primary Care Provider [...] complete this topic Procedures * Due to [place] [employer] law, this organization might not be sharing sensitive test results. Procedure Name Priority Date/Time Associated Diagnosis Comments CHLAMYDIA AND GONORRHEA, AMPLIFIED Routine 05/16/2017 2:07 PM EDT from Last 3 Months or Most Recently Relevant to Health Maintenance Results * Due to [place] [employer] law, this organization might not be sharing sensitive test results. * Chlamydia and Gonorrhoea, Amplified (05/16/2017 2:07 PM EDT) URINE CHLAMYDIA AMP PROBE NEGATIVE [facility] Comment: No Chlamydia Trachomatis RNA detected in this patient's sample (REFERENCE RANGE/NORMAL VALUE: NOT DETECTED) URINE GC AMP PROBE NEGATIVE [facility] Comment: No Neisseria Gonorrhoeae RNA detected in this patient's sample (REFERENCE RANGE/NORMAL VALUE: NOT DETECTED) NOTE: This test uses necktie maker-mediated amplification method to detect rRNA from C.Trachomatis [...] without risk of sexual abuse. Consult the [facility] if needed. Contact phone number . Therapeutic failure or success cannot be determined with the Aptima Combo2 assay since nucleic acid may persist following appropriate antimicrobial therapy. The Centers for Disease Control and Prevention (CDC) recommends confirmatory retesting using culture or a different nucleic acid amplification test when positive results occur, if indicated. Testing performed or reported by [facility], a Service of [facility], [address] [place] [address] [place] [id number] Lyle Mendoza MD, PhD, Public Transit Bus Driver 05/16/2017 2:07 PM EDT Narrative [facility] - 05/16/2017 2:07 PM EDT URINE CHLAMYDIA GC AMP PROBE us Nicki Reed MD LAB MICROBIOLOGY - GENERAL O RDERABLES Final Result [facility] [address] [place] [address], from Last 3 Months or Most Recently Relevant to Health Maintenance Insurance [place]
--- OUTSIDE RECORDS SUMMARY | 2025-10-14 07:44 | XMS_ITS | Clinical Summary ---
Author Organization [facility] Address [address] [place] [phone] Phone Care Team Providers Care Hazmat Cdl Driver Name Role Phone Michelle Castellanos MD Primary Care Provider + Sofy Rothman PA-C Unavailable [phone] Allergies Active Allergy Reactions Criticality Noted Date [...] reaching goal Continue carb-controlled diet and walking Immunizations Immunization Administration Dates Next Due DTaP 10/01/2002, 9,1998,09/25,1998 [id number] 09/18/1999, 9,1998,06/17 HPV,quadrivalent 03/09/2011,09/25/2009, 9 Hepatitis A, [...] 11/21/2024 10:16 AM EST Plan of Treatment Upcoming Encounters Date Type Department Care Team (Late st Contact Info) Description 10/14/2025 4:10 PM EST Office Visit [facility] [address] [place] [address] [place] [address] Edna Naidu MD [address] [facility] [address], [address] [place] [address] [email or web address] Health Maintenance Due Date Last Done Comments HEMOGLOBIN A1C 03/29/2024 12/30/2023, 07/08, 07/19/2023, Additional history exists DEPRESSION SCREENING 11/11/2024 11/11/2023, 11/11/19 24 DIABETIC EYE EXAM 12/03/2024 12/03/2023, , 06/18/2022 [...] 03/09/2011 MENINGOCOCCAL VACCINES (ACWY) Completed 07/07/2015, 07/24/2009 HIV ONE-TIME SCREENING (18-65 YEARS) Completed 02/04/2022 HEPATITIS C SCREENING Completed 05/18/2022 , 05/18/2022, 02/04/2022, Additional history exists PNEUMOCOCCAL VACCINES (0-49 years) Completed 05/18/2023 SMOKING STATUS SCREENING (Once After 26 Yrs) Completed 01/14/2025 MENINGOCOCCAL VACCINES (B) Aged Out N o longer eligible based on patient's age to complete this topic Medical Devices Not on file Procedures Procedure Name Priority Date/Time Associated Diagnosis Comments COMPREHENSIVE METABOLIC PANEL (CMP) Routine 01/10/2025 9:20 AM EST Gastroesophageal reflux [...] ONLY Routine 12/03/2023 4:39 PM EST HEPATITIS B CORE ANTIBODY, TOTAL Routine 05/18/2022 2:31 PM EDT Transaminitis from Last 3 Months or Most Recently Relevant to Health Maintenance Results * (ABNORMAL) Comprehensive metabolic panel (01/10/2025 9:20 AM EST) SODIUM 139 133 - 146 mmol/L [facility] POTASSIUM 4.2 3.3 - 5.1 mmol/L [facility] CHLORIDE 103 96 - 108 mmol/L [facility] CO2 26 21 - 35 mmol/L [facility] BUN 10 6 - 19 mg/dL [facility] CREATININE 0.60 0.5 - 1.5 mg/dL [facility] GLUCOSE 211(H) 70 - 99 mg/dL [facility] ALBUMIN 3.9 3.9 - 4.8 g/dL [facility] TOTAL PROTEIN 7.2 6.5 - 8.0 g/dL [facility] CALCIUM 8.9 8.4 - 10.3 mg/dL [facility] ALKALINE PHOSPHATASE 67 39 - 117 U/L [facility] TOTAL BILIRUBIN 0.5 0.0 - 1.2 mg/dL [facility] AST 28 0 - 37 U/L [facility] ALT 60(H) 0 - 40 U/L [facility] GLOBULIN 3.3 1 - 4.8 g/dL [facility] EGFR >120 >59 mL/min/1.7 3m2 [facility] Comment:Estimated glomerular filtration rate calculated using the CKD-EPI refit equation. ANION GAP 14 10 - 20 mmol/L [facility] Blood 01/10/2025 9:20 AM EST 01/10/2025 9:22 AM EST Sharona Childs Rachel TOW MOTOR MECHANIC LAB BLOOD BKR ORDERABLES Final Result [address] [id number] * Pap Test (06/27/2024 12:00 AM EDT) Report [address] [address] Information Technology Officer: Margot Cason MD COPPERSMITH APPRENTICE Cytology Report FINAL DIAGNOSIS A. PAP SMEAR (THIN PREP) CE: SPECIMEN ADEQUACY: Satisfactory for evaluation; transformation zone present. INTERPRETATION: NEGATIVE FOR INTRAEPITHELIAL LESION OR MALIGNANCY. Due to blood, the specimen was reprocessed with 10% Glacial Acetic Acid. This specimen was analyzed by the automated ThinPrep Imaging System (Gojimo Shu.) and manually rescreened by a tank stave assembler and/or pathologist. Electronically Signed Out By: ANN [...] : 2000 (Age: 24) Sex: F Institution: [facility] Location: [facility] Date of Collection: 06/27/2024 Date of Reported: 07/02/2024 15:26 Results to: Edna Naidu MD [facility] Final Diagnosis A. PAP SMEAR (THIN PREP) CE: SPECIMEN ADEQUACY: Satisfactory for evaluation; transformation zone present. INTERPRETATION: NEGATIVE FOR INTRAEPITHELIAL LESION OR MALIGNANCY. Due to blood, the specimen was reprocessed with 10% Glacial Acetic Acid. This specimen was analyzed by the automated ThinPrep Imaging System (ishBowl.) and manually rescreened by a tank stave assembler and/or pathologist. [facility] Conversion Type (Conversion Source) 06/27/2024 06/28/2024 10:33 AM EDT us Edna Naidu MD CYTOLOGY ORDERABLES Edited Re sult - Final Performing Organization Address [facility] Co de Phone Number [address] [address] * Microalbumin/creatinine ratio, random urine (01/12/2024 8:05 AM EST) URINE MICROALBUMIN <1.2 0 - 2.3 mg/dL [facility] URINE CREATININE 175 mg/dL [facility] MICROALB/CRE RATIO NOT CALCULATED 0 - 20 mg/g Cre [facility] Comment:due to Microalbumin <1.2 Urine (Urine) 01/12/2024 8:0 5 AM EST 01/12/2024 8:09 AM EST us Michelle Castellanos MD LAB URINE ORDERABLES Fin al Result Performing Organization Address [facility] Co de Phone Number [address] [address] * (ABNORMAL) Hemoglobin A1c (12/30/2023 8:24 AM EST) HEMOGLOBIN A1C 9.0(H) 4.3 - 5.8 % [facility] Blood 12/30/2023 8:24 AM EST 12/30/2023 8:26 AM EST us Michelle Castellanos MD LAB BLOOD BKR ORDERABLES Final Result Performing Organization Address [facility] Co de Phone Number [address] [address] * (ABNORMAL) Lipid panel (12/30/2023 8:24 AM EST) HDL 49 mg/dL [facility] Comment: Interpretation <40 mg/dL: Low HDL cholesterol (major risk factor for CHD) Greater than or equal to 60 mg/dL: High HDL cholesterol ( negative risk factor for CHD) HDL - cholesterol is affected by a number of factors, e.g. smoking, excerise, hormones, sex and age. CHOLESTEROL 216 0 - 240 mg/dL [facility] TRIGLYCERIDES 118 30 - 160 mg/dL [facility] LDL 143(H) 50 - 129 mg/dL [facility] Comment: LDL levels in terms of risk for coronary heart disease: <100 mg/dL: Optimal 100-129 mg/dL: Near or above optimal 130-159 mg/dL: Borderline high 160-189 mg/dL: High >190 mg/dL: Very High CARDIAC RISK RATIO 4.4 3.3 - 4.4 [facility] Blood 12/30/2023 8:24 AM EST 12/30/2023 8:26 AM EST Michelle Castellanos MD LAB BLOOD BKR ORDERABLES Final Result Performing Organization Address City/State/[facility] Co de Phone Number [facility] [address] [place] [address] * DIABETES EYE EXAM FOR RESULT ENTRY ONLY (12/03/2023 4:39 PM EST) us Historical Provider HEALTH MAINTENANCE Final Result * Hepatitis B core antibody, total (05/18/2022 2:31 PM EDT) HEP B CORE AB, TOT NON-REACTI VE NON-REACTI VE [facility] Blood 05/18/2022 2:31 PM EDT 05/18/2022 2:33 PM EDT Michelle Castellanos MD LAB BLOOD BKR ORDERABLES Final Result [facility] [address] [place] [address] from Last 3 Months or Most Recently Relevant to Health Maintenance [place] [address] [place] [address] [place] [address] [place] [address] [place] [address] [place] [address] [place] [address] ACO Care Teams Hazmat Cdl Driver Relationship Specialty Start Date End Date Michelle Castellanos MD [email or web address] PCP - General Family Medicine 12/29/21 Sofy Rothman PA-C [address] [place] [phone] [email or web address] Physician Senior Information Developer Hematology 07/05/22 Additional Source Comments The information contained in this document represents components of the legal health record. It is not the complete legal health record.[facility]
--- OUTSIDE RECORDS SUMMARY | 2025-10-14 07:44 | XMS_ITS | Encounter Summary ---
Author Organization [facility] Address [address] [place] [phone] Phone Care Team Providers Care Hotel General Manager Name Role Phone Michelle Castellanos MD Primary Care Provider + Sofy Rothman PA-C Unavailable [phone] Encounter Details Date Type Department Care Team (Late st Contact Info) Description 01/14/2025 Procedure Pass [facility] Endoscopy Admitting Dept Virtual Department [address] [place] [address] Social History Tobacco Use Types Packs/Day Years [...] as of this encounter Plan of Treatment Upcoming Encounters Date Type Department Care Team (Late st Contact Info) Description 10/14/2025 4:10 PM EST Office Visit [facility] [address] [place] [phone] Edna Naidu MD [address] [place] [address], [address] [place] [address] documented as of this encounter Visit Diagnoses Not on filedocumented in this encounter Additional Health Concerns Assessment Noted Time PHQ-9 Depression Total Score: 17 024 10:37 AM EST PHQ-2 Depression Total Score: 3 11/11/19 24 10:37 AM EST documented as of this encounter Care Teams Hotel General Manager Relationship Specialty Start Date End Date Michelle Castellanos MD PCP - General Family Medicine 12/29/21 Sofy Rothman PA-C [address] [place] [phone] [email or web address] Physician Claim Taker Hematology 07/05/22 documented as of this encounter Additional Source Comments The information contained in this document represents components of the legal health record. It is not the complete legal health record.[facility]
--- OUTSIDE RECORDS SUMMARY | 2025-10-14 07:44 | XMS_ITS | Encounter Summary ---
Author Organization [employer] [facility] Address [address] [place] [address] Phone Care Team Providers Care Hand Former Helper Name Role Phone Michelle Castellanos MD Primary Care Provider + Sofy Rothman PA-C Unavailable [phone] Encounter Details Date Type Department Care Team (Late st Contact Info) Description 07/19/2023 Procedure Pass [facility] [address] [place] [address] Social History Tobacco Use Types Packs/Day Years [...] high school, GED, job training, learning the German language, technical skills, or developing parenting skills)? [...] Office Visit [facility] [address] [place] [phone] Edna Naidu MD [address] [place] [address], [address] [place] [address] [email or web address] documented as of this encounter Visit Diagnoses Not on filedocumented in this encounter Additional Health Concerns Assessment Noted Time PHQ-9 Depression Total Score: 14 023 8:06 AM EDT PHQ-2 Depression Total Score: 3 07/19/20 23 8:06 AM EDT documented as of this encounter Care Teams Hand Former Helper Relationship Specialty Start Date End Date Michelle Castellanos MD PCP - General Family Medicine 2/22/22 Sofy Rothman PA-C [address] [place] [address] [email or web address] Physician Senior Network Architect Hematology 07/05/22 documented as of this encounter Additional Source Comments The information contained in this document represents components of the legal health record. It is not the complete legal health record.[facility]
--- OUTSIDE RECORDS SUMMARY | 2025-10-14 07:44 | XMS_ITS | Encounter Summary ---
Author Organization [facility] Address [address] [place] [address] Phone Care Team Providers Care Manager Investment Banking Name Role Phone Unavailable Primary Care Provider Unavailabl e Encounter Details Date Type Department Care Team (Late st Contact Info) Description 02/07/2015 Documentation [facility] [address] [place] [address] Family Medicine, Physician [address] [place] [address] Social History Tobacco Use Types Packs/Day Years [...]
--- OUTSIDE RECORDS SUMMARY | 2025-10-14 07:44 | XMS_ITS | Continuity of Care Document ---
Author Organization [place] - [facility], [facility] Address [address] [place] [address] Care Team Providers Care Manager Collection Name Role Phone ARVIND NGUYEN Referring Provider [phone] Assessment Encounter Date Assessment Date Assessment LastModified by Organization Details LastModified Time 08/16/2025 08/16/2025 25-year-old female presents for evaluation of recurrent sore throat. On examination there is cobblestoning of the posterior oropharynx consistent with seasonal allergy. Flexible laryngoscopy was obtained today showing congested nasal mucosa with scant thin rhinorrhea also consistent with allergy. Larynx within normal limits though there is erythema consistent with breakthrough reflux. We discussed that famotidine is best to use twice daily which she will begin. Also recommended initiation of Flonase given significant congestion and rhinorrhea noted on exam. Follow-up in 6 to 8 weeks for reevaluation. If no better could consider CT neck though there are no concerning symptoms. All questions were answered. tim Not available 08/16/2025 11:56:10 Plan of Treatment Reminders Order Date Submit Date Provider Last Modified By Organization Details Last Modified Time Details Appointments Allergy Test 2024 09:00A M [facility] Not available Not available Not available Establish ed 15 2025 09:00A M LIZZY SHEA PA-C Not available Not available Not available Lab None recorded. Referral None recorded. Procedures None recorded. Surgeries None recorded. Imaging None recorded. Medication Orders Flonase Allergy Relief 50 mcg/actua tion nasal spray,eden pension 2024 025 On license of [facility], [address] [place] [address], [address], 08/16/2025 11:57:37 Patient TargetsNo targets recorded. Patient InstructionsNo instructions recorded. Reason for Referral None Reported. Problems Name Problem SNOMED Code Status Onset Date Resolution Date Notes Provider Name and Address Organization Details Recorded Time Benign paroxysma l positiona l vertigo 025289787 Active 2019 Benign paroxysma l vertigo, right ear; Note: Date Diagnosed : 08/12/2020 2:11 PM (H81.11) Not Available [facility] 4 02:45:07 Disorder of right Eustachia n tube 23755521149 [address]105 Active 2019 Other specified disorders of Eustachia n tube, right ear; Note: Date Diagnosed : 08/12/2020 2:11 PM (H69.81) Not Available [facility] 4 02:45:05 Sore throat 502425369 Active 2024 LIZZY SHEA PA-C [address] [facility],[place] [address], [place], [address] , [place] - [facility] 11:56:17 Allergic rhinitis caused by pollen 74537623 Active 2024 LIZZY SHEA PA-C [address] [place] [address],[place] [address], [place], [address] , [facility] - [facility] 11:56:24 Gastroeso phageal reflux disease without esophagit is 629677277 Active 2024 LIZZY SHEA PA-C [address] [place] [address],[place] [address], [place], [address] , [facility] - [facility] 11:56:37 Dysphonia 14198731 Active 2024 LIZZY SHEA PA-C [address] [facility],[place] [address], [address] , [place] - [facility] 5 15:58:05 Dysphagia 55935190 Active 2024 LIZZY SHEA PA-C [address] [facility],[place] [address], [place], [address] , [place] - [facility] 15:58:07 Problem Notes None recorded. Procedures Surgical History Date Name Laterality Status Provider Name and Address Organization Details Recorded Time 08/16/20 25 Fiberoptic Laryngoscopy (Comprehensive) completed LIZZY SHEA PA-C [address] [place] [address], [id number], [facility] 08/16/2025 11:54:46 Imaging Results None recorded. Procedure Notes None recorded. Medical Equipment None Reported. Allergies Allergen ID Allergen Name Allergen Category Reaction Reaction Severity Criticality Documentation Date Start Date Code Code System Note Provider Name and Address Organization Details Recorded Time 533178 honey bee venom environme nt Not available Not available Not available 08/16/2025 92354 7 RxNorm Ramona montes [facility] 10:37:44 592096 poppy seed oil food Not available Not available Not available 08/16/2025 29934 99 RxNorm Ramona montes [facility] 10:37:44 488639 tree and shrub pollen environme nt,medica tion Not available Not available Not available 08/16/2025 Ramona montes [facility] 10:37:44 Medications Name Sig Start Date Stop Date Status Note LastModified by Organization Details LastModified Time metformin 500 mg tablet 1000 mg every day by oral route. active Not Available Not Available No t Available ascorbic acid (vitamin C) 1,000 mg tablet active Not Available Not Available Not Available polyethylen e glycol 3350 17 gram oral powder packet MIX AND DRINK 17G BY MOUTH THREE TIMES DAILY active Not Available Not Available No t Available senna 8.6 mg tablet TAKE 1 TABLET BY MOUTH TWICE DAILY 08/13 completed Not Available Not Available Not Available famotidine 40 mg tablet TAKE 1 TABLET BY MOUTH TWICE DAILY active Not Available Not Available No t Available sertraline 100 mg tablet active Not Available Not Available Not Available docusate sodium 100 mg capsule TAKE 1 CAPSULE BY MOUTH TWICE DAILY 08/13 completed Not Available Not Available Not Available ondansetron 4 mg disintegrat ing tablet DISSOLVE 1 TABLET ON THE TONGUE EVERY 8 HOURS NEEDED FOR NAUSEA OR VOMITING 08/13 completed Not Available Not Available Not Available Laxative (bisacodyl) 5 mg tablet TAKE 4 TABLETS BY MOUTH DIRECTED 08/13 completed Not Available Not Available Not Available bupropion HCl XL 150 mg 24 hr tablet, extended release TAKE 1 TABLET BY MOUTH EVERY MORNING 08/13 completed Not Available Not Available Not Available nitrofurant oin monohydrate /macrocryst als 100 mg capsule TAKE 1 CAPSULE BY MOUTH TWICE DAILY FOR 5 DAYS 08/13 completed Not Available Not Available Not Available albuterol sulfate active Not Available Not Available Not Available epinephrine 0.3 mg/0.3 mL intramuscul ar combo pack active Not Available Not Available Not Available ammonium lactate 12 % topical liquid 1 applicati on every day by topical route. active Not Available Not Available No t Available GaviLyte-G 236 gram-22.74 gram-6.74 gram-5.86 gram oral solution MIX AND DRINK DIRECTED 08/13 completed Not Available Not Available Not Available Vyvanse 10 mg capsule TAKE 1 CAPSULE BY MOUTH DAILY active Not Available Not Available No t Available Flonase Allergy Relief 50 mcg/actuati on nasal spray,suspe nsion 2 sprays each nostril once daily 2024 active Not Available Not Available Not Avai lable Trulicity 4.5 mg/0.5 mL subcutaneou s pen injector active Not Available Not Available Not Available Vitals Date Recorded Body height Body mass index (BMI) Body weight Systolic And Diastolic Provider Name and Address Organization Details Last Updated DateTime 08/16/2025 162.56 cm 39.5 kg/m2 560112.25 g 132/74 mm[Hg] Ramona Boyle [place] - [facility] 08/16/2025 10:39:03 Social History Question Answer Notes LastModified by Organizat ion Details LastModified Time Tobacco Smoking Status Never Smoker Ramona montes [place] - [facility] 08/16/2025 10:37:55 How Many Years Have You Consumed Alcohol? 6 [email or web address] Information not available 09/10/2025 What Type Of Plastic Sheets Supervisor Do You Use? None [email or web address] Information not available 08/16/2025 How Many Alcoholic Drinks Do You Consume Per Day On Average? 0 [email or web address] Information not available 09/10/2025 Which Illicit Or Recreational Drugs Have You Used? Marijuana Gummies [email or web address] Information not available 08/16/2025 How Many Years Have You Used Illicit Or Recreational Drugs? 3 Information not available 09/10/2025 Do You Have Any Pets? Yes [email or web address] Information not available 08/16/2025 Are You Passively Exposed To Smoke? No [email or web address] Information no t available 08/16/2025 Are There Any Smokers In Your House? No [email or web address] Information not available 08/16/2025 Have You Used IV Drugs? No [email or web address] Information not available 08/16/2025 Sex: Unknown Functional Status Question Answer Note LastModified by Organization Details LastModified Time How many times per week do you consume alcohol? Less than 1 time per week [email or web address] Inform ation not available 08/16/2025 Do you use any illicit or recreational drugs? Yes Information not available 08/16/2025 Do you or have you ever used any other forms of tobacco or nicotine? No [email or web address] Information not available 08/16/2025 What is your level of alcohol consumption? Occasional [email or web address] Information not available 08/16/2025 What type of noise exposure are you exposed to? noExposureToExcessiveNoise [email or web address] Infor mation not available 08/16/2025 Mental Status None recorded. Family History Nothing Reported. Medical History Condition Response Allergies/Hayfever Y Heart Problems N Anxiety Y Tonsil Infections Y Emphysema N Migraines Y Thyroid Problems N COPD N Depression Y Developmental Delay N Glaucoma N Nasal or Sinus Problems Y Anemia N Immune System Disorder N Anesthesia Complications N Heart Attack ([place]) N Other Skin Condition N Diabetes Y Rhinitis N Bleeding Disorder N Food Allergy Y Hearing Loss Y Arthritis N Hyperlipidemia N Cancer N Stroke N Dementia N Nasal polyps N Asthma Y Sleep Disorder N High Cholesterol N GERD/Reflux Y Liver Disease N Headaches Y Fibromyalgia N Hypertension N Speech Delay N Kidney Disease N Gynecological HistoryNo gynecological history recorded. Obstetrics History GPAL:G 0 P 0 0 0 0 Past Encounters Encounter ID Performer Location Encounter Start Date Encounter Closed Date Diagnosis/Indication Diagnosis SNOMED-CT Code Diagnosis ICD10 Code Diagnosis IMO Codes Diagnosis Note [id number] LIZZY SHEA PA-C [facility] of [address] [place] [address] 08/16/2025 10:32:40 08/16/2025 11:45:44 Sore throat 136521017 J02.9 35203 Allergic r hinitis caused by pollen 22784326 J30.1 42429505 Gastroesop hageal reflux disease without esophagitis 665292849 K21.9 559387 Health Concerns Section Related Observation LastModified by Organization Detai ls LastModified Time None Recorded Concern Status LastModified by Organization Details LastModified Time None Recorded Payers Encounter Date Sequence Insurance Name Policy Number Policy Jordan Covered Member ID Jordan Member ID Guarantor Name 08/16/2025 1 [facility] (MEDICAID REPLACEMENT - HMO) MAYUR Vazquez [id number] Mary Ellen Vazquez Notes Date Note Type Note Provider Name and Address Organization Details Recorded Time 08/16/2025 text/html ROS as noted in the HPI 25 year old females presents for recurrent sore throat. She reports constantly having an itchy throat and has intermittent episodes of sore throat almost daily which worsens when talking and singing for long periods of time. When she is having this discomfort, she reports occasional difficulty swallowing and feeling like there is something in her throat. Patient reports a history of GERD and takes Famotidine 20mg once daily. Patient endorses allergy symptoms, including watery eyes, nasal congestion and post nasal drip, that occurs during the summer and fall. When she is having these symptoms, she takes Claritin daily. Denies a history of smoking. States she has lost 5 pounds in 2 weeks recently. LIZZY SHEA PA-C [address] [facility],[address], [address], [facility] - [facility] 08/16/2025 11:58:06 OBGyn Episode No OBEpisode recorded.
--- OUTSIDE RECORDS SUMMARY | 2025-10-14 07:44 | XMS_ITS | Encounter Summary ---
Author Organization [facility] Address [address] [place] [address] Phone Care Team Providers Care Baseball Sewer Hand Name Role Phone Unavailable Primary Care Provider Unavailabl e Encounter Details Date Type Department Care Team (Late st Contact Info) Description 09/07/2013 Documentation [facility] [address] [place] [address] Family Medicine, Physician [address] [place] [address] Social History Tobacco Use Types Packs/Day Years [...]
--- OUTSIDE RECORDS SUMMARY | 2025-10-14 07:44 | XMS_ITS | Encounter Summary ---
Author Organization [facility] Address [address] [place] [address] Phone Care Team Providers Care Shactor Name Role Phone Unavailable Primary Care Provider Unavailabl e Encounter Details Date Type Department Care Team (Late st Contact Info) Description 02/07/2015 Documentation [facility] [address] [place] [address] Family Medicine, Physician [address] [place] [address] Social History Tobacco Use Types Packs/Day Years [...]
--- OUTSIDE RECORDS SUMMARY | 2025-10-14 07:44 | XMS_ITS | Encounter Summary ---
Author Organization [facility] Address [address] [place] [address] Phone Care Team Providers Care Tobacco Wrapping Machine Tender Name Role Phone Unavailable Primary Care Provider Unavailabl e Encounter Details Date Type Department Care Team (Late st Contact Info) Description 02/13/2016 Documentation [facility] [address] [place] [address] Family Medicine, Physician [address] [place] [address] Social History Tobacco Use Types Packs/Day Years [...]
--- OUTSIDE RECORDS SUMMARY | 2025-10-14 07:44 | XMS_ITS | Data Portability ---
Author Organization [place] - [facility], Allergy Address [address] [place] [address] Care Team Providers Care Geomorphologist Name Role Phone ARVIND NGUYEN Referring Provider Assessment Encounter Date Assessment Date Assessment LastModified [...] were answered. tim Not available 08/16/2025 11:56:10 09/10/2025 09/10/2025 25-year-old female presents for reevaluation of throat discomfort. I believe that her throat discomfort is multifactorial in nature. She does have uncontrolled reflux for which I have recommended she follow-up with her gastroenterologis t. This is likely the bulk of the issue. She does however seem to have an allergic component given improvement with Flonase. She is fairly symptomatic of seasonal allergies and is interested in allergy testing which will be arranged. She does not have any chronic sinus symptoms. The discomfort with talking and singing and possibly mild dysphagia could be related to muscle tension. She does describe an overall tight feeling in her throat. For this I have recommended speech and language pathology evaluation with stroboscopy. She may benefit from voice therapy. She will follow-up after allergy testing for review and further planning. If she continues to have dysphagia could consider modified barium swallow but she declines this for now. All questions were answered. [email or web address] Not available 09/10/2025 15:57:46 Plan of Treatment Reminders Order Date Submit Date Provider Last Modified By Organization Details Last Modified Time Details Appointments Allergy Test 2024 09:00A M [facility] Not available Not available Not available Establi shed 15 2025 09:00A M LIZZY SHEA PA-C Not available Not available Not available Lab None recorde d. Referral None recorde d. Procedures allergy testing , skin prick (PROC) 2024 025 [email or web address] Not available 10/10/2025 13:23:58 intrade rmal allergy skin testing (PROC) 2024 025 [email or web address] Not available 10/10/2025 13:23:58 pulmona ry functio n test procedu re (PROC) 2024 025 [email or web address] Not available 10/10/2025 13:23:59 pulse oximetr y (PROC) 2024 025 [email or web address] Not available 10/10/2025 13:23:59 laryngo scopy, flexibl e or rigid fiberop tic, with strobos copy (PROC) 2024 025 [email or web address] Not available 10/11/2025 08:21:23 Surgeries None recorde d. Imaging None recorde d. Medication Orders Flonase Allergy Relief 50 mcg/act uation nasal spray,s uspensi on 2024 025 [facility], [address] [place] [address], [place], [address], 08/16/2025 11:57:37 Patient TargetsNo targets recorded. Patient InstructionsNo instructions recorded. Reason for Referral None Reported. Problems Name Problem SNOMED Code Status Onset Date Resolution Date Notes Provider Name and Address Organization Details Recorded Time Benign paroxysma l positiona l vertigo 122574925 Active 2019 Benign paroxysma l vertigo, right ear; Note: Date Diagnosed : 08/12/2020 2:11 PM (H81.11) Not Available [facility] 4 02:45:07 Disorder of right Eustachia n tube 11126509024 50626 Active 2019 Other specified disorders of Eustachia n tube, right ear; Note: Date Diagnosed : 08/12/2020 2:11 PM (H69.81) Not Available [facility] 4 02:45:05 Sore throat 158489492 Active 2024 LIZZY SHEA PA-C [address], [place], [address] , [place] - [facility] 5 11:56:17 Allergic rhinitis caused by pollen 60710857 Active 2024 LIZZY SHEA PA-C [address], [place], [address] , [place] - [facility] 5 11:56:24 Gastroeso phageal reflux disease without esophagit is 373654458 Active 2024 LIZZY SHEA PA-C [address], [place], [address] , [facility] - [facility] 5 11:56:37 Dysphonia 84254532 Active 2024 LIZZY SHEA PA-C [address], [place], [address] , [place] [facility] 5 15:58:05 Dysphagia 51408120 Active 2024 LIZZY SHEA PA-C [address], [place], [address] , [facility] - [facility] 15:58:07 Problem Notes None recorded. Procedures Surgical History Date Name Laterality Status Provider Name and Address Organization Details Recorded Time 08/16/20 25 Fiberoptic Laryngoscopy (Comprehensive) completed LIZZY SHEA PA-C [address], [place], [address], [place] - [facility] 08/16/2025 11:54:46 Imaging Results None recorded. Procedure Notes None recorded. Medical Equipment None Reported. Allergies Allergen ID Allergen Name Allergen Category Reaction Reaction Severity Criticality Documentation Date Start Date Code Code System Note Provider Name and Address Organization Details Recorded Time 298210 honey bee venom environme nt Not available Not available Not available 08/16/2025 57718 7 RxNorm Ramona montes [place] - [facility] 10:37:44 200075 poppy seed oil food Not available Not available Not available 08/16/2025 99220 99 RxNorm Ramona montes [place] [facility] 10:37:44 301384 tree and shrub pollen environme nt,medica tion Not available Not available Not available 08/16/2025 Ramona montes [facility] 10:37:44 Medications Name Sig Start Date Stop [...] Updated DateTime 08/16/2025 162.56 cm 39.5 kg/m2 143825.25 g 132/74 mm[Hg] Ramona Boyle [place] [facility] 08/16/2025 10:39:03 Date Recorded Body height Body mass index (BMI) Body weight Systolic And Diastolic Provider Name and Address Organization Details Last Updated DateTime 09/10/2025 162.56 cm 39.5 kg/m2 910666.25 g 118/82 mm[Hg] Gosia Yeh [facility] 09/10/2025 15:26:40 Social History Question Answer Notes LastModified by Organizat ion Details LastModified Time Tobacco Smoking Status Never Smoker Ramona montes [place] [facility] 08/16/2025 10:37:55 How Many Years Have You Consumed Alcohol? 6 [email or web address] Information not available 09/10/2025 What Type Of Roller Skates Assembler Do You Use? None Information not available 08/16/2025 How Many Alcoholic Drinks Do You Consume Per Day On Average? 0 [email or web address] Information not available 09/10/2025 Which Illicit Or Recreational Drugs Have You Used? Marijuana Gummies [email or web address] Information not available 08/16/2025 How Many Years Have You Used Illicit Or Recreational Drugs? 3 [email or web address] Information not available 09/10/2025 Do You Have Any Pets? Yes [email or web address] Information not available 08/16/2025 Are You Passively Exposed To Smoke? No [email or web address] Information no t available 08/16/2025 Are There Any Smokers In Your House? No [email or web address] Information not available 08/16/2025 Have You Used IV Drugs? No [email or web address] Information not available 08/16/2025 Sex: Unknown Functional Status Question Answer Note LastModified by Organization Details LastModified Time How many times per week do you consume alcohol? Less than 1 time per week [email or web address] Inform ation not available 08/16/2025 Do you use any illicit or recreational drugs? Yes [email or web address] Information not available 08/16/2025 Do you or have you ever used any other forms of tobacco or nicotine? No [email or web address] Information not available 08/16/2025 What is your level of alcohol consumption? Occasional [email or web address] Information not available 08/16/2025 What type of noise exposure are you exposed to? noExposureToExcessiveNoise [email or web address] Infor mation not available 08/16/2025 Mental Status None recorded. Family History Nothing Reported. Medical History Condition Response Allergies/Hayfever Y Heart Problems N Anxiety Y Tonsil Infections Y Emphysema N Migraines Y Thyroid Problems N Depression Y COPD N Developmental Delay N Glaucoma N Nasal or Sinus Problems Y Anemia N Immune System Disorder N Anesthesia Complications N Heart Attack ([place]) N Other Skin Condition N Diabetes Y [...] ICD10 Code Diagnosis IMO Codes Diagnosis Note [id number] LIZZY SHEA PA-C [facility] [place] 8557007-117 9 08/16/2025 10:32:40 08/16/2025 11:45:44 Sore throat 246164195 J02.9 87075 Allergic r hinitis caused by pollen 50633347 J30.1 27374328 Gastroesop hageal reflux disease without esophagitis 291008371 K21.9 448727 90831 LIZZY SHEA PA-C [facility] [address] [facility] [place] [address] 09/10/2025 15:17:22 09/10/2025 15:42:37 Allergic rhinitis caused by pollen 21968176 J30.1 93943754 Gastroesop hageal reflux disease without esophagitis 871504256 K21.9 706564 Sore throat 980255917 J0 2.9 99194 Dysphonia 08069546 R49.0 615399 Dysphagia 71162941 R13.1 9 [id number] Health Concerns Section Related Observation LastModified by Organization Detai ls LastModified Time None Recorded Concern Status LastModified by Organization Details LastModified Time None Recorded Advance Directives Directive None Recorded Payers Insurance Date Sequence Insurance Name Policy Number Policy Jordan Covered Member ID Jordan Member ID Guarantor Name 09/12/2025 1 [facility] [employer] (MEDICAID REPLACEMENT - HMO) MAYUR Vazquez [id number] Mary Ellen Vazquez Notes Date Note Type [...] 2 weeks recently. LIZZY SHEA PA-C [address], [address], [place] - [facility] 08/16/2025 11:58:06 09/10/2025 text/html ROS as noted in the HPI 25-year-old female presents for reevaluation of throat discomfort. She states that the throat discomfort is mostly when she is talking or singing that she does have a low-level discomfort otherwise. She has also been having some difficulty with swallowing and states she has been eating much more slowly as she is afraid to choke. She has reflux which is not controlled with famotidine 40 mg twice daily. 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 At last visit flexible laryngoscopy was consistent with reflux as well as postnasal drip. She has been using Flonase which has been helpful in relieving congestion and postnasal drip but has not helped with her throat discomfort. No history of smoking or alcohol use and no red flag symptoms. LIZZY SHEA PA-C [address] [facility],[place] [address], [place], [address], [facility] - [facility] 09/10/2025 15:59:34 OBGyn Episode No OBEpisode recorded.
--- OUTSIDE RECORDS SUMMARY | 2025-10-14 07:44 | XMS_ITS | Continuity of Care Document ---
Author Organization [place] - [facility], [facility] Address [address] [place] [address] Care Team Providers Care Rock Breaker Name Role Phone ARVIND NGUYEN Referring Provider Assessment Encounter Date Assessment Date Assessment LastModified by Organization Details LastModified Time 09/10/2025 09/10/2025 25-year-old female presents for reevaluation [...] this for now. All questions were answered. [email or web address] Not available 09/10/2025 15:57:46 Plan of Treatment Reminders Order Date Submit Date Provider Last Modified By Organization Details Last Modified Time Details Appointments Allergy Test 2024 09:00A M [facility] Not available Not available Not available Establi [...] d. Imaging None recorde d. Medication Orders None recorde d. Patient TargetsNo targets recorded. Patient InstructionsNo instructions recorded. Reason for Referral None Reported. Problems Name Problem SNOMED Code Status Onset Date Resolution Date Notes Provider Name and Address Organization Details Recorded Time Benign paroxysma l positiona l vertigo 947390261 Active 2019 Benign paroxysma l vertigo, right ear; Note: Date Diagnosed : 08/12/2020 2:11 PM (H81.11) Not Available [facility] 4 02:45:07 Disorder of right Eustachia n tube 38180501708 82083 Active 2019 Other specified disorders of Eustachia n tube, right ear; Note: Date Diagnosed : 08/12/2020 2:11 PM (H69.81) Not Available [facility] 4 02:45:05 Sore throat 249920221 Active 2024 LIZZY SHEA PA-C [address] [facility],[place] [address], [place], [address] , [place] - [facility] 5 11:56:17 Allergic rhinitis caused by pollen 91846165 Active 2024 LIZZY SHEA PA-C [address] [facility],[place] [address], [place], [address] , [place] [facility] [place] 11:56:24 Gastroeso phageal reflux disease without esophagit is 722742313 Active 2024 LIZZY SHEA PA-C [address] [facility],[place] [address], [place], [address] , [place] [facility] 11:56:37 Dysphonia 38474740 Active 2024 LIZZY SHEA PA-C [address] [place] [address],[place] [address], [place], [address] , [place] [facility] 15:58:05 Dysphagia 31795766 Active 2024 LIZZY SHEA PA-C [address] [facility],[place] [address], [place], [address] , [place] [facility] [place] [place] 15:58:07 Problem Notes None recorded. Procedures Surgical History Date Name Laterality Status Provider Name and Address Organization Details Recorded Time 08/16/20 25 Fiberoptic Laryngoscopy (Comprehensive) completed LIZZY SHEA PA-C [address] [facility],[place] [address], [place], [address], [place] [facility] 08/16/2025 11:54:46 Imaging Results None recorded. Procedure Notes None recorded. Medical Equipment None Reported. Allergies Allergen ID Allergen Name Allergen Category Reaction Reaction Severity Criticality Documentation Date Start Date Code Code System Note Provider Name and Address Organization Details Recorded Time 884431 honey bee venom environme nt Not available Not available Not available 08/16/2025 [address] [facility] 10:37:44 362907 poppy seed oil food Not available Not available Not available 08/16/2025 66545 99 RxNorm Ramona montes [place] - [facility] 10:37:44 747546 tree and shrub pollen environme nt,medica tion Not available Not available Not available 08/16/[address] [facility] 10:37:44 Medications Name Sig Start [...] Updated DateTime 09/10/2025 162.56 cm 39.5 kg/m2 791184.25 g 118/82 mm[Hg] Gosia Ramos [place] - [facility] 09/10/2025 15:26:40 Social History Question Answer Notes LastModified by Organizat ion Details LastModified Time Tobacco Smoking Status Never Smoker Ramona montes [place] - [facility] 08/16/2025 10:37:55 How Many Years Have You Consumed Alcohol? 6 [email or web address] Information not available 09/10/2025 What Type Of Waste Elimination Do You Use? None [email or web address] Information not available 08/16/2025 How Many Alcoholic Drinks Do You Consume Per Day On Average? 0 [email or web address] Information not available 09/10/2025 Which Illicit Or Recreational Drugs Have You Used? Marijuana Gummies [email or web address] Information not available 08/16/2025 How Many Years Have You Used Illicit Or Recreational Drugs? 3 Information not available 09/10/2025 Do You Have Any Pets? Yes [email or web address] Information not available 08/16/2025 Are You Passively Exposed To Smoke? No [email or web address] Information no t available 08/16/2025 Are There Any Smokers In Your House? No [email or web address] Information not available 08/16/2025 Have You Used IV Drugs? No [email or web address] Information not available 08/16/2025 Sex: Unknown Functional Status Question Answer Note LastModified by Organization Details LastModified Time How many times per week do you consume alcohol? Less than 1 time per week [email or web address] Inform ation not available 08/16/2025 Do you use any illicit or recreational drugs? Yes [email or web address] Information not available 08/16/2025 Do you or have you ever used any other forms of tobacco or nicotine? No [email or web address] Information not available 08/16/2025 What is your level of alcohol consumption? Occasional [email or web address] Information not available 08/16/2025 What type of noise exposure are you exposed to? noExposureToExcessiveNoise Infor mation not available 08/16/2025 Mental Status None recorded. Family History Nothing Reported. Medical History Condition Response Allergies/Hayfever Y Heart Problems N Anxiety Y Tonsil Infections Y Emphysema N Migraines Y Thyroid Problems N COPD N Depression Y Developmental Delay N Glaucoma N Nasal or Sinus Problems Y Anemia N Immune System Disorder N Anesthesia Complications N Heart Attack ([place]) N Other Skin Condition N Diabetes Y [...] ICD10 Code Diagnosis IMO Codes Diagnosis Note [id number] LIZZY SHEA PA-C [facility] [address] [address] 08/16/2025 10:32:40 08/16/2025 11:45:44 Sore throat 286101341 J02.9 97502 Allergic r hinitis caused by pollen 88748574 J30.1 03932395 Gastroesop hageal reflux disease without esophagitis 350025512 K21.9 096113 82273 LIZZY SHEA PA-C [facility] [address] [address] 09/10/2025 15:17:22 09/10/2025 15:42:37 Allergic rhinitis caused by pollen 67888142 J30.1 38437691 Gastroesop hageal reflux disease without esophagitis 868322256 K21.9 313825 Sore throat 365781917 J0 2.9 70535 Dysphonia 92469803 R49.0 990637 Dysphagia 30720312 R13.1 9 [id number] Health Concerns Section Related Observation LastModified by Organization Detai ls LastModified Time None Recorded Concern Status LastModified by Organization Details LastModified Time None Recorded Payers Encounter Date Sequence Insurance Name Policy Number Policy Jordan Covered Member ID Jordan Member ID Guarantor Name 09/10/2025 1 [facility] [employer] (MEDICAID REPLACEMENT - HMO) MAYUR Vazquez [id number] Mary Ellen Vazquez Notes Date Note Type Note Provider Name and Address Organization Details Recorded Time 09/10/2025 text/html ROS as noted in the [...] 40 mg twice daily. 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 At last visit flexible laryngoscopy was consistent with reflux as well as postnasal drip. She has been using Flonase which has been helpful in relieving congestion and postnasal drip but has not helped with her throat discomfort. No history of smoking or alcohol use and no red flag symptoms. LIZZY SHEA PA-C [address] [place] [address], [address], [place] - [facility] 09/10/2025 15:59:34 OBGyn Episode No OBEpisode recorded.
--- OUTSIDE RECORDS SUMMARY | 2025-10-14 07:44 | XMS_ITS | Encounter Summary ---
Author Organization [facility] Address [address] [place] [address] Phone Care Team Providers Care Dining Room Host Name Role Phone Unavailable Primary Care Provider Unavailabl e Encounter Details Date Type Department Care Team (Late st Contact Info) Description 06/23/2017 Conversion Encounter [facility] - [address] [address] Social History Tobacco Use Types Packs/Day Years [...]
--- OUTSIDE RECORDS SUMMARY | 2025-10-14 07:44 | XMS_ITS | Encounter Summary ---
Author Organization [facility] Address [address] [place] [address] Phone Care Team Providers Care Contracts Administrator Name Role Phone Unavailable Primary Care Provider Unavailabl e Reason for Visit * Reason Comments Med Refill Encounter Details Date Type Department Care Team (Late st Contact Info) Description 06/10/2018 Refill [facility] [place] [address] [place] [address] Nicki Reed MD [address] [place] [address] Encounter for surveillance of contraceptive pills (Primary [...]
--- NOTE | 2025-10-14 07:56 | MHC.OFFVIS ---
Vital Signs 10/14/25 07:59 Height 5 ft 4 in Weight 233 lb 11.04 oz BMI 40.1 BP 102/72 Blood Pressure Location Rt brachial Position Sitting Pulse 92 Pulse Source Pulse Oximeter Pulse Oximetry (%) 97 Oxygen Delivery Method Room Air Intake Visit Reasons: Type 2 diabetes mellitus with unspecified complica Intake Note: New patient internally referred by PCP for T2DM. Patient reports she does have a glucometer but she is not using it due to the pain she experiences when finger sticking. Last Diabetic Eye exam: May 2025, [facility], seen yearly Last Podiatry Visit: Does not see a Funeral Sales Manager Random Glucose: 261 mg/dl Hgb A1C: 10.6% 10/14/2025 Center Aisle Cashier Required: No Accompanied by: Mother Allergies bee pollen (BEE STINGS) Allergy (Unknown, Verified 10/14/25 08:01) LEGS SWELL UP poppyseed oil (POPPYSEED OIL) Allergy (Unknown, Verified 10/14/25 08:01) ITCHY THROAT HPI Comments Details: 25 YO F who is seen in consultation for T2DM at the request of PCP. Initially diagnosed with T2DM in 6 yrs . Never saw specialist before Was initially started on treatment with metformin . Current regimen trulicity 4.5 mg Qwkly. metformin Er 1000 mg QD not tolerated because of GI issues . Took Ozempic tolerated ok Not Checks sugars times per day. Unfortunately, patient did not bring log book, glucometer or sensor to visit Most recent A1C 10.2 , [ Family history of T2DM in mother , grandparents . Has eyes checked yearly, last eye exam 05/2025 , denies retinopathy. Denies neuropathy, Not sees podiatry. Denies nephropathy, Not on KAELYN/ARB. UAC [] as measured on []. Not Has HLD, Not on statin. Last LDL [] as measured on []. Denies CAD. : [] Not Had diabetes education. [facility] Medical History Anxiety and depression Fatty liver Asthma Diabetes PCOS (polycystic ovarian syndrome) Surgical History (Updated 05/14/25 @ 08:02 by Alison Carbajal CMA) Hx of wisdom tooth extraction Hx of colonoscopy (~01/2025) H/O endoscopy (~01/2025) Family History (Updated 04/10/25 @ 12:48 by Denis Roche MA) Father Substance abuse Mother Asthma Diabetes Maternal Grandmother Asthma Breast cancer Social History (Updated 04/10/25 @ 12:47 by Denis Roche MA) Household Members: Family Both parents involved: No Caregiver staying overnight: No Housing: House Are you a primary gericare aide teacher to a significant other at home: No Do you presently have visiting nurse or other home services: No 75 years or older and lives alone: No Alcohol intake: current Alcohol intake frequency: holidays/special occasions only Patient Tobacco Use Status: Never used Tobacco e-Cigarette/Vaping Use: Never Used Second Hand Smoke Exposure: No Substance Use Type: Marijuana Current occupational status: employed 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 Absence of acromegalic features. Neck exam reveals nl size thyroid about 15 gms. No thyroid nodules palpable. No carotid bruits present. Lungs CTA. Heart S1 S2, Reg R/R. No M/R/ G. Skin exam reveals absence of vitiligo or acanthosis nigricans. Abdominal exam reveals Soft NT/ND with NA BS. No organomegaly present. Neck Other: . Extrem Other: Visual exam of foot performed. No ulcerations or open lesions. No onchomycosis, no callouses.Pulses 2 + distally Sensation intact to monofilament exam. Vibratory sensation sensed is intact with 128 Hz tuning fork Results AMB Hemoglobin A1c AMB Hemoglobin A1c 10.6 % Last Edit by JOHN High on 10/14/25 08:19 Results Reviewed Results Reviewed: Laboratory Last Values Glucose (Clinic) 261 mg/dL (60-115) H 10/14/25 08:07 Assessment & Plan Assessment & Plan (1) DM type 2 causing complication: Comment: HYPERGLYCEMIA Code(s): E11.8 - Type 2 diabetes mellitus with unspecified complications Category: Medical Plan: 25-year-old female with a history of type 2 diabetes being treated with the Trulicity and metformin with poor glycemic control complications of fatty liver but no other microvascular or macrovascular complications Plan is to change the Trulicity to Mounjaro 2.5 mg Q weekly. Went over side effects of Mounjaro including but not limited to nausea, vomiting and rare risk of pancreatitis. Also started patient on Lorena 3+ sensor and gave her samples. . We will refer patient to development educator and extract mixer. Went over the correlation of poor glycemic control to development of progression of complications with the patient and mother. We will have patient follow up with primary care diabetes team in 6 weeks Orders: Orders AMB Hemoglobin A1c Today E11.8 - Type 2 diabetes mellitus with unspecified complications Lipid Panel 8 Weeks E11.8 - Type 2 diabetes mellitus with unspecified complications Referrals Diabetes Education Referral E11.8 - Type 2 diabetes mellitus with unspecified complications Nutrition/Dietitian Referral E11.8 - Type 2 diabetes mellitus with unspecified complications Medications: New Mounjaro (tirzepatide) for 4 weeks 2.5 mg (0.5 mL) subcut QWEEK 2 mL 0RF NS atorvastatin (Lipitor) 10 mg PO BEDTIME 30 tabs 5RF Coding Level of Care Code New Pt Level 5 (02222) Diagnoses DM type 2 causing complication E11.8
[2025-10-14 07:59] VITALS: BP 102/72; PULSE 92; O2SAT 97; BMI 40.1
[2025-10-14 08:12] LABS: Glucose, Whole Blood 261 mg/dL (60-115)
== END 2025-10-14 08:51 | disposition home or self-care (01) ==
LOC: HO.ENCR 07:41
PROVIDERS: PCP Nurse Practitioner Family; Visit Provider Internal Medicine Endocrinology, Diabetes & Metabolism
DX: E11.65 Type 2 diabetes mellitus with hyperglycemia (principal)
CPT/HCPCS: 99204

== ENCOUNTER → 2025-10-14 07:40 | Outpatient (BNVA) | payer OTHER, SELFPAY | PROVIDERS: PCP Nurse Practitioner Family; Visit Provider Internal Medicine Endocrinology, Diabetes & Metabolism | DX: E11.65 Type 2 diabetes mellitus with hyperglycemia (principal); Z79.85 Long-term (current) use of injectable non-insulin antidiabetic drugs | CPT/HCPCS: 82947; 83036; 99202 ==

== ENCOUNTER 2025-11-04 06:58 | Outpatient (AMB) | payer OTHER, SELFPAY ==
--- OUTSIDE RECORDS SUMMARY | 2025-11-04 07:01 | XMS_ITS | Continuity of Care Document ---
Author Organization [place] - [facility], [facility] Address [address] [place] [address] Care Team Providers Care Manager Garage Name Role Phone ARVIND NGUYEN Referring Provider [...] this for now. All questions were answered. [email or web address] Not available 09/10/2025 15:57:46 Plan of Treatment Reminders Order Date Submit Date Provider Last Modified By Organization Details Last Modified Time Details Appointments Establi shed 15 2025 09:00A Ty SHEA PA-C Not available Not available Not [...] fiberop tic, with strobos copy (PROC) 2024 [email or web address] Not available 10/11/2025 08:21:23 Surgeries None recorde d. Imaging None recorde d. Medication Orders None recorde d. Patient TargetsNo targets recorded. Patient InstructionsNo instructions recorded. Reason for Referral None Reported. Results Created Date Observation Date Name Description Value Unit Range Abnormal Flag Note LastModifiedBy Organization Detail LastModifiedTime 10/22/20 25 lauren metry testi ng* No observ ation record ed. [email or web address] Not Available 2024 09:24:25 Result Notes None recorded. Problems Name Problem SNOMED Code Status Onset Date Resolution Date Notes Provider Name and Address Organization Details Recorded Time Benign paroxysma l positiona l vertigo 640761198 Active 2019 Benign paroxysma l vertigo, right ear; Note: Date Diagnosed : 08/12/2020 2:11 PM (H81.11) [facility] Available [facility] 02[facility]07 Disorder of right Eustachia n tube 57173594246 84211 Active 2019 Other specified disorders of Eustachia n tube, right ear; Note: Date Diagnosed : 08/12/2020 2:11 PM (H69.81) Not Available [facility] 02:45:05 Sore throat 893125546 Active 2024 LIZZY SHEA PA-C [address] [place] [address],[place] [address], [place], [address] , [facility] - [facility] 5 11:56:17 Allergic rhinitis caused by pollen 23759407 Active 2024 LIZZY SHEA PA-C [address] [place] [address], [place], [address] , [facility] - [facility] 11:56:24 Gastroeso phageal reflux disease without esophagit is 481089316 Active 2024 LIZZY SHEA PA-C [address] [facility],[place] [address], [place], [address] , [facility] - [facility] 11:56:37 Dysphonia 93282895 Active 2024 LIZZY SHEA PA-C [address] [facility],[place] [address], [place], [address] , [facility] - [facility] 15:58:05 Dysphagia 02019561 Active 2024 LIZZY SHEA PA-C [address] [place] [address],[place] [address], [place], [address] , [facility] 15:58:07 Chronic rhinitis 70719455 Active 2024 JOHN SCHAFFER [address] [facility],[place] [address], [facility] [place], [address] , [facility] 09:20:20 Problem Notes None recorded. Procedures Surgical History Date Name Laterality Status Provider Name and Address Organization Details Recorded Time 10/22/20 25 Allergy Testing-Full completed JOHN SCHAFFER [address] [facility],[place] [address], [place], [address], [facility] 10/22/2025 10:21:03 08/16/20 25 Fiberoptic Laryngoscopy (Comprehensive) completed LIZZY SHEA PA-C [address] [facility],[place] [address], [place], [address], [facility] 08/16/2025 11:54:46 Imaging Results None recorded. Procedure Notes None recorded. Medical Equipment None Reported. Allergies Allergen ID Allergen Name Allergen Category Reaction Reaction Severity Criticality Documentation Date Start Date Code Code System Note Provider Name and Address Organization Details Recorded Time 165329 honey bee venom environme nt Not available Not available Not available 08/16/2025 87610 7 RxNorm Ramona montes [place] - [facility] 5 10:37:44 885459 poppy seed oil food Not available Not available Not available 08/16/2025 60821 99 RxNorm Ramona montes [place] - [facility] 5 10:37:44 325326 tree and shrub pollen environme nt,medica tion Not available Not available Not available 08/16/2025 Ramona montes [place] - [facility] 5 10:37:44 283681 bee pollen environme nt,medica tion Not available Not available Not available 10/22/20252024 53256 7 RxNorm Not Available pike - External Data Service - prod 5 03:27:13 Medications Name Sig Start Date Stop Date [...] completed Not Available Not Available Not Available Lipitor 10 mg tablet 1 tablet every day by oral route. active Not Available Not Available No t Available Laxative (bisacodyl) 5 mg tablet TAKE [...] 4.5 mg/0.5 mL subcutaneou s pen injector 10/18 completed Not Available Not Available Not Available Mounjaro 2.5 mg/0.5 mL subcutaneou s pen injector active Not Available Not Available Not Available Vitals Date Recorded Body height Body mass index (BMI) Body weight Systolic And Diastolic Provider Name and Address Organization Details Last Updated DateTime 09/10/2025 162.56 cm 39.5 kg/m2 840719.25 g 118/82 mm[Hg] Gosia Yeh [place] - [facility] 09/10/2025 15:26:40 Social History Question Answer Notes LastModified by Organizat ion Details LastModified Time Tobacco Smoking Status Never Smoker Ramona montes [place] - [facility] 08/16/2025 10:37:55 How Many Years Have You Consumed Alcohol? 6 Information not available 09/10/2025 What Type Of Public Address System Installer Do You Use? None [email or web address] Information not available 08/16/2025 How Many Alcoholic Drinks Do You Consume Per Day On Average? 0 [email or web address] Information not available 09/10/2025 Which Illicit Or Recreational Drugs Have You Used? Marijuana Gummies [email or web address] Information not available 08/16/2025 How Many Years Have You Used Illicit Or Recreational Drugs? 3 [email or web address] Information not available 09/10/2025 Do You Have Any Pets? Yes [email or web address] Information not available 08/16/2025 Are You Passively Exposed To Smoke? No [email or web address] Information no t available 08/16/2025 Are There Any Smokers In Your House? No [email or web address] Information not available 08/16/2025 Have You Used IV Drugs? No [email or web address] Information not available 08/16/2025 Sex: Unknown Functional Status Question Answer Note LastModified by Organization Details LastModified Time How many times per week do you consume alcohol? Less than 1 time per week [email or web address] Inform ation not available 08/16/2025 Do you use any illicit or recreational drugs? Yes [email or web address] Information not available 08/16/2025 Do you or have you ever used any other forms of tobacco or nicotine? No [email or web address] Information not available 08/16/2025 What is your level of alcohol consumption? Occasional [email or web address] Information not available 08/16/2025 What type of noise exposure are you exposed to? noExposureToExcessiveNoise [email or web address] Infor mation not available 08/16/2025 Mental Status None recorded. Family History Nothing Reported. Medical History Condition Response Allergies/Hayfever Y Heart Problems N Anxiety Y Tonsil Infections Y Emphysema N Migraines Y Thyroid Problems N Glaucoma N Developmental Delay N Depression Y COPD N Nasal or Sinus Problems Y Anemia N Immune System Disorder N Anesthesia Complications N Heart Attack ([place]) N Other Skin Condition N Diabetes Y Rhinitis N Bleeding Disorder N Food Allergy Y Hearing Loss Y Arthritis N Hyperlipidemia N Eczema N Cancer N Stroke N Dementia N [...] ICD10 Code Diagnosis IMO Codes Diagnosis Note [id number] LIZZY SHEA PA-C [facility] [address] [address] 08/16/2025 10:32:40 08/16/2025 11:45:44 Sore throat 625864909 J02.9 33758 Allergic r hinitis caused by pollen 50225895 J30.1 45764133 Gastroesop hageal reflux disease without esophagitis 180565897 K21.9 587109 [id number] LIZZY SHEA PA-C [facility] [address] [place] [address] 09/10/2025 15:17:22 09/10/2025 15:42:37 Allergic rhinitis caused by pollen 26422241 J30.1 71008984 Gastroesop hageal reflux disease without esophagitis 184179941 K21.9 638187 Sore throat 622316801 J0 2.9 32295 Dysphonia 09266423 R49.0 737009 Dysphagia 12358428 R13.1 9 [id number] Health Concerns Section Related Observation LastModified by Organization Detai ls LastModified Time None Recorded Concern Status LastModified by Organization Details LastModified Time None Recorded Payers Encounter Date Sequence Insurance Name Policy Number Policy Jordan Covered Member ID Jordan Member ID Guarantor Name 09/10/2025 1 [facility] (MEDICAID REPLACEMENT - HMO) MAYUR Vazquez [id number] Mary Ellen Vazquez Notes Date Note Type [...] 40 mg twice daily. 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 At last visit flexible laryngoscopy was consistent with reflux as well as postnasal drip. She has been using Flonase which has been helpful in relieving congestion and postnasal drip but has not helped with her throat discomfort. No history of smoking or alcohol use and no red flag symptoms. LIZZY SHEA PA-C [address] [place] [address], [phone], [facility] - [facility] 09/10/2025 15:59:34 OBGyn Episode No OBEpisode recorded.
--- OUTSIDE RECORDS SUMMARY | 2025-11-04 07:01 | XMS_ITS | Encounter Summary ---
Author Organization [facility] Address [address] [place] [address] Phone Care Team Providers Care Sharepoint Designer Developer Name Role Phone Unavailable Primary Care Provider Unavailabl e Encounter Details Date Type Department Care Team (Late st Contact Info) Description 09/07/2013 Documentation [facility] Family Medicine [address] [place] [address] Family Medicine, Physician [address] [place] [address] Social History Tobacco Use Types Packs/Day Years [...]
--- OUTSIDE RECORDS SUMMARY | 2025-11-04 07:01 | XMS_ITS | Encounter Summary ---
Author Organization [facility] Address [address] [place] [address] Phone Care Team Providers Care Inspector Advanced Composite Name Role Phone Unavailable Primary Care Provider Unavailabl e Encounter Details Date Type Department Care Team (Late st Contact Info) Description 02/07/2015 Documentation [facility] [place] Family Medicine [address] [place] [address] Family Medicine, Physician [address] [place] [address] Social History Tobacco Use Types Packs/Day Years [...]
--- OUTSIDE RECORDS SUMMARY | 2025-11-04 07:01 | XMS_ITS | Encounter Summary ---
Author Organization [facility] Address [address] [place] [address] Phone Care Team Providers Care Director Post Name Role Phone Unavailable Primary Care Provider Unavailabl e Encounter Details Date Type Department Care Team (Late st Contact Info) Description 02/07/2015 Documentation [facility] Family Medicine [address] [place] [address] Family Medicine, Physician [address] [place] [address] Social History Tobacco Use Types Packs/Day Years [...]
--- OUTSIDE RECORDS SUMMARY | 2025-11-04 07:01 | XMS_ITS | Encounter Summary ---
Author Organization [facility] Address [address] [place] [address] Phone Care Team Providers Care Rn Shift Mgr Name Role Phone Unavailable Primary Care Provider Unavailabl e Encounter Details Date Type Department Care Team (Late st Contact Info) Description 02/13/2016 Documentation [facility] Family Medicine [address] [place] [address] Family Medicine, Physician [address] [place] [address] Social History Tobacco Use Types Packs/Day Years [...]
--- OUTSIDE RECORDS SUMMARY | 2025-11-04 07:01 | XMS_ITS | Encounter Summary ---
Author Organization [facility] Address [address] [place] [address] Phone Care Team Providers Care Head Teacher Name Role Phone Unavailable Primary Care Provider Unavailabl e Reason for Visit * Reason Comments Med Refill Encounter Details Date Type Department Care Team (Late st Contact Info) Description 06/10/2018 Refill [facility] [place] [address] [place] [address] Nicki Reed MD [address] [place] [address] Encounter for surveillance of contraceptive pills (Primary [...]
--- OUTSIDE RECORDS SUMMARY | 2025-11-04 07:01 | XMS_ITS | Continuity of Care Document ---
Author Organization [place] - [facility], [facility] Address [address] [place] [address] Care Team Providers Care Director Of Sales And Marketing Name Role Phone ARVIND NGUYEN Referring Provider [phone] Assessment Encounter Date Assessment Date Assessment LastModified [...] Organization Details Last Modified Time Details Appointments Establish ed 15 2025 09:00A Ty SHEA PA-C Not available Not available Not available Lab None recorded. Referral None recorded. Procedures None recorded. Surgeries None recorded. Imaging None recorded. Medication Orders Flonase Allergy Relief 50 mcg/actua tion nasal spray,eden pension 2024 025 Formerly [facility], [address] [place] [address], [address], 08/16/2025 11:57:37 Patient TargetsNo targets recorded. Patient InstructionsNo instructions recorded. Reason for Referral None Reported. Results Created Date Observation Date Name Description Value Unit Range Abnormal Flag Note LastModifiedBy Organization Detail LastModifiedTime 10/22/20 25 lauren metry testi ng* No observ ation record ed. evensc Not Available 2024 09:24:25 Result Notes None recorded. Problems Name Problem SNOMED Code Status Onset Date Resolution Date Notes Provider Name and Address Organization Details Recorded Time Benign paroxysma l positiona l vertigo 667586730 Active 2019 Benign paroxysma l vertigo, right ear; Note: Date Diagnosed : 08/12/2020 2:11 PM (H81.11) Not Available [facility] 4 02:45:07 Disorder of right Eustachia n tube 53373976560 54961 Active 2019 Other specified disorders of Eustachia n tube, right ear; Note: Date Diagnosed : 08/12/2020 2:11 PM (H69.81) Not Available [facility] 4 02:45:05 Sore throat 087049110 Active 2024 LIZZY SHEA PA-C [address] [place],[address], [place], [address] , [facility] - [facility] 5 11:56:17 Allergic rhinitis caused by pollen 18300192 Active 2024 LIZZY SHEA PA-C [address], [place], [address] , [place] [facility] 5 11:56:24 Gastroeso phageal reflux disease without esophagit is 503935155 Active 2024 LIZZY SHEA PA-C [address], [place], [address] , [place] [facility] 5 11:56:37 Dysphonia 56478934 Active 2024 LIZZY SHEA PA-C [address], [place], [address] , [place] [facility] 5 15:58:05 Dysphagia 83505407 Active 2024 LIZZY SHEA PA-C [address] [facility],[place] [address], [place], [address] , [place] [facility] 5 15:58:07 Chronic rhinitis 20347506 Active 2024 LEONA SCHAFFERJosh [facility] [place],[address], [address] , [facility] - [facility] 09:20:20 Problem Notes None recorded. Procedures Surgical History Date Name Laterality Status Provider Name and Address Organization Details Recorded Time 10/22/20 25 Allergy Testing-Full completed LEONA SCHAFFER [address] [facility],[place] [address], [place], [address], [facility] 10/22/2025 10:21:03 08/16/20 25 Fiberoptic Laryngoscopy (Comprehensive) completed LIZZY SHEA PA-C [address] [facility],[place] [address], [place], [address], [facility] - [facility] 08/16/2025 11:54:46 Imaging Results None recorded. Procedure Notes None recorded. Medical Equipment None Reported. Allergies Allergen ID Allergen Name Allergen Category Reaction Reaction Severity Criticality Documentation Date Start Date Code Code System Note Provider Name and Address Organization Details Recorded Time 388007 honey bee venom environme nt Not available Not available Not available 08/16/2025 23675 7 RxNorm Ramona montes [place] - [facility] 5 10:37:44 650519 poppy seed oil food Not available Not available Not available 08/16/2025 92017 99 RxNorm Ramona montes [place] [facility] 5 10:37:44 343462 tree and shrub pollen environme nt,medica tion Not available Not available Not available 08/16/2025 Ramona montes [place] [facility] 5 10:37:44 415148 bee pollen environme nt,medica tion Not available Not available Not available 10/22/20252024 74022 7 RxNorm Not Available yonathan - External Data Service - prod 03:27:13 Medications Name Sig Start Date Stop [...] Updated DateTime 08/16/2025 162.56 cm 39.5 kg/m2 014832.25 g 132/74 mm[Hg] Ramona Boyle [place] - [facility] 08/16/2025 10:39:03 Social History Question Answer Notes LastModified by Organizat ion Details LastModified Time Tobacco Smoking Status Never Smoker Ramona montes [place] - [facility] 08/16/2025 10:37:55 How Many Years Have You Consumed Alcohol? 6 [email or web address] Information not available 09/10/2025 What Type Of Welder Apprentice Combination Do You Use? None [email or web address] Information not available 08/16/2025 How Many Alcoholic Drinks Do You Consume Per Day On Average? 0 [email or web address] Information not available 09/10/2025 Which Illicit Or Recreational Drugs Have You Used? Marijuana Gummies [email or web address] Information not available 08/16/2025 How Many Years Have You Used Illicit Or Recreational Drugs? 3 [email or web address] Information not available 09/10/2025 Do You Have Any Pets? Yes [email or web address] Information not available 08/16/2025 Are You Passively Exposed To Smoke? No Information no t available 08/16/2025 Are There Any Smokers In Your House? No [email or web address] Information not available 08/16/2025 Have You Used IV Drugs? No [email or web address] Information not available 08/16/2025 Sex: Unknown Functional Status Question Answer Note LastModified by Organization Details LastModified Time How many times per week do you consume alcohol? Less than 1 time per week [email or web address] Inform ation not available 08/16/2025 Do you use any illicit or recreational drugs? Yes [email or web address] Information not available 08/16/2025 Do you or have you ever used any other forms of tobacco or nicotine? No [email or web address] Information not available 08/16/2025 What is your level of alcohol consumption? Occasional [email or web address] Information not available 08/16/2025 What type of noise exposure are you exposed to? noExposureToExcessiveNoise [email or web address] Infor mation not available 08/16/2025 Mental Status None recorded. Family History Nothing Reported. Medical History Condition Response Allergies/Hayfever Y Heart Problems N Anxiety Y Tonsil Infections Y Emphysema N Migraines Y Thyroid Problems N COPD N Depression Y Developmental Delay N Glaucoma N Nasal or Sinus Problems Y Anemia N Immune System Disorder N Anesthesia Complications N Heart Attack (DE) N Other Skin Condition N Diabetes Y [...] ICD10 Code Diagnosis IMO Codes Diagnosis Note [id number] LIZZY SHEA PA-C [facility] of [address] [address] 08/16/2025 10:32:40 08/16/2025 11:45:44 Sore throat 934088212 J02.9 38206 Allergic r hinitis caused by pollen 71553850 J30.1 08280074 Gastroesop hageal reflux disease without esophagitis 614406298 K21.9 866623 Health Concerns Section Related Observation LastModified by Organization Detai ls LastModified Time None Recorded Concern Status LastModified by Organization Details LastModified Time None Recorded Payers Encounter Date Sequence Insurance Name Policy Number Policy Jordan Covered Member ID Jordan Member ID Guarantor Name 08/16/2025 1 [facility] [employer] (MEDICAID REPLACEMENT - HMO) MAYUR Vazquez [id number] Mary Ellen Vazquez Notes Date Note Type [...] 2 weeks recently. LIZZY SHEA PA-C [address] [address], [place], [address], [place] [facility] 08/16/2025 11:58:06 OBGyn Episode No OBEpisode recorded.
--- OUTSIDE RECORDS SUMMARY | 2025-11-04 07:01 | XMS_ITS | Encounter Summary ---
Author Organization [facility] Address [address] [place] [address] Phone Care Team Providers Care Professional Skateboarder Name Role Phone Michelle Castellanos MD Primary Care Provider + Sofy Rothman PA-C Unavailable [phone] Encounter Details Date Type Department Care Team (Late st Contact Info) Description 07/19/2023 Procedure Pass [facility], [facility] [address] [place] [address] Social History Tobacco Use Types Packs/Day Years [...] high school, GED, job training, learning the Tunisian language, technical skills, or developing parenting skills)? [...] documented as of this encounter Care Teams Professional Skateboarder Relationship Specialty Start Date End Date Michelle Castellanos MD PCP - General Family Medicine 12/29/21 Sofy Rothman PA-C [address] [place] [address] Physician Bull Ladle Tender Hematology 07/05/22 documented as of this encounter Additional Source Comments The information contained in this document represents components of the legal health record. It is not the complete legal health record.[facility]
--- OUTSIDE RECORDS SUMMARY | 2025-11-04 07:01 | XMS_ITS | Encounter Summary ---
Author Organization [facility] Address [address] [place] [address] Phone Care Team Providers Care Channel Marketing Program Manager Name Role Phone Michelle Castellanos MD Primary Care Provider + Sofy Rothman PA-C Unavailable [phone] Encounter Details Date Type Department Care Team (Late st Contact Info) Description 01/14/2025 Procedure Pass [facility] Admitting Dept Virtual Department [address] [place] [address] Social History Tobacco Use Types Packs/Day Years [...] documented as of this encounter Care Teams Channel Marketing Program Manager Relationship Specialty Start Date End Date Michelle Castellanos MD PCP - General Family Medicine 12/29/21 Sofy Rothman PA-C [address] [place] [id number] [email or web address] Physician Return To Vendor Hematology 07/05/22 documented as of this encounter Additional Source Comments The information contained in this document represents components of the legal health record. It is not the complete legal health record.[facility]
--- OUTSIDE RECORDS SUMMARY | 2025-11-04 07:01 | XMS_ITS | Clinical Summary ---
Author Organization [facility] Address [address] [place] [address] Phone Care Team Providers Care Workday Manager Name Role Phone Michelle Castellanos MD Primary Care Provider + Sofy Rothman PA-C Unavailable [phone] Allergies Active Allergy Reactions Criticality Noted Date [...] VYVANSE 10 mg capsule 11/08/19 25 Active EPINEPHrine 0.3 mg/0.3 mL auto-injector Inject 0.3 mL (0.3 mg total) into the muscle as needed for anaphylaxis. 2 each 11 03/13/20 25 Active TRULICITY 4.5 mg/0.5 mL subcutaneous injectionIndicat ions:Type 2 diabetes mellitus with hyperglycemia, without long-term current use of insulin INJECT 0.5 ML (4.5 MG TOTAL) UNDER THE SKIN EVERY 7 DAYS. 6 mL 05/15/20 25 Active famotidine (PEPCID) 40 MG tablet Take 40 mg by mouth 2 (two) times a day. Active docusate sodium (COLACE) 100 MG capsule Take 1 capsule (100 mg total) by mouth 2 (two) times a day. 30 capsule 1 11/21/19 25 025 Discontin ued(No longer taking) Active Problems Problem Noted Date Diagnosed Date [...] Encounters Date Type Department Care Team Description 10/14/2025 4:10 PM EST Office Visit [facility] [address] [place] [address] [place] [address] Edna Naidu MD Encounter for gynecological examination without abnormal finding (Primary Dx) from Last 3 Months Immunizations Immunization Administration Dates Next Due DTaP 10/01/2002, 9,1998,09/25,1998 CMpR-Vfv-MGN 09/18/1999, 9,1998,06/17 HPV,quadrivalent 03/09/2011,09/25/2009, 9 Hepatitis A, [...] Packs/Day Years Used Date Smoking Tobacco: Never Passive Smoke Exposure: Never Smokeless Tobacco: Never Tobacco Cessation:Counseling Given: Not Answered Alcohol Use Standard Drinks/Week Comments Yes 0 [...] a working camera? Not on file Comments No Sex and Gender Information Value Date Recorded Sex Assigned at Female 02/02/2022 3:11 PM EDT Legal Sex Female 3:04 PM EST Gender Identity Female 02/02/2022 3:11 PM EDT Sexual Orientation Bisexual 02/02/2022 3: 11 PM EDT Last Filed Vital Signs Vital Sign Reading Time Taken Comments Blood Pressure 100/70 10/14/2025 4:26 PM EST Pulse 87 01/14/2025 10:50 AM EDT Temperature 36 C (96.8 F) 01/14/2025 10:31 AM EDT Respiratory Rate 21 01/14/2025 10:50 AM EDT Oxygen Saturation 100% 01/14/2025 10:50 AM EDT Inhaled Oxygen Concentration - - Weight 105.2 kg (232 lb) 10/14/2025 4:26 PM EST Height 162.6 cm (5' 4 ) 10/14/2025 4:26 PM EST Body Mass Index 39.82 10/14/2025 4:26 PM EST Plan of Treatment Health Maintenance Due Date Last Done Comments HEMOGLOBIN A1C 03/29/2024 12/30/2023, 07/08, 07/19/2023, Additional history exists DEPRESSION SCREENING 11/11/2024 11/11/2023, 11/11/19 DIABETIC EYE EXAM 12/03/2024 12/03/2023, , 06/18/2022 LIPID PANEL 12/30/2024 12/30/2023, 01/05, 01/17/2023, Additional history exists URINE MICROALBUMIN/CREATININE RATIO 01/11/2025 01/12/2024, 03/02/2023, 01/19/2023, Additional history exists INFLUENZA VACCINE (#1) 2025 , 08/26/2016, 07/07/2015, Additional history exists COVID-19 VACCINE ( season) 2025 05/07/2021, 04/09/2021 CREATININE LEVEL 01/10/2026 01/10/2025, , 01/17/2023, Additional history exists BLOOD PRESSURE 04/14/2026 10/14/2025 PAP SMEAR 06/27/2027 06/27/2024 Adult Td,Tdap Booster [...] STATUS SCREENING (Once After 26 Yrs) Completed 10/14/2025 MENINGOCOCCAL VACCINES (B) Aged Out N o [...] EST) SODIUM 139 133 - 146 mmol/L [facility] POTASSIUM 4.2 3.3 - 5.1 mmol/L [facility] CHLORIDE 103 96 - 108 mmol/L [facility] CO2 26 21 - 35 mmol/L [facility] BUN 10 6 - 19 mg/dL [facility] CREATININE 0.60 0.5 - 1.5 mg/dL [facility] GLUCOSE 211(H) 70 - 99 mg/dL [facility] ALBUMIN 3.9 3.9 - 4.8 g/dL [facility] TOTAL PROTEIN 7.2 6.5 - 8.0 g/dL [facility] CALCIUM 8.9 8.4 - 10.3 mg/dL [facility] ALKALINE PHOSPHATASE 67 39 - 117 U/L [facility] TOTAL BILIRUBIN 0.5 0.0 - 1.2 mg/dL [facility] AST 28 0 - 37 U/L [facility] ALT 60(H) 0 - 40 U/L [facility] GLOBULIN 3.3 1 - 4.8 g/dL [facility] EGFR >120 >59 mL/min/1.7 3m2 [facility] Comment:Estimated glomerular filtration rate calculated using the CKD-EPI refit equation. ANION GAP 14 10 - 20 mmol/L [facility] Blood 01/10/2025 9:20 AM EST 01/10/2025 9:22 AM EST Sharona Alvarengarosaura PAN DEVULCANIZER LAB BLOOD BKR ORDERABLES Final Result [address] [id number] * Pap Test (06/27/2024 12:00 AM EDT) Report [address] [address] Oven Baker: Margot Cason MD GROUND WATER PUMP INSTALLER Cytology Report FINAL DIAGNOSIS A. PAP SMEAR (THIN PREP) CE: SPECIMEN ADEQUACY: Satisfactory for evaluation; transformation zone present. INTERPRETATION: NEGATIVE FOR INTRAEPITHELIAL LESION OR MALIGNANCY. Due to blood, the specimen was reprocessed with 10% Glacial Acetic Acid. This specimen was analyzed by the automated ThinPrep Imaging System ([employer].) and manually rescreened by a foam dispenser and/or pathologist. Electronically Signed Out By: ANN MARIE oMrales(ASCP) The Pap test is a screening test [...] : 2000 (Age: 24) Sex: F Institution: [facility] Location: [facility] Date of Collection: 06/27/2024 Date of Reported: 07/02/2024 15:26 Results to: Edna Naidu MD [facility] Final Diagnosis A. PAP SMEAR (THIN PREP) CE: SPECIMEN ADEQUACY: Satisfactory for evaluation; transformation zone present. INTERPRETATION: NEGATIVE FOR INTRAEPITHELIAL LESION OR MALIGNANCY. Due to blood, the specimen was reprocessed with 10% Glacial Acetic Acid. This specimen was analyzed by the automated ThinPrep Imaging System ([employer].) and manually rescreened by a foam dispenser and/or pathologist. [facility] Conversion Type (Conversion Source) 06/27/2024 06/28/2024 10:33 AM EDT us Edna Naidu MD CYTOLOGY ORDERABLES Edited Re sult - Final Performing Organization Address [facility] Co de Phone Number [address] [address] * Microalbumin/creatinine ratio, random urine (01/12/2024 8:05 AM EST) URINE MICROALBUMIN <1.2 0 - 2.3 mg/dL [facility] URINE CREATININE 175 mg/dL [facility] MICROALB/CRE RATIO NOT CALCULATED 0 - 20 mg/g Cre [facility] Comment:due to Microalbumin <1.2 Urine (Urine) 01/12/2024 8:0 5 AM EST 01/12/2024 8:09 AM EST us Michelle Castellanos MD LAB URINE ORDERABLES Fin al Result Performing Organization Address [facility] Co de Phone Number [address] [address] * (ABNORMAL) Hemoglobin A1c (12/30/2023 8:24 AM EST) HEMOGLOBIN A1C 9.0(H) 4.3 - 5.8 % [facility] Blood 12/30/2023 8:24 AM EST 12/30/2023 8:26 AM EST us Michelle Castellanos MD LAB BLOOD BKR ORDERABLES Final Result Performing Organization Address [facility]/ZIP Co de Phone Number [address] [address] * (ABNORMAL) Lipid panel (12/30/2023 8:24 AM EST) HDL 49 mg/dL [facility] Comment: Interpretation <40 mg/dL: Low HDL cholesterol (major risk factor for CHD) Greater than or equal to 60 mg/dL: High HDL cholesterol ( negative risk factor for CHD) HDL - cholesterol is affected by a number of factors, e.g. smoking, excerise, hormones, sex and age. CHOLESTEROL 216 0 - 240 mg/dL [facility] TRIGLYCERIDES 118 30 - 160 mg/dL [facility] LDL 143(H) 50 - 129 mg/dL [facility] Comment: LDL levels in terms of risk for coronary heart disease: <100 mg/dL: Optimal 100-129 mg/dL: Near or above optimal 130-159 mg/dL: Borderline high 160-189 mg/dL: High >190 mg/dL: Very High CARDIAC RISK RATIO 4.4 3.3 - 4.4 [facility] Blood 12/30/2023 8:24 AM EST 12/30/2023 8:26 AM EST Michelle Castellanos MD LAB BLOOD BKR ORDERABLES Final Result [address] [address] * DIABETES EYE EXAM FOR RESULT ENTRY ONLY (12/03/2023 4:39 PM EST) us Historical Provider HEALTH MAINTENANCE Final Result * Hepatitis B core antibody, total (05/18/2022 2:31 PM EDT) HEP B CORE AB, TOT NON-REACTI VE NON-REACTI VE [facility] Blood 05/18/2022 2:31 PM EDT 05/18/2022 2:33 PM EDT Michelle Castellanos MD LAB BLOOD BKR ORDERABLES Final Result [facility] [address] [place] [address] from Last 3 Months or Most Recently Relevant to Health Maintenance [place] [address] [place] [address] [place] [address] [place] [address] [place] [address] [place] [address] ACO Care Teams Workday Manager Relationship Specialty Start Date End Date Michelle Castellanos MD [email or web address] PCP - General Family Medicine 12/29/21 Sofy Rothman PA-C [address] [place] [address] [email or web address] Physician Fire Engine Pump Operator Hematology 07/05/22 Additional Source Comments The information contained in this document represents components of the legal health record. It is not the complete legal health record.[facility]
--- OUTSIDE RECORDS SUMMARY | 2025-11-04 07:01 | XMS_ITS | Encounter Summary ---
Author Organization [facility] Address [address] [place] [address] Phone Care Team Providers Care Vacuum Cooker Operator Name Role Phone Unavailable Primary Care Provider Unavailabl e Encounter Details Date Type Department Care Team (Late st Contact Info) Description 06/23/2017 Conversion Encounter [facility] - [address] [address] Social History Tobacco Use Types Packs/Day Years [...]
--- OUTSIDE RECORDS SUMMARY | 2025-11-04 07:01 | XMS_ITS | Clinical Summary ---
Author Organization [facility] Address [address] [place] [address] Phone Care Team Providers Care Simulation Technician Name Role Phone Unavailable Primary Care Provider [...] complete this topic Procedures * Due to [place] [employer] law, this organization might not be sharing sensitive test results. Procedure Name Priority Date/Time Associated Diagnosis Comments CHLAMYDIA AND GONORRHEA, AMPLIFIED Routine 05/16/2017 2:07 PM EDT from Last 3 Months or Most Recently Relevant to Health Maintenance Results * Due to [place] [employer] law, this organization might not be sharing sensitive test results. * Chlamydia and Gonorrhoea, Amplified (05/16/2017 2:07 PM EDT) URINE CHLAMYDIA AMP PROBE NEGATIVE [facility] Comment: No Chlamydia Trachomatis RNA detected in this patient's sample (REFERENCE RANGE/NORMAL VALUE: NOT DETECTED) URINE GC AMP PROBE NEGATIVE [facility] Comment: No Neisseria Gonorrhoeae RNA detected in this patient's sample (REFERENCE RANGE/NORMAL VALUE: NOT DETECTED) NOTE: This test uses wastewater treatment plant chemist-mediated amplification method to detect rRNA from C.Trachomatis [...] without risk of sexual abuse. Consult the [facility] if needed. Contact phone number . Therapeutic failure or success cannot be determined with the Aptima Combo2 assay since nucleic acid may persist following appropriate antimicrobial therapy. The Centers for Disease Control and Prevention (CDC) recommends confirmatory retesting using culture or a different nucleic acid amplification test when positive results occur, if indicated. Testing performed or reported by [facility], a Service of [facility], [address] [place] [address] [place] [id number] yLle Mendoza MD, PhD, Sr. Pricing Analyst 05/16/2017 2:07 PM EDT Narrative [facility] - 05/16/2017 2:07 PM EDT URINE CHLAMYDIA GC AMP PROBE us Nicki Reed MD LAB MICROBIOLOGY - GENERAL O RDERABLES Final Result [facility] [address] [place] [address], from Last 3 Months or Most Recently Relevant to Health Maintenance Insurance [place]
--- OUTSIDE RECORDS SUMMARY | 2025-11-04 07:01 | XMS_ITS | Data Portability ---
Author Organization [place] - [facility], Allergy Address [address] [place] [address] Care Team Providers Care Flight Crew Ordnanceman Name Role Phone ARVIND NGUYEN Referring Provider [...] this for now. All questions were answered. tim Not available 09/10/2025 15:57:46 Plan of Treatment Reminders Order Date Submit Date Provider Last Modified By Organization Details Last Modified Time Details Appointments Establi shed 15 2025 09:00A M LIZZY [...] uation nasal spray,s uspensi on 2024 025 On license of [facility], [address] [place] [address], [address], 08/16/2025 11:57:37 Patient TargetsNo targets recorded. Patient Instructions Encounter Date Encounter Id Patient Instructions Last Modified By Organization Details Last Modified Time 10/22/2025 [id number] spirometry testing* YONATHAN Not available 10/22/2025 10:22:49 Reason for Referral None Reported. Results Created [...] Time Benign paroxysma l positiona l vertigo 810463449 Active 2019 Benign paroxysma l vertigo, right ear; Note: Date Diagnosed : 08/12/2020 2:11 PM (H81.11) Not Available [facility] 4 02:45:07 Disorder of right Eustachia n tube 12727987313 08678 Active 2019 Other specified disorders of Eustachia n tube, right ear; Note: Date Diagnosed : 08/12/2020 2:11 PM (H69.81) Not Available [facility] 4 02:45:05 Sore throat 488942978 Active 2024 LIZZY SHEA PA-C 100 [facility],[place] [address], [place], [address] , [place] - [facility] 5 11:56:17 Allergic rhinitis caused by pollen 48418077 Active 2024 LIZZY SHEA PA-C 100 [facility],[place] [address], [place], [address] , [place] [facility] 5 11:56:24 Gastroeso phageal reflux disease without esophagit is 672354604 Active 2024 LIZZY SHEA PA-C 100 [facility],[place] [address], [place], [address] , [place] [facility] 5 11:56:37 Dysphonia 14333894 Active 2024 LIZZY SHEA PA-C [address] [place],[address] [facility], [place], [address] , [place] - [facility] [place] 5 15:58:05 Dysphagia 21958195 Active 2024 LIZZY SHEA PA-C 100 [facility] [place],[address], [place], [address] , [place] [facility] [place] 5 15:58:07 Chronic rhinitis 00108428 Active 2024 MADELAINEDAYANARA GODINEZ JOHN 100 [facility],[place] [address], [place], [address] , [facility] 5 09:20:20 Problem Notes None recorded. Procedures Surgical History Date Name Laterality Status Provider Name and Address Organization Details Recorded Time 10/22/20 25 Allergy Testing-Full completed MADELAINE GRETCHEN JOHN 100 [facility],[place] [address], [place], [address], [facility] 10/22/2025 10:21:03 08/16/20 25 Fiberoptic Laryngoscopy (Comprehensive) completed LIZZY SHEA PA-C 100 [facility],[place] [address], [place], [address], [facility] 08/16/2025 11:54:46 Imaging Results None recorded. Procedure Notes None recorded. Medical Equipment None Reported. Allergies Allergen ID Allergen Name Allergen Category Reaction Reaction Severity Criticality Documentation Date Start Date Code Code System Note Provider Name and Address Organization Details Recorded Time 628577 honey bee venom environme nt Not available Not available Not available 08/16/2025 02232 7 RxNorm Ramona montes [place] - [facility] 5 10:37:44 434302 poppy seed oil food Not available Not available Not available 08/16/2025 24170 99 RxNorm Ramona montes [facility] 5 10:37:44 881189 tree and shrub pollen environme nt,medica tion Not available Not available Not available 08/16/2025 Ramona montes [facility] 5 10:37:44 231997 bee pollen environme nt,medica tion Not available Not available Not available 10/22/20252024 58424 7 RxNorm Not Available yonathan - External [...] Updated DateTime 08/16/2025 162.56 cm 39.5 kg/m2 062685.25 g 132/74 mm[Hg] Ramona Boyle [place] - [facility] 08/16/2025 10:39:03 Date Recorded Body height Body mass index (BMI) Body weight Systolic And Diastolic Provider Name and Address Organization Details Last Updated DateTime 09/10/2025 162.56 cm 39.5 kg/m2 303366.25 g 118/82 mm[Hg] Gosia Yeh [facility] 09/10/2025 15:26:40 Date Recorded Body height Body mass index (BMI) Body weight Oxygen saturation Heart rate Systolic And Diastolic Provider Name and Address Organization Details Last Updated DateTime 162.56 cm 40 kg/m2 560024. 02 g 99 % 70 /min 115/80 mm[Hg] MADELAINE GODINEZ, [facility] [address], [address] [place], [place] - [facility] 09:15:02 Social History Question Answer Notes LastModified by Organizat ion Details LastModified Time Tobacco Smoking Status Never Smoker Ramona Boyle [facility] 08/16/2025 10:37:55 How Many Years Have You Consumed Alcohol? 6 [email or web address] Information not available 09/10/2025 What Type Of Quarry Supervisor Dimension Stone Do You Use? None [email or web address] Information not available 08/16/2025 How Many Alcoholic Drinks Do You Consume Per Day On Average? 0 [email or web address] Information not available 09/10/2025 Which Illicit Or Recreational Drugs Have You Used? Marijuana Gummies [email or web address] Information not available 08/16/2025 How Many Years Have You Used Illicit Or Recreational Drugs? 3 Information not available 09/10/2025 Do You Have Any Pets? Yes [email or web address] Information not available 08/16/2025 Are You Passively Exposed To Smoke? No [email or web address] Information no t available 08/16/2025 Are There Any Smokers In Your House? No [email or web address] Information not available 08/16/2025 Have You Used IV Drugs? No [email or web address] Information not available 08/16/2025 Sex: Unknown Functional Status Question Answer Note LastModified by Organization Details LastModified Time How many times per week do you consume alcohol? Less than 1 time per week [email or web address] Inform ation not available 08/16/2025 Do you use any illicit or recreational drugs? Yes [email or web address] Information not available 08/16/2025 Do you or have you ever used any other forms of tobacco or nicotine? No [email or web address] Information not available 08/16/2025 What is your level of alcohol consumption? Occasional [email or web address] Information not available 08/16/2025 What type of noise exposure are you exposed to? noExposureToExcessiveNoise [email or web address] Infor mation not available 08/16/2025 Mental Status None recorded. Family History Nothing Reported. Medical History Condition Response Allergies/Hayfever Y Heart Problems N Anxiety Y Tonsil Infections Y Emphysema N Migraines Y Thyroid Problems N Depression Y COPD N Developmental Delay N Glaucoma N Nasal or Sinus Problems Y Anemia N Immune System Disorder N Anesthesia Complications N Heart Attack ([place]) N Other Skin Condition N Diabetes Y [...] ICD10 Code Diagnosis IMO Codes Diagnosis Note [id number] LIZZY SHEA PA-C [facility] [address] [address] 08/16/2025 10:32:40 08/16/2025 11:45:44 Sore throat 743730249 J02.9 63816 Allergic r hinitis caused by pollen 03617357 J30.1 83733733 Gastroesop hageal reflux disease without esophagitis 741772267 K21.9 381550 [id number] LIZZY SHEA PA-C [facility] 100 [place] [address] 09/10/2025 15:17:22 09/10/2025 15:42:37 Allergic rhinitis caused by pollen 72386661 J30.1 16650583 Gastroesop hageal reflux disease without esophagitis 608065466 K21.9 739619 Sore throat 716182123 J0 2.9 64289 Dysphonia 23694934 R49.0 576097 Dysphagia 52062521 R13.1 9 [id number] SANTO LIND, A Allergy 100 [facility] 100 [place] [address] 10/22/2025 08:40:12 10/22/2025 10:22:03 Chronic rhinitis 83479265 J31.0 2545 Health Concerns Section Related Observation LastModified by Organization Detai ls LastModified Time None Recorded Concern Status LastModified by Organization Details LastModified Time None Recorded Advance Directives Directive None Recorded Payers Insurance Date Sequence Insurance Name Policy Number Policy Jordan Covered Member ID Jordan Member ID Guarantor Name 10/19/2025 1 [facility] (MEDICAID REPLACEMENT - HMO) MAYUR Vazquez [id number] Mary Ellen Vazquez Notes Date Note Type [...] in 2 weeks recently. LIZZY SHEA PA-C [address] [place] [address], [address], [place] - [facility] 08/16/2025 11:58:06 09/10/2025 text/html ROS as noted [...] 40 mg twice daily. 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 At last visit flexible laryngoscopy was consistent with reflux as well as postnasal drip. She has been using Flonase which has been helpful in relieving congestion and postnasal drip but has not helped with her throat discomfort. No history of smoking or alcohol use and no red flag symptoms. LIZZY SHEA PA-C [address] [place] [address], [address], [place] - [facility] 09/10/2025 15:59:34 OBGyn Episode No OBEpisode recorded.
--- OUTSIDE RECORDS SUMMARY | 2025-11-04 07:02 | XMS_ITS | Continuity of Care Document ---
Author Organization [place] - [facility], Allergy Address [address] [place] [address] Care Team Providers Care Shop Director Name Role Phone NGUYEN, ARVIND Referring Provider [phone] Assessment No assessment recorded. Plan of Treatment Reminders Order Date Submit Date Provider Last Modified By Organization Details Last Modified Time Details Appointments Establish ed 15 2025 09:00A Ty SHEA PA-C Not available Not available Not available Lab None recorded. Referral None recorded. Procedures None recorded. Surgeries None recorded. Imaging None recorded. Medication Orders None recorded. Patient TargetsNo targets recorded. Patient Instructions Encounter Date Encounter Id Patient Instructions Last Modified By Organization Details Last Modified Time 10/22/2025 [id number] spirometry testing* YONATHAN Not available 10/22/2025 10:22:49 [...] Time Benign paroxysma l positiona l vertigo 498711848 Active 2019 Benign paroxysma l vertigo, right ear; Note: Date Diagnosed : 08/12/2020 2:11 PM (H81.11) Not Available [facility] 4 02:45:07 Disorder of right Eustachia n tube 47481105091 27736 Active 2019 Other specified disorders of Eustachia n tube, right ear; Note: Date Diagnosed : 08/12/2020 2:11 PM (H69.81) Not Available [facility] 4 02:45:05 Sore throat 187705997 Active 2024 LIZZY SHEA PA-C 100 [facility] [place] [facility] [place], [address] , [facility] [place] 5 11:56:17 Allergic rhinitis caused by pollen 31277587 Active 2024 LIZZY SHEA PA-C 100 [facility],[place] [facility], [place], [address] , [facility] - [facility] [place] 5 11:56:24 Gastroeso phageal reflux disease without esophagit is 808422136 Active 2024 LIZZY SHEA PA-C 100 [facility],[place] [facility], [place], [address] , [facility] - [facility] [place] 11:56:37 Dysphonia 26350952 Active 2024 LIZZY SHEA PA-C 100 [facility],[place] [facility], [facility] [place], [address] , [facility] - [facility] 15:58:05 Dysphagia 34715590 Active 2024 LIZZY SHEA PA-C 100 [facility],[place] [address], [facility] [place], [address] , [facility] - [facility] [place] 15:58:07 Chronic rhinitis 42521610 Active 2024 JOHN SCHAFFER 100 [facility] [place] [address], [facility] [place], [address] , [facility] - [facility] [place] 5 09:20:20 Problem Notes None recorded. Procedures Surgical History Date Name Laterality Status Provider Name and Address Organization Details Recorded Time 10/22/20 25 Allergy Testing-Full completed JOHN SCHAFFER 100 [facility] [place],[address], [place], [address], [facility] - [facility] [place] 10/22/2025 10:21:03 08/16/20 25 Fiberoptic Laryngoscopy (Comprehensive) completed LIZZY SHEA PA-C [address] [place] [address], [address], [place] - [facility] 08/16/2025 11:54:46 Imaging Results None recorded. Procedure Notes None recorded. Medical Equipment None Reported. Allergies Allergen ID Allergen Name Allergen Category Reaction Reaction Severity Criticality Documentation Date Start Date Code Code System Note Provider Name and Address Organization Details Recorded Time 525882 honey bee venom environme nt Not available Not available Not available 08/16/2025 31322 7 RxNorm Ramona montes [place] - [facility] 10:37:44 469261 poppy seed oil food Not available Not available Not available 08/16/2025 14391 99 RxNorm Ramona montes [place] - [facility] 10:37:44 798970 tree and shrub pollen environme nt,medica tion Not available Not available Not available 08/16/2025 Ramona montes [place] - [facility] 10:37:44 050277 bee pollen environme nt,medica tion Not available Not available Not available 10/22/20252024 66509 7 RxNorm Not Available yonathan - External [...] and Address Organization Details Last Updated DateTime 5 162.56 cm 40 kg/m2 707755. 02 g 99 % 70 /min 115/80 mm[Hg] MADELAINE GODINEZ Josh [address], [address] [place] - [facility] 5 09:15:02 Social History Question Answer Notes LastModified by Organizat ion Details LastModified Time Tobacco Smoking Status Never Smoker Ramona montes [place] - [facility] 08/16/2025 10:37:55 How Many Years Have You Consumed Alcohol? 6 [email or web address] Information not available 09/10/2025 What Type Of Director Group Sales Do You Use? None [email or web address] Information not available 08/16/2025 How Many Alcoholic Drinks Do You Consume Per Day On Average? 0 [email or web address] Information not available 09/10/2025 Which Illicit Or Recreational Drugs Have You Used? Marijuana Gummies [email or web address] Information not available 08/16/2025 How Many Years Have You Used Illicit Or Recreational Drugs? 3 Information not available 09/10/2025 Do You Have Any Pets? Yes [email or web address] Information not available 08/16/2025 Are You Passively Exposed To Smoke? No [email or web address] Information no t available 08/16/2025 Are There Any Smokers In Your House? No [email or web address] Information not available 08/16/2025 Have You Used IV Drugs? No [email or web address] Information not available 08/16/2025 Sex: Unknown Functional Status Question Answer Note LastModified by Organization Details LastModified Time How many times per week do you consume alcohol? Less than 1 time per week [email or web address] Inform ation not available 08/16/2025 Do you use any illicit or recreational drugs? Yes [email or web address] Information not available 08/16/2025 Do you or have you ever used any other forms of tobacco or nicotine? No [email or web address] Information not available 08/16/2025 What is your level of alcohol consumption? Occasional [email or web address] Information not available 08/16/2025 What type of noise exposure are you exposed to? noExposureToExcessiveNoise Infor mation not available 08/16/2025 Mental Status None recorded. Family History Nothing Reported. Medical History Condition Response Allergies/Hayfever Y Heart Problems N Anxiety Y Tonsil Infections Y Emphysema N Migraines Y Thyroid Problems N Glaucoma N Depression Y COPD N Developmental Delay N Nasal or Sinus Problems Y Anemia N Immune System Disorder N Anesthesia Complications N Heart Attack ([place]) N Other Skin Condition N Diabetes Y Rhinitis N Bleeding Disorder N Food Allergy Y Arthritis N Hearing Loss Y Hyperlipidemia N Cancer N Eczema N Stroke N Dementia N Nasal polyps N Asthma Y High Cholesterol N Sleep Disorder N GERD/Reflux Y Liver Disease N Headaches Y Fibromyalgia N Hypertension N Speech Delay N Kidney Disease N Gynecological HistoryNo gynecological history recorded. Obstetrics History GPAL:G 0 P 0 0 0 0 Past Encounters Encounter ID Performer Location Encounter Start Date Encounter Closed Date Diagnosis/Indication Diagnosis SNOMED-CT Code Diagnosis ICD10 Code Diagnosis IMO Codes Diagnosis Note [id number] SANTO LINDC, RMA Allergy 100 [facility] 100 [place] [address] 10/22/2025 08:40:12 10/22/2025 10:22:03 Chronic rhinitis 79390364 J31.0 2545 Health Concerns Section Related Observation LastModified by Organization Detai ls LastModified Time None Recorded Concern Status LastModified by Organization Details LastModified Time None Recorded Payers Encounter Date Sequence Insurance Name Policy Number Policy Jordan Covered Member ID Jordan Member ID Guarantor Name 10/22/2025 1 [facility] (MEDICAID REPLACEMENT - HMO) MAYUR Vazquez [id number] Mary Ellen Vazquez OBGyn Episode No OBEpisode recorded.
--- NOTE | 2025-11-04 07:56 | MHC.AMDMED ---
Intake Intake Visit Reasons: 60 min Network Security Architect Required: No Accompanied by: Mother Allergies bee pollen (BEE STINGS) Allergy (Unknown, Verified 10/14/25 08:01) LEGS SWELL UP poppyseed oil (POPPYSEED OIL) Allergy (Unknown, Verified 10/14/25 08:01) ITCHY THROAT HPI Comprehensive Diabetes Asmnt Most Recent Diabetes Results: Microalb/Creat Ratio, (<30) 12.2 ug/mg cr 04/10/25 Cholesterol, (<200) 218 mg/dL H 04/10/25 HDL Cholesterol, (>40) 41 mg/dL 04/10/25 Triglycerides, (<150) 151 mg/dL H 04/10/25 Creatinine, (0.5-1.4) 0.69 mg/dL 04/23/25 BUN, (9-16) 11 mg/dL 04/23/25 Sodium, (135-145) 138 mmol/L 04/23/25 Potassium, (3.3-5.1) 3.9 mmol/L 04/23/25 Chloride, (96-108) 107 mmol/L 04/23/25 Carbon Dioxide, (22-29) 25 mmol/L 04/23/25 Calcium, (8.4-10.2) 9.0 mg/dL 04/23/25 AST, (5-31) 32 U/L H 04/23/25 ALT, (0-31) 77 U/L H 04/23/25 Total Protein, (6.5-8.0) 6.7 g/dL 04/23/25 Albumin, (3.5-5.0) 4.0 g/dL 04/23/25 PFSH Medical History (Reviewed 08/08/25 @ 08:41 by Desiree Ac [facility] Anxiety and depression Fatty liver Asthma Diabetes PCOS (polycystic ovarian syndrome) Surgical History Hx of wisdom tooth extraction Hx of colonoscopy (~01/2025) H/O endoscopy (~01/2025) Family History Father Substance abuse Mother Asthma Diabetes Maternal Grandmother Asthma Breast cancer Social History Household Members: Family Both parents involved: No Caregiver staying overnight: No Housing: House Are you a primary property caretaker to a significant other at home: No Do you presently have visiting nurse or other home services: No 75 years or older and lives alone: No Alcohol intake: current Alcohol intake frequency: holidays/special occasions only Patient Tobacco Use Status: Never used Tobacco e-Cigarette/Vaping Use: Never Used Second Hand Smoke Exposure: No Substance Use Type: Marijuana Current occupational status: employed 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 2= needs review? 3= comprehend keep point? 4= demonstrates understanding/ competent? NC= Not Covered Topics Learning Objective: Initial visit Initial or post srvc Initial or post srvc Initial or post srvc Initial or post srvc Initial or post srvc Post srvc Comments Pre Edu-assessment/plan Outcome or reassess Outcome or reassess Outcome or reassess Outcome or reassess Outcome or reassess Outcome or reassess Diabetes pathophysiology 1 Healthy eating 2 Being active 2 Taking medication 2 Monitoring glucose 2 Acute complication 1 Chronic complicated 1 Lifestyle and healthy coping 1 Diabetes distress in support 2 ?Diabetes pathophysiology: ?Defined diabetes med identify own type of diabetes; list 3 options for treating diabetes Healthy eating: ?Described effect of type, amount and ?timing of food on blood glucose; list 3 methods for planning meal Being active: ?State effect of exercise on blood glucose level Taking medication: ?State effect of diabetes medications on diabetes; name diabetes medications taking, action and side effects Monitoring glucose: ?Identify recommended blood glucose targets and personal target Acute complication: ?List symptoms and treatment of hyper and hypoglycemia, DKA, sick day guidelines and guidelines for severe weather or situations of crisis and diabetes supply manage Chronic complication: ?To find the relationship of blood glucose levels to long-term complications of diabetes in screening and preventative measures Lifestyle and healthy coping: ?Described lifestyle and healthy coping strategies to rule out diabetes self-management Diabetes to stress and support: ?Recognize Diabetes to stress and be able to identified support options Learning objectives: The patient was provided with verbal and written education on the following topics as outlined below. The patient met all learning objectives and was able to verbalize understanding and provide teach back of education topics discussed . The patient was provided with the opportunity to ask questions and all questions were answered. Patient Assessment Assess patient education level/literacy/barriers patient's A1c on 10/14/2025 10.6%. 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 Reports that she feels stress from her current occupation Patient questions/concerns, reports having difficulty motivating herself to make healthy changes in lifestyle Is currently taking Mounjaro 2.5 mg weekly Prescribed metformin but does not take due to GI upset Message sent to prescriber regarding Metformin, and to increase Mounjaro dose if appropriate What is Diabetes? Pathophysiology How the body produces and uses insulin Identify type of DM Risk factors Signs of Diabetes Brief overview of Diabetes Management Monitoring blood sugar Following a meal plan Regular exercise Maintaining a healthy weight Taking medication as needed Members of the care team (PCP, RN, MA, RD, CDE, pharmacy buyer) Blood glucose monitoring When/how often to test Target blood sugar ranges Introduction to Nutrition Importance of healthy diet in managing DM Diet is personalized to individual preference Review patient?s regular diet/food preferences Who prepares meals/does food shopping/ Dining out?/ Barriers? How diet effects glucose Eating 3 balanced meals a day with small, healthy snacks between meals Review food groups Carbohydrates: What is a carbohydrate/Which food/food groups are considered carbohydrates Effect of carbohydrates on blood glucose Portion sizes Reading food labels Basic carb counting (if applicable per nursing assessment) Plate method Meal planning Recommendations: Follow plate method, consistent carbs and read nutritional labels. Smart Goal: Patient will identify foods and current meal plan that contain carbohydrates Educational Materials: The patient was provided with the following written educational materials: Planning Healthy Meals Handout Patient Response to instructions: Comprehension of Instructions: Fair Readiness to make changes: Contemplation How confident they feel about making changes: Positive Portions of this note were created using voice recognition software, please excuse any words or phrases that may have been misinterpreted. Medications: Discontinued metformin ER Discontinued Reason: Doctor's Order 1,000 mg (2 x 500 mg) PO DAILY 180 tabs 0RF Mounjaro (tirzepatide) for 4 weeks Discontinued Reason: Doctor's Order 2.5 mg (0.5 mL) subcut QWEEK 2 mL 0RF NS Patient Instructions: Include regular daily activity. ADA recommends 30 minutes of exercise 5 days a week. Weight loss talk to PCP or Digital Advertising Specialist before starting new plan. Test blood sugar as directed; Fasting and 2hpp largest meal. Watch trends in results. Utilize results and to assess how food, physical activity and medications affect blood sugar results. Bring glucometer or CGM to next visit. Be knowledgeable about diabetes medication, its action, side effects, efficacy, toxicity, prescribed dosage, appropriate timing and frequency of administration, effect of missed and delayed doses and instructions for storage, travel and safety. Problem solving techniques to monitor hypo/hyperglycemia episodes and treatments. Reduce risk reduction behaviors, smoking cessation, regular eye, foot and dental examinations. Coding Level of Care Code Est Pt Level 1 (23562) Diagnoses DM type 2 causing complication E11.8
== END 2025-11-04 07:59 | disposition home or self-care (01) ==
LOC: HO.ENCR 06:59
PROVIDERS: PCP Nurse Practitioner Family; Visit Provider Registered Nurse Diabetes Educator
DX: E11.8 Type 2 diabetes mellitus with unspecified complications (principal)

== ENCOUNTER → 2025-11-04 06:58 | Outpatient (BNVA) | payer OTHER, SELFPAY | PROVIDERS: PCP Nurse Practitioner Family; Visit Provider Registered Nurse Diabetes Educator | DX: E11.8 Type 2 diabetes mellitus with unspecified complications (principal); Z79.84 Long term (current) use of oral hypoglycemic drugs; Z79.85 Long-term (current) use of injectable non-insulin antidiabetic drugs | CPT/HCPCS: 99211 ==